=== PATIENT | male | born 1960 | race Caucasian/White ===

== ENCOUNTER → 2023-01-25 07:35 | Outpatient (REF) | payer OTHER, SELFPAY | LOC: EMG 07:35 | PROVIDERS: ATTENDING PHYSICIAN Family Medicine | DX: M50.10 Cervical disc disorder with radiculopathy, unspecified cervical region (principal) | CPT/HCPCS: 95886; 95911 ==

== ENCOUNTER → 2023-10-29 08:27 | Outpatient (REF) | payer OTHER, SELFPAY | LOC: HWRAD 08:27 | PROVIDERS: ATTENDING PHYSICIAN Physician Assistant Medical; REFERRING PHYSICIAN Internal Medicine Gastroenterology | DX: F10.10 Alcohol abuse, uncomplicated (principal) | CPT/HCPCS: 76700 ==

== ENCOUNTER → 2023-11-15 09:09 | Outpatient (REF) | payer OTHER, SELFPAY | LOC: HWRAD 09:09 | PROVIDERS: ATTENDING PHYSICIAN Neurological Surgery; FAMILY PHYSICIAN Family Medicine | DX: M53.2X2 Spinal instabilities, cervical region (principal) | CPT/HCPCS: 72125 ==

== ENCOUNTER → 2023-11-28 18:17 | Outpatient (REF) | payer OTHER, SELFPAY | LOC: MRI 18:17 | PROVIDERS: ATTENDING PHYSICIAN Neurological Surgery; FAMILY PHYSICIAN Family Medicine | DX: G95.9 Disease of spinal cord, unspecified (principal); M53.2X2 Spinal instabilities, cervical region | CPT/HCPCS: 72141 ==

== ENCOUNTER → 2023-12-07 13:53 | Outpatient (REF) | payer OTHER, SELFPAY | LOC: HWRCS 13:53 | PROVIDERS: ATTENDING PHYSICIAN Internal Medicine Cardiovascular Disease; FAMILY PHYSICIAN Family Medicine | DX: I48.0 Paroxysmal atrial fibrillation (principal) | CPT/HCPCS: 93306 ==

== ENCOUNTER 2024-01-07 17:57 | Inpatient (IN) | payer OTHER, SELFPAY ==
[2024-01-07] VITALS (41 sets, daily range): BP systolic 63–163; BP diastolic 47–111
[2024-01-07 16:00] LABS: Glucose - Point of Care 166 mg/dl (70-99)
[2024-01-07] MEDS: NSS 1000 IV ×2 (16:05→22:10)
[2024-01-07] MEDS: LEVOPHED 250 IV (16:08)
[2024-01-07 16:31] LABS: INR 1.33; PT 16.3 Sec (11.4-14.6)
[2024-01-07] MEDS: ASPIRIN 300 MG RECTAL (16:36)
[2024-01-07 16:52] LABS: Hematocrit 37.3 % (39.0-52.0); Hemoglobin 12.4 g/dL (13.0-18.0); Mean Corp Hgb Conc. 33.2 g/dL (33.0-37.0); Mean Corpuscular Volume 96.4 fL (80.0-94.0); Mean Platelet Volume 10.9 fL (7.4-10.4); Platelet Count 161 10^3/uL (130-400); Red Blood Cell Count 3.87 10^6/uL (4.70-6.10); Red Cell Dist. Width 13.2 % (11.5-14.5); White Blood Cell Count 13.2 10^3/uL (4.8-10.8)
--- NOTE | 2024-01-07 16:54 | ED.GENMED ---
History of Present Illness
General
Chief Complaint: CODE
Time Seen by Provider: 01/07/24 15:59
History of Present Illness
History of Present Illness:
63-year-old male with history of atrial fibrillation on Pradaxa, hypertension, history of EtOH and GI bleeding presenting to the emergency department as a code. Patient witnessed arrest from home. Per medics, patient had allegedly been complaining
of chest pain, became unresponsive at home with at home. Expected downtime was 10 minutes. CPR was started by police on arrival and continued when medics arrived. Patient did receive pulses and route to the hospital, after doses of push dose
epi. Prior to arrival to the hospital, again lost pulses.
Per medics, patient had a laminectomy a few days ago, released from the hospital yesterday. No additional history obtained at this time given patient's critical condition.
Past History
Past History
ED Past Medical History: HTN and Hypothyroidism
ED Past Surgical History: None
Social History
Personal:
Living: with family
Phy Exam
Physical Exam
Physical Exam:
General: Unresponsive
HEENT: Pupils fixed and dilated
Neck: appears supple
CV: Pulseless, Pipo device currently on the chest
Resp: Intubated with ET tube, ventilated by respiratory
Abd: Soft and non-distended
Extremities: No deformities, no swelling, no erythema, pulseless
Neuro: Unresponsive
: deferred
Rectal: deferred
Skin: Intact
Course
Orders/Labs/Results
Orders:
Orders
01/07/24 15:50
NORepinephrine 4 MG/250 ML [Levophed] 4 mg in 250 ml .ROUTE .STK-MED
01/07/24 15:52
Electrocardiogram (*1) Urgent
Reason for Study: Chest Pain
Cardiac Monitoring- Treatment ONCE
EKG- Treatment ONCE
IV Insert/Care/Rem.- Treatment PRN
O2 Therapy [RESP] Urgent
Titrate/Wean O2 to maintain O2 sat greater than (%): 90
Special Instructions: Maintain sats >/=90%
Pulse Ox/spot Check [RESP] Urgent
Quantity: 1
Special Instructions: ON ROOM AIR
01/07/24 15:54
Complete Blood Count/With Diff Urgent
Prothrombin Time Urgent
01/07/24 16:05
0.9% Sodium Chloride 1000 ml [Nss] 1,000 ml IV BOLUS
01/07/24 16:06
Portable Chest Xray [CR Chest Portable - 1 View] Urgent
Comment:
Reason For Exam: post intubation
Reason Study Needs to be Portable: Patient Unstable
01/07/24 16:15
NORepinephrine 4 MG/250 ML [Levophed] 4 mg in 250 ml IV PER PROTOCOL
Currently infusing. Continue current dose and titrate:: Yes
Titrate to keep:: MAP > 65 mmHg
Titrate by mcg/min:: 1-2 mcg/min
Frequency of titrations (minutes):: 5
Maximum dose in ICU in mcg/min:: 30
Maximum dose in IMU in mcg/min:: 8
Maximum dose in IVU in mcg/min:: 4
Begin to taper infusion when:: Remained at goal for 4hrs
Taper by mcg/min:: 1-2 mcg/min
Frequency of taper (minutes) if patient maintains goal:: 30
Taper to off?: Yes
If infusion off & no longer maintaining goal:: Contact Provider
01/07/24 16:31
Aspirin 300 mg RECTAL NOW STA
01/07/24 16:32
CT Head W/o Iv Contrast Urgent
Comment:
Reason For Exam: post arrest
Records Request [Obtain Records] As Directed
Dates of Information to be Released: Most recent
Type of Information Requested: Discharge Summary
Last Office Visit H&P
ECG/Cardiology Results
Obtain Records from: [facility] Dr Tamayo
Comment: STAT
01/07/24 16:34
Echo Follow-up Study Stat
Reason for Study: cardiac arrest
01/07/24 16:42
Hall [Hall Placement- Treatment] ONCE
Reason for insertion: I&O's Critical Care
01/07/24 16:56
Comprehensive Metabolic Panel Urgent
Troponin I Urgent
01/07/24 17:02
CT Chest Pe Study Urgent
Comment:
Reason For Exam: post arrest
Abnormal Lab Results
01/07/24 01/07/24
15:54 15:59
WBC 13.2 H 10^3/uL
(4.8-10.8)
RBC 3.87 L 10^6/uL
(4.70-6.10)
Hgb 12.4 L g/dL
(13.0-18.0)
Hct 37.3 L %
(39.0-52.0)
MCV 96.4 H fL
(80.0-94.0)
MCH 32.0 H pg
(27.0-31.0)
MPV 10.9 H fL
(7.4-10.4)
PT 16.3 H Sec
(11.4-14.6)
POC Glucose 166 H mg/dl
(70-99)
01/07/24 15:54
Vital Signs
Initial and Last Documented VS:
Initial Vital Signs
Pulse Resp BP Pulse Ox
166 18 156/95 98
01/07/24 15:53 01/07/24 15:53 01/07/24 15:53 01/07/24 15:53
Last Documented Vital Signs
Temp Pulse Resp BP Pulse Ox
95.7 F L 118 14 125/83 94
01/07/24 17:02 01/07/24 17:00 01/07/24 17:00 01/07/24 17:00 01/07/24 17:00
MDM/Problems Addressed
MDM/Problems Addressed:
63-year-old male with history of atrial fibrillation on Pradaxa and hypertension presenting as a cardiac arrest and code. Patient pulseless on arrival.
Patient immediately brought into resuscitation room upon arrival, with ACLS resumed. 3 rounds of epinephrine administered, no shocks advised. Patient also received 2 A of bicarb and calcium. Patient subsequently with ROSC. EKG obtained post
ROSC, appearance of a flutter. Prehospital EKG concerning with diffuse ST depressions. Will discuss with cardiology. Pencm-qg-mwxa glucose within normal limits. Will update family.
16:40 - Did discuss with family, notes that Pradaxa was discontinued 5 days prior to patient's recent laminectomy. Patient may have had a stroke or embolic event given this information. Anticoagulation has not yet been resumed. In addition,
notes that prior to becoming unresponsive, was complaining of upper back pain. He took an Ativan and a cyclobenzaprine and then became unresponsive. Cardiology at bedside, Dr. Laguerre and Dr. Bartholomew. Plan to give aspirin, obtain CT brain and CT
chest imaging and then make ultimate decision regarding need for cardiac catheterization. Patient's blood pressure did drop, so currently on Levophed. Patient is also a cooling candidate, will initiate
*EKG
Interpreted by ED Provider?: Yes
EKG Intrepretation Date: 01/07/24
EKG Intrepretation Time: 16:57
Interpretation: abnormal
Heart Rate: 163
Rate: tachycardiac
Rhythm: atrial flutter
[place]: normal axis
QRS Pattern: right bundle branch block
Ischemia: non-specific ST changes
*Critical Care Note
Total Time (30-74mins, 75-104mins- exclusive of procedures): 70
comment:
The high probability of a clinically significant, sudden or life threatening deterioration of the cardiovascular system(s) required my full and direct attention, intervention and personal management. The aggregate critical care time was 70 minutes.
This time is in addition to time spent performing reported procedures but includes the following:
[x] Data Review and interpretation
[x] Patient assessment and monitoring of vital signs
[x] Documentation
[x] Medication orders and management
ED Attending Note
-
Portions of this chart may have been created with voice recognition software.� Occasional wrong word or��sound alike� substitutions may have occurred due to the inherent limitations of voice recognition software.
Discharge Plan
Departure
Patient Disposition: Admit
Date of Disposition: 01/07/24
Time of Disposition: 17:06
Presentation/result/management discussed w/ accepting MD/DO: Hospitalist
Patient with high blood pressure during this ER visit?: No
Condition: Critical
Discharge Problem:
Cardiac arrest
Prescriptions:
No Action
levothyroxine 200 MCG tablet
200 mcg PO HS
pantoprazole 40 MG tablet,delayed release (DR/EC)
40 mg PO DAILY
losartan 50 mg Tablet
50 mg PO DAILY
tizanidine 2 mg Tablet
2 mg PO Q6HPRN PRN (Reason: muscle spasms)
metoprolol succinate 50 mg Tablet Extended Release 24 Hr
50 mg PO HS
oxycodone 5 mg Tablet
5 mg PO Q6HPRN PRN (Reason: severe pain)
Patient Comments:
01/07/24: Last filled 08/25/23 for 40 tablets at [facility], per PDMP
Referrals:
Zay Quispe MD [Family Provider] -
Interventions
Interventions:
*Risk Screen - Suicide Last Done: 01/07/24 16:10
*General Assessment Last Done: 01/07/24 15:58
*Neglect/Abuse Screening Last Done: 01/07/24 15:58
*ED COVID-19 Vaccine History Last Done: 01/07/24 15:58
ED- Cardiac Assessment Last Done: 01/07/24 16:12
ED- Pulmonary Assessment Last Done: 01/07/24 16:12
Discharge Date and Time
Print Language: ESTONIAN
--- NOTE | 2024-01-07 17:09 | CON.CAR ---
Addendum entered and electronically signed by Pasquale Bartholomew MD 01/07/24 18:26:
63 yo male with PMH of paroxysmal A fib s/p PVI 2021, HTN, laminectomy on 01/03/24 at [place] admitted following cardiac arrest. He called 911 for chest pain. Police arrived at scene. Patient was awake, then became unresponsive, and CPR was
started. Was also given epi once EMS arrived with ROSC. At time of my exam, patient is intubated, not responding to stimuli, pupils dilated/fixed. EKG shows: A fib with RVR, low voltage, poor R wave progression. STAT echo: EF normal. TnI 0.035.
Cardiac arrest. Patient is not responsive. There are no ST elevations on EKG, and trop is only mildly elevated so far. Discussed with interventional cards: will not plan for emergent cath at this time.
Will check head CT and CT for PE.
If head CT clear, will start heparin drip. He already received rectal ASA.
To assess for cardiac cath during this admission.
If A fib with RVR continues, can use amiodarone drip. He is weaning off of levophed.
Original Note:
Consultation
Consultation Request
Date/Time Consultation Requested: 01/07/2024 16:50
Date/Time Consultation Performed: 01/07/2020 16:55
Requesting Provider: Dr. Macias
Performing Provider: JAVY Aguilar for Dr. Bartholomew
Reason for Consultation: Cardiac arrest
Medical History
-
Chief Complaint: Cardiac arrest
History of Present Illness:
Arnaldo Caicedo is a 63-year-old male (known to Dr. 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 He called EMS for chest pain and upper back pain. He took as needed Ativan and tizanidine. When the police arrived, he became
unresponsive. CPR started, EMS then arrived. ACLS started. ROSC achieved but then pulses were lost en route. ROSC achieved after high-quality CPR and epinephrine x 3 in resuscitation room. The patient had a laminectomy and was released from the
hospital yesterday. Records have been urgently requested. He is intubated and unresponsive. He is requiring Levophed for blood pressure support. A stat echocardiogram has been ordered. A head CT is pending.
Past Medical History
Past Medical History: Arrhythmias (Paroxysmal atrial fibrillation [2021]), Cancer (Tonsillar [resection and XRT], prostate), GERD, HTN, Hypothyroidism and Other (PUD in the setting of NSAID use)
Past Surgical History: Appendectomy, Orthopedic and Urological (Prostatectomy)
Social History
Tobacco: Former Smoker
Alcohol: Other (Unable to obtain)
Drug: Other (Unable to obtain)
Personal:
Living: With Family
Family History
Family History: Unable to Obtain
Allergies / Home Medications
Allergy/AdvReac Type Severity Reaction Status Date / Time
No Known Allergies Allergy Verified 01/07/24 16:30
�Medication �Instructions �Recorded �Confirmed �Type
levothyroxine 200 mcg tablet 200 mcg PO HS Thyroid 10/08/21 01/07/24 History
pantoprazole 40 mg tablet,delayed 40 mg PO DAILY 01/05/22 01/07/24 History
release
losartan 50 mg tablet 50 mg PO DAILY 01/07/24 01/07/24 History
metoprolol succinate 50 mg 50 mg PO HS 01/07/24 01/07/24 History
tablet,extended release 24 hr
oxycodone 5 mg tablet 5 mg PO Q6HPRN PRN severe pain 01/07/24 01/07/24 History
tizanidine 2 mg tablet 2 mg PO Q6HPRN PRN muscle spasms 01/07/24 01/07/24 History
Review of Systems
-
Unable to obtain full review of systems at this time due to: Acuity and Patient Intubation
Physical Exam
Vital Signs
Temp Pulse Resp BP Pulse Ox
95.7 F L 118 14 125/83 94
01/07/24 17:02 01/07/24 17:00 01/07/24 17:00 01/07/24 17:00 01/07/24 17:00
Lab Results
01/07/24 15:54
Troponin I Cancelled 01/07/24 15:54
Physical Exam
General: Well Developed, Well Nourished, No Apparent Distress and Comfortable
HEENT: Normocephalic, Anicteric and Moist Mucous Membranes
Respiratory: Other (Mechanical ventilation)
Cardiac: S1/S2 and Regular Rhythm (Tachycardia); Negative Peripheral Edema
Breast: Deferred by me
GI: Soft, Non Distended and Normal Bowel Sounds
Rectal: Deferred by Provider
Genito-urinary: No Costovertebral Tender
Musculoskeletal: No Clubbing, No Cyanosis and No Edema
Skin: Warm and Dry
Neuro: Other (Unresponsive, dilated fixed bilateral pupils)
Hematologic/Lymphatic: No Lymphadenopathy
Psych: Other (Unresponsive)
Impression / Plan
-
Cardiac arrest
-CPR started by police then ACLS by EMS, ROSC achieved then lost en route, ACLS resumed in resuscitation room, ROSC achieved after 3 rounds of epinephrine and high-quality CPR
-Prior to arrest, he endorsed chest and upper back pain
-Unresponsive and intubated requiring mechanical ventilation and vasopressor support
-Head CT pending
-ASA 300mg CA given in resuscitation room
Abnormal troponin, type unknown
-Expect it to be elevated given CPR
-Trend to peak
-EKG in am
Paroxysmal atrial fibrillation
-Sinus tachycardia on telemetry
-Oral Anticoagulation: Prior to spinal surgery he was on dabigatran 150 mg twice daily
-Per primary elementary school teacher's aide, there was a possibility of stopping dabigatran altogether given his low [id number] score and successful ablation
-[id number]: Score 1 (HTN)
Hypertension, medical therapy on hold as he is requiring vasopressor support
Sinus tachycardia, on metoprolol succinate 50 mg in the outpatient setting, note 100 mg caused fatigue
Hypothyroidism on levothyroxine
Prior tonsillar cancer status post resection and XRT
Prior prostate cancer, status post prostatectomy
Former smoker
Data Reviewed
-
EKG: Report Reviewed by me (SVT, low voltage QRS, IRBBB, anterolateral ST abnormality, rate 163 bpm)
Radiology: Report Reviewed by me (CXR: No active cardiopulmonary disease. The tip of the endotracheal tube is in satisfactory position 3.7 cm above the elliott New postoperative changes in the cervical spine)
Medical Tests (Nuc Med, Echo etc): Report Reviewed by me (Priorechocardiogram report)
Labs: Labs Reviewed by me
Old Records: Reviewed
[2024-01-07 17:20] LABS: AST (SGOT) 66 U/L (17-59); Albumin 3.2 g/dl (3.5-5.0); Alkaline Phosphatase 133 U/L (38-126); Blood Urea Nitrogen 17 mg/dl (9-20); Calcium 9.6 mg/dl (8.4-10.2); Carbon Dioxide 19 mmol/L (22-30); Chloride 97 mmol/L (98-107); Glucose 183 mg/dl (70-99); Potassium 3.7 mmol/L (3.5-5.1); Sodium 134 mmol/L (135-145); Total Bilirubin 1.1 mg/dl (0.2-1.3); Total Protein 5.5 g/dl (6.3-8.2); eGFR 57.18
[2024-01-07 17:25] LABS: Urine Albumin 2+ (Neg - Trace); Urine Bilirubin Negative (Negative); Urine Character Slightly Cloudy (Clear); Urine Color Yellow; Urine Glucose 1+ (Negative); Urine Ketone Negative (Negative); Urine Leukocyte Negative (Negative); Urine Nitrite Negative (Negative); Urine Occult Blood 2+ (Negative); Urine Specific Gravity 1.015 (<1.030); Urine Urobilinogen Negative (Neg - 1+)
[2024-01-07 17:33] LABS: Troponin I 0.035 ng/ml
--- NOTE | 2024-01-07 18:04 | HPS.HSE ---
Addendum entered and electronically signed by Mandi Gomez MD 01/07/24 18:09:
Possibly PEA arrest. Patient on Levophed.
Original Note:
Family Physician
-
Family Physician: Zay Quispe
Chief Complaint
-
cardiac arrest
History of Present Illness
63-year-old male past medical history of tonsillar cancer 20 years ago with involvement of cervical spine status post radiation status post spinal fusion by Dr. Tamayo this past , prostate cancer status post surgery, bleeding gastric
ulcer, paroxysmal atrial fibrillation on Pradaxa, essential hypertension, hypothyroidism, presenting with cardiac arrest.
Patient recently underwent laminectomy for cervical spine involvement of tonsillar cancer this past . Drain was placed and during surgery. He followed up with Dr. Tamayo on Sunday and Sunday who removed the drain with a lot of bloody
serosanguineous discharge.
Patient was in his normal state of health today and was complaining of some productive cough that was felt to originate in the throat. He was also complaining of pain in his back not at the site of the surgical incision. He took his oxycodone and
tizanidine for pain and felt tired afterwards. He laid down in bed and walked away for a few minutes. When she came back he was unresponsive. She called EMS and was instructed to perform CPR.
Expected downtime was 10 minutes. He achieved ROSC en route and then lost pulses. He was given bicarb x 2, calcium, 3 epi and started on Levophed in the emergency room.
Patient drinks 1 glass of vodka every night although he has been drinking less due to recent surgery. He is a former smoker.
Medical History
Past Medical History
Past Medical History: Reports Other (tonsillar cancer 20 years ago with involvement of cervical spine status post radiation status post spinal fusion by Dr. Tamayo this past , prostate cancer status post surgery, bleeding gastric ulcer,
paroxysmal atrial fibrillation on Pradaxa, essential hypertension, hypothyroidism, )
Past Surgical History: Reports Other (Bilateral hip replacements, knee replacement, carpal tunnel surgery, prostate cancer surgery, laminectomy, spinal fusion)
Social History
Tobacco: Former Smoker
Alcohol: Daily
Drug: None
Family History
Family History: Not pertinent
Allergies / Home Medications
Allergies reflects when Allergies were last updated in [facility].
Home Medications with original date entered in [facility]
Allergy/Medication List:
Allergies
Allergy/AdvReac Type Severity Reaction Status Date / Time
No Known Allergies Allergy Verified 01/07/24 16:30
Home Medications
levothyroxine 200 mcg tablet 200 mcg PO HS Thyroid 10/08/21
pantoprazole 40 mg tablet,delayed release 40 mg PO DAILY 01/05/22
dabigatran etexilate 150 mg capsule 150 mg PO BID Blood Clot Prevention/Tx 01/07/24
losartan 50 mg tablet 50 mg PO DAILY 01/07/24
metoprolol succinate 50 mg tablet,extended release 24 hr 50 mg PO HS 01/07/24
oxycodone 5 mg tablet 5 mg PO Q6HPRN PRN severe pain 01/07/24
tizanidine 2 mg tablet 2 mg PO Q6HPRN PRN muscle spasms 01/07/24
Review of Systems
-
History Source: Patient
A 12 point ROS was completed and negative except as noted: Yes
Constitutional: Reports No Symptoms
EENT: Reports No Symptoms
Respiratory: Reports See HPI
Cardiac: Reports See HPI
Abdomen/GI: Reports No Symptoms
: Reports No Symptoms
Musculoskeletal: Reports No Symptoms
Skin: Reports No Symptoms
Neurological: Reports No Symptoms
Endocrine: Reports No Symptoms
Hematologic/Lymphatic: Reports No Symptoms
Psych: Reports No Symptoms
Physical Exam
Vital Signs
Vital Signs
Temp Pulse Resp BP Pulse Ox
95.5 F L 108 16 127/83 98
01/07/24 17:57 01/07/24 17:33 01/07/24 17:33 01/07/24 17:33 01/07/24 17:33
Physical Exam
General: Well Developed, Well Nourished and No Apparent Distress
HEENT: Moist mucous membranes, Atraumatic and Other (dilated pupils )
Respiratory: Clear
Cardiac: S1/S2 and Regular Rhythm; No Murmur or Rub
GI: Soft, Non Tender, Non Distended and Normal Bowel Sounds; No Organomegaly
Rectal: Deferred by Provider
Musculoskeletal: No Clubbing, No Cyanosis and No Edema
Skin: No Rash
Neuro: Nonfocal/grossly intact
Laboratory Results
-
01/07/24 15:54
01/07/24 16:56
Laboratory Results
PT 16.3 Sec (11.4-14.6) H 01/07/24 15:54
INR 1.33 01/07/24 15:54
Total Bilirubin 1.1 mg/dl (0.2-1.3) 01/07/24 16:56
AST 66 U/L (17-59) H 01/07/24 16:56
ALT Cancelled 01/07/24 15:54
Alkaline Phosphatase 133 U/L (38-126) H 01/07/24 16:56
Troponin I 0.035 ng/ml H* 01/07/24 16:56
Data Reviewed
-
Lab Data: Labs Reviewed by me
Old Records: Reviewed
Impression/Plan
-
IMPRESSION:
PLAN:
# Cardiac arrest unclear etiology possibly possibly cardiac arrhythmia versus pulmonary embolism
-EKG shows what looks like atrial flutter, incomplete right bundle branch block, left anterior fascicular block
-Prehospital EKG apparently showed ST depressions
-Echo shows EF of 60 to 65%, no regional wall motion abnormalities, dilated RV, mild trace regurgitation, mild pulmonary hypertension
-Troponin minimally elevated at 0.035, continue to trend
-Continue rectal aspirin daily
-Heparin drip if CT head does not show hemorrhage
-Unfortunately patient with dilated pupils, not waking up despite being off sedation
-Targeted temperature management to be started if CT head does not show evidence of hemorrhage
-IV Protonix
# Atrial flutter with RVR
# History of paroxysmal atrial fibrillation
-If heart rates do not improve with IV fluids can start amiodarone drip
-Continue metoprolol
-Heparin drip
-Hold Pradaxa
# Acute kidney injury secondary to decreased renal perfusion from cardiac arrest
-IV fluids
Daily alcohol use
-Monitor for alcohol withdrawal
Tonsillar cancer with involvement of cervical spine status post laminectomy this past
-Drain since removed
-Patient has been off of Pradaxa since 1 week prior to surgery
-hold oxycodone, tizanidine
Prostate cancer status post surgery
History of bleeding gastric ulcer
Essential hypertension
Hypothyroidism
-Continue levothyroxine
Full code
DVT prophylaxis�heparin drip once CT head available
N.p.o.
[2024-01-07 18:28] LABS: ALT (SGPT) < 10 U/L (0-50)
[2024-01-07 18:32] LABS: Urine Bacteria Few (Negative); Urine White Cell 0-2 /HPF (0-5)
[2024-01-07 19:23] LABS: % Basophils 0.5 % (0-2); % Eosinophils 0.6 % (0-6); % Immature Granulocytes 7.6 % (0-0.5); % Lymphocytes 53.3 % (20.5-51.1); % Monocytes 4.8 % (1.7-9.3); % Neutrophils 33.2 % (42.2-75.2); Absolute Basophils 0.1 10^3/uL (0-0.2); Absolute Eosinophils 0.1 10^3/uL (0-0.7); Absolute Lymphocytes 7.1 10^3/uL (1.2-3.4); Absolute Monocytes 0.6 10^3/uL (0.1-0.6); Absolute Neutrophils 4.4 10^3/uL (1.4-6.5); Nucleated Red Blood Cells % 0.2 % (-)
--- NOTE | 2024-01-07 20:22 | W.PN.UPDATE ---
Update Note
Progress Note Update
Discussion heparin drip with target temperature cooling protocol for afib with Dr Morales and he is ok with holding heparin until rewarm period.� SQ heparin ordered.
[2024-01-07 20:24] LABS: Magnesium 1.9 mg/dl (1.6-2.3)
[2024-01-07] MEDS: SUBLIMAZE 50 MCG IV (20:30)
--- NOTE | 2024-01-07 20:30 | W.PN.UPDATE ---
Update Note
Progress Note Update
Procedure Note: Arterial Line�
� Right Wrist Arrow 20 (07/01)�
Diagnosis:��Cardiac Arrest
IV Line Comments: Uneventful Procedure�
Augusto's test completed pre-procedure: Yes�
A-Line Comments: Sterile technique as per standard protocol, Ultrasound guided insertion�
Functioning A-line in situ: Yes�
A-line Insertion Start Time:��1999
A-line in at:�2004�
[2024-01-07 20:54] LABS: TSH Reflex To Free T4 0.04 uIU/ml (0.47-4.68)
[2024-01-07 21:21] LABS: Glucose - Point of Care 258 mg/dl (70-99)
[2024-01-07 21:25] LABS: Free T4 2.22 ng/dl (0.78-2.19)
[2024-01-07] MEDS: NOVOLIN R 100 UNITS IV (22:00)
[2024-01-07] MEDS: NOVOLIN R INSULIN INFUSION 100 IV (22:00)
[2024-01-07 22:04] LABS: B.E. -4.3 mmol/L; HCO3 21.6 mmol/L (21-28); Ionized Calcium 1.26 mMOL/L (1.15-1.33); O2 Saturation % 96.3 % (94-98); PCO2 42 mmHg (35-48); PO2 119 mmHg (83-108); Potassium 3.1 mMOL/L (3.5-5.1); Sodium 130 mMOL/L (136-145); pH 7.32 (7.35-7.45)
[2024-01-07] MEDS: ZOSYN 50 IV (22:10)
[2024-01-07 22:14] LABS: Hemoglobin 13.1 g/dL (13.0-18.0); Mean Corp Hgb Conc. 35.4 g/dL (33.0-37.0); Mean Corpuscular Hgb 32.8 pg (27.0-31.0); Mean Corpuscular Volume 92.5 fL (80.0-94.0); Mean Platelet Volume 9.1 fL (7.4-10.4); Platelet Count 218 10^3/uL (130-400); White Blood Cell Count 6.2 10^3/uL (4.8-10.8)
[2024-01-07] MEDS: REFRESH CELLUVISC GEL 1 DROPS BOTH EYES (22:15)
[2024-01-07 22:16] LABS: APTT 31.4 Sec (23.4-35.0)
[2024-01-07 22:25] LABS: Triglycerides 114 mg/dl (10-149)
--- NOTE | 2024-01-07 22:33 | VATNOTE ---
left picc redirected @ approx. 2150 per CXR report. 2nd CXR film done. Awaiting official results.
[2024-01-07 22:46] LABS: Troponin I 0.162 ng/ml
[2024-01-07] MEDS: KCL 260 MEQ IV (23:11)
[2024-01-07 23:15] LABS: Prealbumin (Transthyretin) 7.9 mg/dl (17.6-36.0)
[2024-01-07] MEDS: BUSPAR TUBE (23:16)
[2024-01-07] MEDS: TYLENOL ORAL SOLUTION 650 MG TUBE (23:16)
[2024-01-07 23:43] LABS: Glucose - Point of Care 231 mg/dl (70-99)
[2024-01-08] MEDS: SUBLIMAZE 50 MCG IV ×3 (00:20→04:43)
[2024-01-08] MEDS: HEPARIN 5000 UNITS SC ×2 (00:21→08:15)
[2024-01-08 00:48] LABS: Glucose - Point of Care 187 mg/dl (70-99)
--- NOTE | 2024-01-08 01:00 | PTCARENOTE ---
recd pt at 1900 from ED. pt completely unresponsive. pupils equal, 4mm. no corneal reflex. weak gag reflex with ETT suctioning. TTM started. ST to SR on monitor. a line placed by PAPER MACHINE OPERATOR. cooling began at 2116 and pt was at target temp at 2116. pt
intubated w/ 7 05/01 @26. POX 99%. vent settings- 18/500/80%/5 of peep. NGT placed. therm lowry draining parisa urine. rt radial a line, double luman PICC placed. rt AC 18 and rt upper arm 18 flushed and patent. glycemic protocol started. fent gtt
started. family educated at bedside. safe environment maintained.
[2024-01-08] MEDS: SUBLIMAZE 100 IV ×2 (01:16→09:59)
[2024-01-08] MEDS: ZOSYN 50 IV ×4 (01:22→19:45)
--- NOTE | 2024-01-08 01:24 | VATNOTE ---
2345-REDIRECTED 5FR DL L PICC PER PROTOCOL D/T MALPOSITION AND COIL PER RADIOLOGIST AND POST INSERTION CXR.BOTH LUMENS FLUSH WELL AND HAVE A GOOD BR. SITE APPEARS WNL. PCN AWARE OF INTERVENTION AND CXR PENDING.
--- NOTE | 2024-01-08 01:26 | VATNOTE ---
0100-SPOKE WITH HERNÁN PALAFOX AND HE RECOMMENDED THAT PICC BE RETRACTED 3CM FOR SVC/CAJ TIP PLACEMENT AFTER PREVIOUS REDIRECT. NO ADDITIONAL CXR NECESSARY AT THIS TIME. PICC RETRACTED 3CM AND REDRESSED. BOTH LUMENS FLUSH WELL AND HAVE A GOOD
BR. PCN AWARE OF INTERVENTION AND OUTCOME. PERIPHERAL SITE REMOVED DOCUMENTED.
[2024-01-08 01:40] LABS: Glucose - Point of Care 162 mg/dl (70-99)
[2024-01-08 02:52] LABS: Glucose - Point of Care 112 mg/dl (70-99)
--- NOTE | 2024-01-08 02:57 | PTCARENOTE ---
Tamara from [facility] notified about pt status. 'Lisette' will be point of contact.
--- NOTE | 2024-01-08 03:13 | PTCARENOTE ---
spoke to tereza soler [facility].
[2024-01-08] MEDS: CARDENE 200 IV ×2 (03:31→19:00)
[2024-01-08 03:49] LABS: Glucose - Point of Care 97 mg/dl (70-99)
[2024-01-08] MEDS: TYLENOL ORAL SOLUTION 650 MG TUBE ×4 (04:19→21:31)
[2024-01-08] MEDS: BUSPAR 30 MG TUBE ×3 (04:19→21:31)
[2024-01-08 04:24] LABS: B.E. -1.2 mmol/L; HCO3 23.6 mmol/L (21-28); O2 Saturation % 93.6 % (94-98); PCO2 39 mmHg (35-48); PO2 65 mmHg (83-108); pH 7.39 (7.35-7.45)
[2024-01-08 04:37] LABS: APTT 30.8 Sec (23.4-35.0)
[2024-01-08 04:44] LABS: Glucose - Point of Care 82 mg/dl (70-99)
[2024-01-08 04:45] LABS: Hematocrit 36.4 % (39.0-52.0); Hemoglobin 13.1 g/dL (13.0-18.0); Mean Corpuscular Hgb 31.5 pg (27.0-31.0); Mean Corpuscular Volume 87.5 fL (80.0-94.0); Mean Platelet Volume 9.2 fL (7.4-10.4); Platelet Count 175 10^3/uL (130-400); Red Blood Cell Count 4.16 10^6/uL (4.70-6.10); Red Cell Dist. Width 13.1 % (11.5-14.5); White Blood Cell Count 4.8 10^3/uL (4.8-10.8)
[2024-01-08 04:47] LABS: NT-proBNP 1930 pg/ml
[2024-01-08 04:50] LABS: ALT (SGPT) 29 U/L (0-50); AST (SGOT) 70 U/L (17-59); Albumin 3.5 g/dl (3.5-5.0); Alkaline Phosphatase 124 U/L (38-126); Blood Urea Nitrogen 16 mg/dl (9-20); Calcium 9.8 mg/dl (8.4-10.2); Carbon Dioxide 25 mmol/L (22-30); Chloride 100 mmol/L (98-107); Glucose 83 mg/dl (70-99); HDL Cholesterol 43 mg/dl; LDL Cholesterol, Calculated 91 mg/dl; Potassium 3.5 mmol/L (3.5-5.1); Sodium 138 mmol/L (135-145); Total Bilirubin 1.6 mg/dl (0.2-1.3); Total Cholesterol 155 mg/dl (50-199); Total Protein 6.2 g/dl (6.3-8.2); Triglyceride 105 mg/dl (10-149); Very Low Density Lipoprotein 21 mg/dl (0-30); eGFR > 60.00
[2024-01-08 04:51] LABS: Troponin I 0.155 ng/ml
[2024-01-08 04:57] LABS: Prealbumin (Transthyretin) 8.8 mg/dl (17.6-36.0)
[2024-01-08] MEDS: MAGNESIUM SULFATE 100 IV (05:28)
[2024-01-08 05:55] LABS: Glucose - Point of Care 100 mg/dl (70-99)
[2024-01-08] MEDS: KCL 270 MEQ IV (06:47)
[2024-01-08 07:48] LABS: Glucose - Point of Care 101 mg/dl (70-99)
[2024-01-08 07:56] LABS: Absolute Neutrophils -Man Diff 3.7 10^3/uL (1.4-6.5); Band Neutrophils 13 % (0-3); Eosinophils 1 % (0-6); Lymphocytes 7 % (20-51); Monocytes 10 % (2-9); Segmented Neutrophils 66 % (42-75)
[2024-01-08 07:57] LABS: Metamyelocytes 2 % (-); Myelocytes 1 % (-)
[2024-01-08 07:58] LABS: Normal RBC Morphology Yes; Platelets Checked Yes; Total Cells Counted 100
--- NOTE | 2024-01-08 08:00 | PTCARENOTE ---
Addendum entered by Tatiana Parker RN 01/08/24 13:54:
TTM is ongoing.
Original Note:
Received pt unresponsive to verbal/noxious stimuli.Pupils sluggishly reactive 3mm.No corneal reflex boted.+ cough with deep suctioning via ETT noted.Occasional fasciculations noted right orbital and chin.SR noted.IVF,INsulin and Fentanyl gtts
infusing vie left PICC.Right A Line intact and zeroed,maintained at mid axiliary.# 7.5 ETT to vent.Decreased breath sounds throughout.suctioned for moderate amount thick vazquez secretions.POX 98%[place] intact to suction.No BM.Hall draining yellow
urine.
[2024-01-08] MEDS: ASPIRIN 300 MG RECTAL (08:16)
[2024-01-08] MEDS: PROTONIX IV 40 MG IV (08:16)
[2024-01-08] MEDS: REFRESH CELLUVISC GEL 1 DROPS BOTH EYES ×2 (08:16→19:46)
[2024-01-08] MEDS: NSS 1000 IV ×2 (08:18→21:25)
--- NOTE | 2024-01-08 08:35 | CON.NEURO4 ---
Addendum entered and electronically signed by Becca Lainez DO 01/08/24 17:35:
I have personally examined the patient. I agree with the PALLIATIVE CARE SPECIALIST's Note.
My addenda: 63 year-old male with cardiac arrest currently undergoing TTM. [place] was approximately 10 mins. 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 Agree with exam
and plan as documented below. cEEG monitoring in place.
Original Note:
Consultation - Neurology 4
-
CONSULTING PHYSICIAN: Becca Lainez DO
REFERRING PHYSICIAN: Hospitalists/JAVY Godfrey
DICTATED BY: JAVY Jorge
DATE/TIME OF REQUEST: 01/07/24
DATE/TIME OF CONSULTATION: 01/08/24
Reason for Consultation: Cardiac Arrest
History of Present Illness:
This is a 63-year-old right-handed male who has presented to the hospital on 01/07/24 with report of cardiac arrest. This information is obtained from medical records and nursing staff as patient is unable to provide a history. Patient has a history
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 Robles. He was ultimately referred to Neurosurgery underwent a C2-C5 laminectomy by Dr. Tamayo at [facility] in
July 2023. In late September 2023 he sustained a trip and fall while wearing a soft collar. This resulted in his head feeling heavy/inability to hold it up. 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
swan-neck deformity, and on 01/03/24 he underwent revision of this. His Pradaxa has been on hold for the procedure. Yesterday (01/08/24), he was in his usual state when he began to complain to his of cough and unusual back pain, not at his
surgical site. He took his oxycodone and tizanidine for pain and then laid down to rest. His went into another room for a short time, then upon returning found him unresponsive. She called 911 and CPR was initiated. On EMS arrival one round of
epinephrine was administered with achievement of ROSC with an estimated downtime of 10 minutes. En route to the ER, he became pulseless and was given epi x3, bicarb x2, calcium with achievement of ROSC. Patient as intubated en route. CT head was
obtained on arrival in the ER and is negative for any overt acute abnormalities. Patient is currently unresponsive, sedated on IV fentanyl, TTM in place.
Past Medical History: Paroxysmal Afib (Pradaxa), HTN, hypothyroidism, GI bleed, ETOH abuse, prostate cancer, tonsillar cancer, GERD, PUD, FLORES, colon polyps, cervical spine instability/cervical myelopathy
Surgical History: C2-C5 posterior fusion 07/2023, Cervical laminectomy one week ago, prostatectomy, appendectomy, tonsillectomy, b/l THR, knee surgery, cardiac ablation, cardioversion
Family History: Sister- [place] age 49.
Social History: Former smoker. Former heavy alcohol, reportedly had a drink yesterday. No illicit drug use.
Allergies: No known allergies.
Home Medications: See below.
Review of Symptoms:
Per the HPI. I am unable to obtain a complete review of systems�because of patient's inability to provide history.
Physical examination: Abdomen is nondistended, breathing is unlabored on mechanical ventilation, skin is warm and dry, no edema.
Neurologic Examination:
The patient is comatose/sedated on Fentanyl infusion. No eye opening. He does not follow any commands or make any attempts to speak. On cranial nerve assessment, pupils are 3 mm bilateral, round and sluggish to light and accommodation. SILAS visual
oneal. SILAS EOMS, gaze is midline. Negative Dolls eyes. Absent corneals. Absent gag. Diminished cough. There is no apparent facial asymmetry at rest. SILAS hearing. SILAS tongue and uvula. . Motor strengths are 0/5 bilateral upper and lower extremities
to pain on medical research [place] scale. No involuntary movement noted. Deep tendon reflexes are absent bilateral upper and lower extremities and Babinski is absent bilaterally. SILAS sensation and double simultaneous stimulation. SILAS coordination.
Lab Results: See below.
Neuro Imaging:
1. CT Head 01/07/24: No acute intracranial abnormality noted.
Differentials for the patient's presentation include:
1. Cardiac arrest x2, unclear total downtime.
2. Recent C2-C5 hardware repair.
3. CT head with no overt abnormalities. Neurological exam poor, does have a diminished gag reflex, otherwise protective reflexes are absent.
Patient has the following risk factors for their symptoms: HTN, Afib, recent surgery, alcohol
Recommendations:
-Continuous EEG pending.
-Plan to obtain MRI brain noncontrast in the next few days if mental status does not improve for better visualization of injury.
-Rectal aspirin daily for now. Resume heparin drip or OAC when able.
-Neurological checks per unit guidelines.
-Minimize sedation as tolerated for optimal neuro examination.
-DVT prophylaxis.
Discussed patient care with: Dr. Lainez, nursing staff.
Vital Signs and Labs
-
Vital Signs and Labs:
Vital Signs
Temp Pulse Resp BP Pulse Ox
96.1 F L 114 25 132/91 97
01/08/24 11:19 01/08/24 04:30 01/08/24 04:30 01/07/24 20:00 01/08/24 11:26
Lab Results
01/08/24 10:07
PT 16.3 Sec (11.4-14.6) H 01/07/24 15:54
INR 1.33 01/07/24 15:54
APTT 30.8 Sec (23.4-35.0) 01/08/24 04:11
Sodium 134 mmol/L (135-145) L 01/08/24 10:07
Potassium 3.7 mmol/L (3.5-5.1) 01/08/24 10:07
BUN 13 mg/dl (9-20) 01/08/24 10:07
Glucose 129 mg/dl (70-99) H 01/08/24 10:07
Calcium 8.9 mg/dl (8.4-10.2) 01/08/24 10:07
Phosphorus 3.0 mg/dl (2.5-4.5) 01/08/24 10:07
Bce-A-Chyitwsxwtt Pept 1930 pg/ml 01/08/24 04:11
LDL Cholesterol, Calc 91 mg/dl 01/08/24 04:11
Medications
-
Active Medications
Generic Name Dose Route Start Last Admin
Trade Name Freq PRN Reason Stop Dose Admin
Acetaminophen 650 mg 01/07/24 19:41
Acetaminophen 650 Mg Rectal Suppository RECTAL 02/04/24 19:40
Q4HPRN PRN
if unable to give via TUBE
Acetaminophen 650 mg 01/07/24 22:00 01/08/24 09:59
Acetaminophen (Oral Solution) 650 Mg/20.3 Ml Cup TUBE 02/04/24 21:59 650 mg
Q6H MARISOL Administration
Aspirin 300 mg 01/08/24 08:00 01/08/24 08:16
Aspirin 300 Mg Rectal Suppository RECTAL 02/05/24 07:59 300 mg
DAILY MARISOL Administration
Buspirone HCl 30 mg 01/07/24 22:00 01/08/24 04:19
Buspirone 15 Mg Tablet TUBE 02/04/24 21:59 30 mg
Q8H MARISOL Administration
Carboxymethylcellulose Sodium 1 drops 01/07/24 20:00 01/08/24 08:16
Carboxymethylcellulose Ophth Gel (Celluvisc) Droperette BOTH EYES 02/04/24 19:59 1 drops
BID MARISOL Administration
Dextrose 12.5 grams 01/07/24 21:12
Dextrose 50% (0.5 Grams/Ml) 50 Ml Syringe IV 02/04/24 21:11
[id number] PRN
BLOOD GLUCOSE < 70
Fentanyl Citrate 50 mcg 01/07/24 19:41 01/08/24 04:43
Fentanyl (50 Mcg/Ml) 100 Mcg/2 Ml Ampul IV 01/21/24 19:40 50 mcg
[id number] PRN Administration
see protocol
Protocol
Heparin Sodium 5,000 units 01/08/24 00:00 01/08/24 08:15
Heparin 5,000 Units/Ml 1 Ml Vial SC 02/05/24 00:00 5,000 units
Q8 MARISOL Administration
Piperacillin Sod/Tazobactam Sod 3.375 gram in 50 mls @ 100 mls/hr 01/07/24 20:00 01/08/24 08:16
Zosyn IV 50 mls
Q6H MARISOL Administration
Heparin Sodium 25,000 units in 250 mls @ 0 mls/hr 01/07/24 19:15
Heparin 71797 Units/250 Ml IV
PER PROTOCOL MARISOL
Protocol
Per Protocol
Norepinephrine Bitartrate 4 mg in 250 mls @ 0 mls/hr 01/07/24 19:41
Levophed IV
PER PROTOCOL MARISOL
Protocol
Per Protocol
Sodium Chloride 1,000 mls @ 80 mls/hr 01/07/24 19:41 01/08/24 08:18
Nss IV 1,000 mls
.[id number] MARISOL Administration
Vecuronium [place] 60 mg/ 250 mls @ 0 mls/hr 01/07/24 20:00
Sodium Chloride IV
PER PROTOCOL MARISOL
Protocol
Per Protocol
Insulin Human Regular 100 units in 100 mls @ 0 mls/hr 01/07/24 21:15 01/07/24 22:00
Novolin R Insulin Infusion IV 100 mls
PER PROTOCOL MARISOL Administration
Protocol
Per Protocol
Fentanyl Citrate 1,000 mcg in 100 mls @ 0 mls/hr 01/08/24 00:36 01/08/24 09:59
Sublimaze IV 100 mls
PER PROTOCOL MARISOL Administration
Protocol
Per Protocol
Nicardipine/Sodium Chloride 40 mg in 200 mls @ 0 mls/hr 01/08/24 03:00 01/08/24 03:31
Cardene IV 200 mls
PER PROTOCOL MARISOL Administration
Protocol
Per Protocol
Pantoprazole Sodium 40 mg 01/08/24 08:00 01/08/24 08:16
Pantoprazole Sodium 40 Mg/10 Ml Vial IV 02/05/24 07:59 40 mg
DAILY MARISOL Administration
Sodium Chloride 0 flush 01/07/24 20:00
Sodium Chloride 0.9% (Flush) Syringe IV 02/04/24 19:59
PER PROTOCOL MARISOL
Vecuronium [place] 9 mg 01/07/24 19:41
Vecuronium [place] (1 Mg/Ml) 10 Mg/10 Ml 0.1 mg/kg (9 mg) 01/10/24 19:41
IV
Q1HPRN PRN
BSAS >/= 1
Protocol
Home Medications
�Medication �Instructions �Recorded
levothyroxine 200 mcg tablet 200 mcg PO HS Thyroid 10/08/21
pantoprazole 40 mg tablet,delayed 40 mg PO DAILY Gastrointestinal 01/05/22
release Issue
dabigatran etexilate 150 mg capsule 150 mg PO BID Blood Clot 01/07/24
Prevention/Tx
losartan 50 mg tablet 50 mg PO DAILY Blood Pressure 01/07/24
metoprolol succinate 50 mg 50 mg PO HS Blood Pressure 01/07/24
tablet,extended release 24 hr
oxycodone 5 mg tablet 5 mg PO Q6HPRN PRN severe pain 01/07/24
tizanidine 2 mg tablet 2 mg PO Q6HPRN PRN muscle spasms 01/07/24
--- NOTE | 2024-01-08 08:55 | W.PN.HOSP.TC ---
Today's Communication/Plan
-
See A/P
Assessment / Plan
Assessment / Plan
63yo M with PHM s/p revision cervical surgery on 01/03/24 (with Dr. Tamayo at [facility]), tonsillar cancer involving cervical spine s/p radiation and tonsillectomy, afib previously on dabigatron (discontinued ~5 days prior to surgery) s/p PVI
2021, HTN who presented from home to ED [facility] for cardiac arrest 01/06. Per record review, he was recently discharged from [facility] following spinal surgery. Yesterday at home he reported chest/back pain and his found him unresponsive. ACLS by
EMS with ROSC en route to hospital. In ED, found to be in PEA and bicarb x2, calcium, epi x3 administered with continued ACLS, no shocks. ROSC achieved and levophed drip started.
#Cardiac arrest
#PEA
- Unclear etiology, possibly cardiac arrhythmia
- Chest CT w IV contrast negative for PE. Head CT negative for intracranial hemorrhage
- Echo 01/06: EF 60-65%, no regional wall motion abnormalities
- BNP 1930, troponin 0.35 --> 0.162 --> 0.155
- Remains intubated. Continue mechanical ventilation per respiratory. Continue fentanyl sedation
- Not currently requiring pressors. Continue monitoring BP via A line with systolic BP goal 140-160.
- Continue IVF, insulin protocol, electrolyte supplementation, rectal aspirin
- Hall in situ, clear yellow urine. Adequate UOP. Continue to monitor I&Os.
- Cooling protocol initiated at 01/06. Continue cooling for 24 hours, followed by gradual rewarming protocol
- Continue serial troponin, EKG, CMP, CBC
- Cardiology following. Plan for cardiac cath when euthermic. Anticoagulation per cardiology
- Neuro consulted. EEG pending. Continue following neuro exam
- Records requested from [facility]
#paroxysmal afib s/p ablation, PVI 2021
- Dabigatran reportedly held for about 5 days prior to surgery
- Hold dabigatron
- HR 90s this AM, no RVR
- Continue to monitor
#Aspiration pneumonia
- Continue zosyn
#Tonsillar cancer s/p radiation and tonsillectomy 2006
#Cervical myelopathy
#S/p C2-C5 laminectomy 07/2023
#Cervical hardware failure, kyphotic deformity, listhesis
#S/p revision cervical surgery with C2-T2 fusion 01/03/24
- Obtain records from [facility]
#KATTY
- Suspect secondary to poor renal perfusion during cardiac arrest
- Cr 1.4 on admission --> 0.8 today
#Daily alcohol use
- Monitor for signs/symptoms of alcohol withdrawal
- Supplement thiamine
#peptic ulcer disease/GERD
#H/o GI bleed
- IV protonix
#HTN
- Initially required levophed for pressure support, then cardene for hypertension. Both have been discontinued and BPs at goal
- Home metoprolol succinate 50mg qHS on hold
- Continue to monitor BPs via A line
- Reassess antihypertensives when stable
#Hypothyroidism
- Continue home levothyroxine 200mcg
- TSH 0.04 low, T4 2.22 high. Recheck TSH when stable
#H/o prostate cancer s/p prostatectomy
#Sleep apnea
#s/p uvuloplasty
Code status: full
VTE ppx: heparin
Diet: NPO
Dispo planning: TBD
Anticipated Discharge: > 48 hours
Subjective/Interval History
-
Date of Service: January 08, 2024
Admitted to hospital yesterday after cardiac arrest. Overnight, targeted temperature management began @ 2116 (96.8*F). Levophed and cardene drips were discontinued due to hypertension. Patient seen this AM in ICU, remains intubated.
Objective Data
-
Labs:
Laboratory Results
01/07/24 01/08/24 01/08/24
21:54 04:11 10:00
WBC 6.2 4.8
Hgb 13.1 13.1
Hct 37.0 L 36.4 L
Plt Count 218 D 175
APTT 31.4 30.8
HCO3 21.6 23.6
Sodium 138 Pending
Potassium 3.5 Pending
Chloride 100 Pending
Carbon Dioxide 25 Pending
BUN 16 Pending
Creatinine 0.8 Pending
Glucose 83 Pending
Calcium 9.8 Pending
Total Bilirubin 1.6 H Pending
AST 70 H Pending
ALT 29 Pending
Alkaline Phosphatase 124 Pending
01/08/24
16:00
WBC Pending
Hgb Pending
Hct Pending
Plt Count Pending
APTT
HCO3
Sodium
Potassium
Chloride
Carbon Dioxide
BUN
Creatinine
Glucose
Calcium
Total Bilirubin
AST
ALT
Alkaline Phosphatase
Vital Signs:
Vital Signs
Temp Pulse Resp BP Pulse Ox
96.2 F L 114 25 132/91 98
01/08/24 08:08 01/08/24 04:30 01/08/24 04:30 01/07/24 20:00 01/08/24 07:51
I&O
01/07/24 01/08/24 01/09/24
06:59 06:59 06:59
Intake Total 1016.9 / 1016.9
Output Total 1185 / 1185
Balance -168.1 / -168.1
Review of Systems
-
Unable to obtain full review of systems at this time due to: Patient Intubation
Physical Exam
-
General: Intubated
HEENT: Normocephalic, Atraumatic, Anicteric, [place] Conjunctivae and Other (pupils equal 3mm unresponsive to light; fixed upward gaze; absent corneal reflex)
Respiratory: Rhonchi and Other (intubated AC set rate 18, vol 500, 80% +5; +spontaneous breaths, RR 20)
Cardiac: Regular Rhythm and S1/S2
GI: Soft and Nondistended
Genito-urinary: Clear Urine and Hall
Musculoskeletal: No Cyanosis and No Edema
Skin: Dry, IV Access / Catheter Site (L arm PICC, R A line) and Other (cooling apparatus in place; hands and feet covered with socks )
Neuro: Other (weak cough with deep suctioning; absent corneal reflex, unresponsive to painful stimuli; patellar reflexes +1 symmetric bilaterally); Negative Awake
Data Reviewed
-
Diagnostic Radiology: Image personally visualized and interpreted, Report Reviewed by me and Discussed with Physician
CT Scan: Image personally visualized and interpreted, Report Reviewed by me and Discussed with Physician
Medical Tests (Nuc Med, Echo etc): Report Reviewed by me and Discussed with Physician
Labs: Labs Reviewed by me and Discussed with Physician
[2024-01-08 09:14] LABS: Glycohemoglobin (HgbA1c) 5.3 % (4.0-5.6)
--- NOTE | 2024-01-08 09:44 | W.PN.UPDATE ---
Update Note
Progress Note Update
63-year-old male presented with cardiac arrest. History obtained from alternate source other providers/medical records. 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 He is
followed by Dr. Robles. He had C2- C5 Laminectomy Dr. Spears at [facility] in July 2023. September 2023 he had tripped and fell. He was wearing a collar at that time. 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 He underwent a revision of the surgery on 01/03/2024. He was on Pradaxa which was on hold after surgery. Yesterday he had some pain in the back and a cough yesterday he took oxycodone and
Zanaflex and lay down. returned shortly and found him unresponsive she called 911. He received 1 round of epinephrine and CPR. ROSC was obtained. En route he became pulseless and received another 3 A of epinephrine and 2 A of bicarb and
calcium with ROSC again. He was intubated/enroute he was in PEA on arrival to the ER.
Seen in the ICU earlier today. Late documentation.
Intubated and sedated with fentanyl
Pupils sluggishly reactive to light 3 mm size
Has cough reflex with suctioning
Cardiovascular system S1-S2 appreciated
Chest clear to auscultation
Abdomen soft and nontender
Target temperature management protocol on, no facial droop reflexes plantar equivocal others unremarkable
Mild fasciculations noted on the right hemiface
# Cardiac arrest-Un shockable rhythm-PEA Arrest
Prehospital EKG with ST depressions. Echo-normal LV size and function. EF 60 to 65%. No LVH. Dilated RV and normal systolic function. Mild TR. Pulmonary pressure 40 mmHg.
Elevated troponin-trending down-
Continue with temperature management protocol
Continue aspirin
CT chest-negative for PE
EEG evaluate fasciculations and rule out any seizures
Neurology evaluation
May need heart catheterization when stable
Currently on fentanyl for sedation
Wean sedation as possible and reevaluate neurological status tomorrow.
Prognosis will depend on neurological recovery.
# Paroxysmal atrial fibrillation
History of ablation and cardioversion
Start heparin drip if and when okay with neurosurgeon given recent surgery
Hold Pradaxa
# Aspiration pneumonia-continue Zosyn
# Acute kidney injury likely from cardiac arrest- Resolved.
# Revision of cervical spine surgery 01/03/24. Originally had laminectomy C2-C5 July 2023.
# Hypertension-with hypertensive urgency-needed Cardene drip briefly. Hold losartan, metoprolol
# Hypokalemia-replaced
# Hypothyroidism-slightly elevated T4 and suppressed TSH. Watch and repeat
# Daily alcohol use(Former heavy alcohol)-watch for withdrawal. Add thiamine
# History of prostate cancer with history of surgery
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
# Peptic ulcer disease/GERD
# Sleep apnea with history of uvuloplasty
# Ex smoker
# DVT Prophylaxis-Heparin gtt when OK with Neuro surgery
# Full code
Discussed with ICU team
Called and left message
CC time 35 min
[2024-01-08 09:58] LABS: Glucose - Point of Care 120 mg/dl (70-99)
[2024-01-08 10:21] LABS: Hematocrit 33.7 % (39.0-52.0); Mean Corp Hgb Conc. 35.6 g/dL (33.0-37.0); Mean Corpuscular Hgb 31.3 pg (27.0-31.0); Mean Platelet Volume 9.3 fL (7.4-10.4); Platelet Count 160 10^3/uL (130-400); Red Blood Cell Count 3.83 10^6/uL (4.70-6.10); White Blood Cell Count 6.5 10^3/uL (4.8-10.8)
[2024-01-08 10:37] LABS: ALT (SGPT) 26 U/L (0-50); AST (SGOT) 60 U/L (17-59); Albumin 3.1 g/dl (3.5-5.0); Alkaline Phosphatase 107 U/L (38-126); Blood Urea Nitrogen 13 mg/dl (9-20); Calcium 8.9 mg/dl (8.4-10.2); Carbon Dioxide 27 mmol/L (22-30); Chloride 99 mmol/L (98-107); Estimated Creatinine Clearance 118 ml/min; Glucose 129 mg/dl (70-99); Magnesium 1.6 mg/dl (1.6-2.3); Potassium 3.7 mmol/L (3.5-5.1); Sodium 134 mmol/L (135-145); Total Bilirubin 1.3 mg/dl (0.2-1.3); Total CK 122 U/L (55-170); Total Protein 5.7 g/dl (6.3-8.2); eGFR > 60.00
[2024-01-08 11:24] LABS: CKMB 5.4 ng/ml (0.0-2.4)
--- NOTE | 2024-01-08 11:32 | PN.DE.MGMTRT ---
Insulin Management
- -
01/08/2024 Diabetes Management Consult
Patient admitted 01/06 s/p cardiac arrest at home. PMH afib, hypothyroid, HTN, ETOH use, GI bleed, tonsillar CA 20 years ago, prostate CA. Last had laminectomy for c-spine involvement of tonsillar CA. No HX of diabetes. A1C 5.3%, cr .8,
eGFR > 60.
Patient is currently intubated, critically ill. Currently on glycemic protocol requiring .3 to 8 units of insulin per hour. Will continue glycemic protocol. Discussed with patients nurse.
Diabetes History
- -
Pre-Admission Diabetes Regimen
01/07/24 01/07/24 01/08/24
15:54 16:56 04:11
Creatinine Cancelled 1.4 H 0.8
01/08/24
10:07
Creatinine 0.7
Lab Results
Hemoglobin A1c 5.3 % (4.0-5.6) 01/07/24 21:54
Insulin Pump Settings
IP Diabetes Regimen
01/07/24 01/07/24 01/07/24
15:54 15:59 16:56
Glucose Cancelled 183 H
POC Glucose 166 H
01/07/24 01/07/24 01/08/24
21:10 23:30 00:35
Glucose
POC Glucose 258 H 231 H 187 H
01/08/24 01/08/24 01/08/24
01:28 02:40 03:37
Glucose
POC Glucose 162 H 112 H 97
01/08/24 01/08/24 01/08/24
04:11 04:31 05:43
Glucose 83
POC Glucose 82 100 H
01/08/24 01/08/24 01/08/24
07:36 09:46 10:07
Glucose 129 H
POC Glucose 101 H 120 H
Patient Education
--- NOTE | 2024-01-08 12:00 | PTCARENOTE ---
Pt assessed.No change in assessment noted.Magnesium repleted as ordered.Fentanyl weaned. 24 hour EEG initiated as ordered.Pt's at bedside.She asked about the application of the rigid collar.Dr Tamayo texted.
[2024-01-08 12:07] LABS: Glucose - Point of Care 88 mg/dl (70-99)
[2024-01-08] MEDS: MAGONATE 86 MG PO (12:53)
[2024-01-08] MEDS: HEPARIN 25000 UNITS/250 ML IV (13:10)
[2024-01-08 13:38] LABS: Glucose - Point of Care 79 mg/dl (70-99)
--- NOTE | 2024-01-08 13:48 | W.PN.UPDATE ---
Update Note
Progress Note Update
Patient known to me
Presented status postcardiac arrest yesterday
He is postop day #5 from revision cervical surgery with C2-T2 fusion and correction of kyphotic deformity across C4-5.
He is cleared to be on full anticoagulation if so desired given his cardiac issues.
Observe for any possible delayed epidural hematoma however is unlikely at this point
Notify neurosurgery of any changes
--- NOTE | 2024-01-08 14:17 | CON.INTV ---
Consultation
Consultation Request
Date/Time Consultation Requested: 01/07/2024 at 19:37
Date/Time Consultation Performed: 01/07/2024 at 19:37
Reason for Consultation: Cardiac arrest
Medical History
-
Chief Complaint: Cardiac arrest
History of Present Illness:
The patient is a 63-year-old male who presented to the emergency department yesterday at 4 PM as a code. The patient was in his normal state of health but began to complain of a productive cough that was felt to originate in the throat. He also
was complaining of pain in his back not at the site of the surgical incision. He took an oxycodone and tizanidine for pain and felt tired afterwards. He decided to go to the couch and lie down for a few minutes and when the came back he was
unresponsive. She promptly called EMS and was instructed on how to perform CPR over the phone. The estimated downtime between when the patient was last seen conscious and the beginning of CPR was approximately 10 minutes. The did CPR alone
for 5 to 6 minutes prior to the arrival of police. Police arrived and took over CPR and EMS arrived after the police. EMS promptly transported the patient to [facility]'s emergency department. There was a return of spontaneous circulation
en route but then pulses were lost again. He was given bicarb x 2, calcium, 3 epi and was started on Levophed in the emergency room. There were no shocks given in the emergency department. EKG showed an appearance of atrial flutter. In the
emergency department the patient's pulse was 168, respirations were 18, blood pressure was 156/95, and oxygen saturation was 98%. Patient was subsequently admitted to the ICU for cardiac arrest management and monitoring.
Past medical records show suspicion of possible cervical myelopathy likely in the setting of a previous radiation for tonsillar cancer approximately 20 years ago. He had a C2-C5 laminectomy conducted by Dr. Tamayo at [facility] in July
2023. On September 2023 he had had a fall which resulted in one of the screws from his prior procedure becoming loose. He was wearing a collar at the time of this fall. He recently had a laminectomy on 01/03/2024 and stopped his Pradaxa for that
procedure.
Past Medical History
Past Medical History: HTN, Hypothyroidism and Other (Prior alcohol misuse, tonsillar cancer s/p radiation, prostate cancer, NSAID induced gastric ulcer, paroxysmal atrial fibrillation s/p ablation on 04/04/2022, FEDERICO thrombus on ROSA on 11/17/2021)
Social History
Tobacco: Former Smoker
Alcohol: Daily
Drug: None
Personal:
Living: With Family
Family History
Family History: Reviewed & Not Pertinent
Allergies / Home Medications
Allergies
Allergy/AdvReac Type Severity Reaction Status Date / Time
No Known Allergies Allergy Verified 01/07/24 16:30
Home Medications
�Medication �Instructions �Recorded �Confirmed �Last Taken �Type
levothyroxine 200 mcg tablet 200 mcg PO HS Thyroid 10/08/21 01/07/24 01/06/24 History
pantoprazole 40 mg tablet,delayed 40 mg PO DAILY Gastrointestinal 01/05/22 01/07/24 01/07/24 History
release Issue
dabigatran etexilate 150 mg capsule 150 mg PO BID Blood Clot 01/07/24 01/07/24 Unknown History
Prevention/Tx
losartan 50 mg tablet 50 mg PO DAILY Blood Pressure 01/07/24 01/07/24 01/07/24 History
metoprolol succinate 50 mg 50 mg PO HS Blood Pressure 01/07/24 01/07/24 01/06/24 History
tablet,extended release 24 hr
oxycodone 5 mg tablet 5 mg PO Q6HPRN PRN severe pain 01/07/24 01/07/24 01/07/24 History
tizanidine 2 mg tablet 2 mg PO Q6HPRN PRN muscle spasms 01/07/24 01/07/24 01/07/24 History
Review of Systems
-
Unable to Obtain full review of systems at this time due to: Patient Intubation
Vitals / Labs / Diagnostic Testing
Vital Signs
Temp Pulse Resp BP Pulse Ox
96 F L 96 20 132/91 93
01/08/24 14:00 01/08/24 12:30 01/08/24 12:30 01/07/24 20:00 01/08/24 12:30
Lab Data
01/08/24 10:07
Laboratory Results
01/07/24 01/07/24 01/08/24
15:54 21:54 04:11
PT 16.3 H
INR 1.33
APTT 31.4 30.8
pH 7.32 L 7.39
pCO2 42 39
pO2 119 H 65 L
HCO3 21.6 23.6
O2 Delivery Level
Diagnostic Testing:
Physical Exam
-
HEENT: Normocephalic, Anicteric and Moist Mucous Membranes
Cardiovascular: Regular Rhythm
Respiratory: Clear
GI: Soft, Non Distended and Normal Bowel Sounds
General: Other (Intubated status)
Exam:
Cervical incision appears to be healing well and bishnu are intact. There is no apparent infectious process occurring and no drainage from the wound site.
Assessment
-
Impression:
-Cardiac arrest/Un-shockable rhythm/PEA
-Intubated Status
-Paroxysmal atrial fibrillation
-Aspiration pneumonia
-Hypertension with hypertensive urgency
-Hyperthyroidism
-Alcohol dependence
-History of prostate cancer s/p surgery
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
-Peptic ulcer disease/GERD
-Sleep apnea with history of uvuloplasty
-Former smoker
Plan:
-Cardiac arrest/Un-shockable rhythm/PEA: Stable
EKG conducted on 01/07/2024 showed supraventricular tachycardia, low voltage QRS, incomplete right bundle branch block, left anterior fascicular block, inferior infarct (which was cited on or before 04/04/2022), possible anterior lateral infarct.
Echocardiogram conducted on 01/07/2024 showed normal left ventricular size and function. Ejection fraction 60 to 65%. No left ventricular hypertrophy. There is also a dilated right ventricle and normal systolic function. Mild tricuspid
regurgitation.
Troponins peaked at 0.162 on 01/07/2024 and is currently 0.155 on 01/08/2024. Trending downward
Temperature currently at a 96.2F
Continue with temperature management protocol (increase 0.5 - 1 �C/h over the evening)
CT chest was negative for pulmonary embolism
Continuous EEG conducted on 01/08/2024 showed relatively low amplitude, no clear PDR, no clear seizure activity seen
Appreciate neurology input-they recommended minimizing sedation as tolerated for optimal neuro examination. We also plan to obtain an MRI of the brain in the next few days if mental status does not improve for better visualization of injury.
-Intubated Status: Stable
Intubated and sedated with fentanyl
Will attempt to wean sedation as possible and reevaluate neurological status tomorrow
Pupils sluggishly reactive to light
Has cough/gag reflex with suctioning
Vent settings: 18 breaths/min, 500 mL VT, 5 cm H2O PEEP, 40% oxygen
-Paroxysmal atrial fibrillation: Stable
S/p ablation
Heparin gtt started after neurosurgery assessment cleared him
Pradaxa on hold
[id number] score calculated to be 1
-Aspiration pneumonia: Stable
Chest x-ray conducted on 01/07/2024 showed no evidence of pulmonary embolism. Confluent right lower lobe consolidation likely represents combination of atelectasis and pneumonia. Additional scattered bilateral multifocal pneumonia noted.
Patient currently on Zosyn
-Hypertension with hypertensive urgency: Stable
Currently on nicardipine IV
Levophed discontinued
-Hyperthyroidism: Stable
TSH was low at 0.04 and free T4 was elevated at 2.22 in the emergency department
Follow TSH
-Peptic ulcer disease/GERD
IV Protonix given
DVT prophylaxis-heparin gtt
Ulcer prophylaxis�pantoprazole sodium
FULL CODE STATUS
--- NOTE | 2024-01-08 14:30 | CM ---
CM following re: discharge planning.
Reviewed pt's chart, met with pt. pt's spouse, pt's sister and a brother at bedside.
Pt is a 63 year old male, admitted with primary dx of Cardiac arrest. Per Rounds meeting, pt remains intubated, continue supportive care.
Pt lives with spouse in a 2SH, 2 steps to enter, has 2 supportive children. 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
PCP: Zay Quispe
Pharmacy: [facility].
D/C plan: uncertain at this time and will depend on pt's progress.
CM will follow with discharge plan updates as hospitalization progresses
--- NOTE | 2024-01-08 14:32 | W.PN.CD ---
Today's Communication / Plan
-
- Cooling protocol
- reassess in AM once reversed
- OK to use rectal ASA. No need for dabigatran.
Impression / Plan
-
Cardiac arrest
-CPR started by police then ACLS by EMS, ROSC achieved then lost en route, ACLS resumed in resuscitation room, ROSC achieved after 3 rounds of epinephrine and high-quality CPR
-PEA arrest -no shock given.
-Prior to arrest, he endorsed chest and upper back pain
-Unresponsive and intubated requiring mechanical ventilation and vasopressor support
-Head CT- negative. CT chest -ve for PE.
-ASA 300mg MO given in resuscitation room
-Now cooling - had dilated fixed pupil prior to cooling.
-Recent post op for spinal fusion - 01/03/24.
Abnormal troponin, type unknown
-Expect it to be elevated given CPR
-no concern for ACS
- ECHO showed hyperdynamic LV wall without wall motion abnormalities.
Paroxysmal atrial fibrillation
-Sinus tachycardia on telemetry
-Oral Anticoagulation: Prior to spinal surgery he was on dabigatran 150 mg twice daily
-Per primary oxidized finish plater, there was a possibility of stopping dabigatran altogether given his low [id number] score and successful ablation back in 2021.
-[id number]: Score 1 (HTN) - OK to use rectal ASA. No need for dabigatran.
-DVT prophylaxis as per primary team
Hypertension, medical therapy on hold as he is requiring vasopressor support
Sinus tachycardia, on metoprolol succinate 50 mg in the outpatient setting, note 100 mg caused fatigue
Hypothyroidism on levothyroxine
Prior tonsillar cancer status post resection and XRT
Prior prostate cancer, status post prostatectomy
Former smoker
Physical Exam
Vital Signs/Labs
Vital Signs
Temp Pulse Resp BP Pulse Ox
96 F L 96 20 132/91 93
01/08/24 14:00 01/08/24 12:30 01/08/24 12:30 01/07/24 20:00 01/08/24 12:30
01/07/24 01/08/24 01/09/24
06:59 06:59 06:59
Actual Weight 92.2 kg
01/08/24 10:07
PT 16.3 Sec (11.4-14.6) H 01/07/24 15:54
INR 1.33 01/07/24 15:54
APTT 30.8 Sec (23.4-35.0) 01/08/24 04:11
Magnesium 1.6 mg/dl (1.6-2.3) 01/08/24 10:07
Triglycerides 105 mg/dl (10-149) 01/08/24 04:11
LDL Cholesterol, Calc 91 mg/dl 01/08/24 04:11
VLDL Cholesterol, Calc 21 mg/dl (0-30) 01/08/24 04:11
HDL Cholesterol 43 mg/dl 01/08/24 04:11
Free T4 2.22 ng/dl (0.78-2.19) H 01/07/24 16:56
01/08/24
04:11
Omi-E-Jecvkqhefwu Pept 1930
LAB Results
01/07/24 01/07/24 01/07/24
15:54 16:56 21:54
Troponin I Cancelled 0.035 H* 0.162 H* D
01/08/24
04:11
Troponin I 0.155 H*
Physical Exam
Constitutional: No acute distress and Other (intubated.)
EENT: Moist mucous membranes
Cardiovascular: Rhythm & rate is regular, Pedal edema is absent, JVD pressure is normal and Systolic murmur absent
Respiratory: Wheeze Absent, Crackles Absent and Other (mechanical breath sounds )
GI: Soft and Distention absent
Neuro/Psych: Other (unresponsive and intubated. )
Data Reviewed
-
Date of Service: January 08, 2024
Medical Decision Making: Reviewed Test Results, Independent Historian Assessment and Test Interpretation
EKG: Tracing Personally Visualized and interpreted
Echo: Tracing Personally Visualized and interpreted
X-Ray/CT/US/MRI/NUC/PET: Image Personally Visualized and interpreted
Labs: Labs Reviewed by me
Old Records: Reviewed
Critical Care Time (in minutes): 35
[2024-01-08 14:33] LABS: Glucose - Point of Care 97 mg/dl (70-99)
--- NOTE | 2024-01-08 14:53 | W.PN.UPDATE ---
Addendum entered and electronically signed by Becca Lainez, DO 01/09/24 06:52:
Reviewed through 6:52am, unchanged. Will continue to monitor.
Addendum entered and electronically signed by Becca Lainez, DO 01/08/24 20:41:
Reviewed cEEG trough 8:40pm; unchanged; no seizure noted.
Original Note:
Update Note
Progress Note Update
cEEG Update Note
Reviewed cEEG through 2:53PM; relatively low amplitude, no clear PDR, muscle artifact obscuring aspects of the recording. Of what was visible, no clear seizure activity thus far.
--- NOTE | 2024-01-08 15:38 | CHAP ---
Mr. Caicedo received the Sacrament of the Sick from Fr. Segura this afternoon at the family's request.
[2024-01-08] MEDS: THIAMINE INJECTION 200 MG IV (15:58)
[2024-01-08 16:06] LABS: Glucose - Point of Care 85 mg/dl (70-99)
[2024-01-08 16:19] LABS: Hematocrit 34.9 % (39.0-52.0); Hemoglobin 12.7 g/dL (13.0-18.0); Mean Corp Hgb Conc. 36.4 g/dL (33.0-37.0); Mean Corpuscular Hgb 32.8 pg (27.0-31.0); Mean Corpuscular Volume 90.2 fL (80.0-94.0); Mean Platelet Volume 8.8 fL (7.4-10.4); Platelet Count 160 10^3/uL (130-400); Red Blood Cell Count 3.87 10^6/uL (4.70-6.10); Red Cell Dist. Width 12.8 % (11.5-14.5); White Blood Cell Count 9.5 10^3/uL (4.8-10.8)
--- NOTE | 2024-01-08 16:24 | PTCARENOTE ---
Pt assessed.No change in assessment noted.TTM is ongoing.IVF,Insulin ,Fentanyl and Heparin gtts infusing.Pt's family at bedside.Plan of care discussed.
[2024-01-08 16:42] LABS: ALT (SGPT) 26 U/L (0-50); AST (SGOT) 61 U/L (17-59); Albumin 3.2 g/dl (3.5-5.0); Alkaline Phosphatase 108 U/L (38-126); Blood Urea Nitrogen 14 mg/dl (9-20); Calcium 9.1 mg/dl (8.4-10.2); Carbon Dioxide 24 mmol/L (22-30); Chloride 98 mmol/L (98-107); Estimated Creatinine Clearance 118 ml/min; Glucose 103 mg/dl (70-99); Magnesium 1.5 mg/dl (1.6-2.3); Phosphorus 3.1 mg/dl (2.5-4.5); Potassium 3.5 mmol/L (3.5-5.1); Sodium 134 mmol/L (135-145); Total Bilirubin 1.4 mg/dl (0.2-1.3); Total CK 100 U/L (55-170); Total Protein 5.8 g/dl (6.3-8.2); eGFR > 60.00
[2024-01-08 17:02] LABS: Glucose - Point of Care 99 mg/dl (70-99)
[2024-01-08 17:04] LABS: CKMB 4.8 ng/ml (0.0-2.4)
[2024-01-08 17:42] LABS: Glucose - Point of Care 93 mg/dl (70-99)
[2024-01-08 19:52] LABS: Glucose - Point of Care 95 mg/dl (70-99)
[2024-01-08 19:58] LABS: APTT 77.6 Sec (23.4-35.0)
--- NOTE | 2024-01-08 20:00 | PTCARENOTE ---
rec`d pt at 1900. pt unresponsive, pupils equal 3mm.- sluggish. no corneal reflex. weak gag. continuous EEG. upward gaze. q4 neuro checks. TTM continued. ST on monitor. cardene started during shift change per MD parameters of SBP between 140-160.
fent, NS,, Heparin, and insulin. glycemic protocol continued. Left dual luman picc. 18 rt AC and 18 rt FA flushed and patent. rt radial A line zeroed. thick, vazquez screations. intubated. coarse lung sounds. 7.5 @26 vent settings. 18/500/50%/ 5 of
peep/ POX 94%. Rt nare NGT up to LIWS. therm lowry draining parisa urine. pre hospital incision, behind neck. bishnu w/ gauze covering. c/d/i. family at bedside. safe environment maintained.
[2024-01-08 21:46] LABS: Glucose - Point of Care 103 mg/dl (70-99)
[2024-01-08 22:01] LABS: Hemoglobin 12.4 g/dL (13.0-18.0); Mean Corp Hgb Conc. 36.5 g/dL (33.0-37.0); Mean Corpuscular Hgb 31.6 pg (27.0-31.0); Mean Corpuscular Volume 86.5 fL (80.0-94.0); Mean Platelet Volume 9.1 fL (7.4-10.4); Platelet Count 180 10^3/uL (130-400); Red Blood Cell Count 3.93 10^6/uL (4.70-6.10); Red Cell Dist. Width 13.1 % (11.5-14.5); White Blood Cell Count 11.5 10^3/uL (4.8-10.8)
[2024-01-08 22:20] LABS: ALT (SGPT) 25 U/L (0-50); AST (SGOT) 65 U/L (17-59); Albumin 3.4 g/dl (3.5-5.0); Alkaline Phosphatase 109 U/L (38-126); Blood Urea Nitrogen 15 mg/dl (9-20); Calcium 9.2 mg/dl (8.4-10.2); Carbon Dioxide 21 mmol/L (22-30); Chloride 98 mmol/L (98-107); Estimated Creatinine Clearance 118 ml/min; Glucose 102 mg/dl (70-99); Magnesium 1.6 mg/dl (1.6-2.3); Potassium 3.5 mmol/L (3.5-5.1); Sodium 134 mmol/L (135-145); Total Bilirubin 1.4 mg/dl (0.2-1.3); Total CK 82 U/L (55-170); eGFR > 60.00
[2024-01-08 23:17] LABS: CKMB 4.2 ng/ml (0.0-2.4)
[2024-01-08 23:53] LABS: Glucose - Point of Care 99 mg/dl (70-99)
[2024-01-09 00:35] LABS: Glucose - Point of Care 93 mg/dl (70-99)
--- NOTE | 2024-01-09 00:36 | PTCARENOTE ---
hr sustaining high 120s. lopressor ordered. JAVA DEVELOPER and cards aware
[2024-01-09] MEDS: LOPRESSOR 2.5 MG IV ×4 (00:50→12:51)
--- NOTE | 2024-01-09 01:15 | W.PN.UPDATE ---
Update Note
Progress Note Update
01/09/24
0030- Patient heart rate increased sustained 120-130s sinus tachycardia, currently on nicardipine gtt for BP management. Updated kaiako kura kaupapa maori, Dr. Goodwin, recommendations received to initiate 2.5mg IV lopressor q6H scheduled with hold parameters
for heart rate <100. Orders placed, patient responded to lopressor IV HR 100s.
[2024-01-09 01:52] LABS: Glucose - Point of Care 100 mg/dl (70-99)
[2024-01-09] MEDS: ZOSYN 50 IV ×4 (02:07→20:11)
[2024-01-09 02:28] LABS: Hematocrit 33.3 % (39.0-52.0); Hemoglobin 12.4 g/dL (13.0-18.0); Mean Corp Hgb Conc. 37.2 g/dL (33.0-37.0); Mean Corpuscular Hgb 32.2 pg (27.0-31.0); Mean Corpuscular Volume 86.5 fL (80.0-94.0); Mean Platelet Volume 9.4 fL (7.4-10.4); Platelet Count 193 10^3/uL (130-400); Red Blood Cell Count 3.85 10^6/uL (4.70-6.10); Red Cell Dist. Width 13.2 % (11.5-14.5); White Blood Cell Count 12.2 10^3/uL (4.8-10.8)
[2024-01-09 02:40] LABS: Lactic Acid 1.5 mmol/L (0.7-2.0)
[2024-01-09 02:42] LABS: APTT 72.6 Sec (23.4-35.0)
[2024-01-09 02:48] LABS: ALT (SGPT) 25 U/L (0-50); AST (SGOT) 66 U/L (17-59); Albumin 3.3 g/dl (3.5-5.0); Alkaline Phosphatase 111 U/L (38-126); Blood Urea Nitrogen 16 mg/dl (9-20); Calcium 9.3 mg/dl (8.4-10.2); Carbon Dioxide 23 mmol/L (22-30); Chloride 99 mmol/L (98-107); Estimated Creatinine Clearance 118 ml/min; Glucose 99 mg/dl (70-99); Magnesium 1.5 mg/dl (1.6-2.3); Potassium 3.5 mmol/L (3.5-5.1); Sodium 136 mmol/L (135-145); Total Bilirubin 1.2 mg/dl (0.2-1.3); Total Protein 5.9 g/dl (6.3-8.2); eGFR > 60.00
[2024-01-09 02:50] LABS: Glucose - Point of Care 104 mg/dl (70-99)
[2024-01-09] MEDS: SUBLIMAZE 50 MCG IV ×4 (03:31→22:57)
[2024-01-09 03:48] LABS: Glucose - Point of Care 94 mg/dl (70-99)
[2024-01-09] MEDS: TYLENOL ORAL SOLUTION 650 MG TUBE ×3 (04:30→21:46)
[2024-01-09] MEDS: BUSPAR 30 MG TUBE (04:30)
[2024-01-09] MEDS: SUBLIMAZE 100 IV (04:47)
[2024-01-09 05:07] LABS: Glucose - Point of Care 102 mg/dl (70-99)
[2024-01-09 05:24] VITALS: BMI 28.8
[2024-01-09 05:24] LABS: B.E. -1.4 mmol/L; HCO3 22.8 mmol/L (21-28); O2 Saturation % 97.3 % (94-98); PCO2 36 mmHg (35-48); PO2 85 mmHg (83-108); pH 7.41 (7.35-7.45)
[2024-01-09 05:27] LABS: Hematocrit 35.3 % (39.0-52.0); Hemoglobin 12.7 g/dL (13.0-18.0); Mean Corpuscular Hgb 32.4 pg (27.0-31.0); Mean Corpuscular Volume 90.1 fL (80.0-94.0); Mean Platelet Volume 9.5 fL (7.4-10.4); Platelet Count 197 10^3/uL (130-400); Red Blood Cell Count 3.92 10^6/uL (4.70-6.10); White Blood Cell Count 13.6 10^3/uL (4.8-10.8)
[2024-01-09 05:30] LABS: Lactic Acid 1.6 mmol/L (0.7-2.0)
[2024-01-09 05:31] LABS: APTT 70.9 Sec (23.4-35.0)
[2024-01-09 05:38] LABS: Prealbumin (Transthyretin) 7.2 mg/dl (17.6-36.0)
[2024-01-09 05:41] LABS: NT-proBNP 850 pg/ml
[2024-01-09 05:48] LABS: ALT (SGPT) 24 U/L (0-50); AST (SGOT) 66 U/L (17-59); Albumin 3.3 g/dl (3.5-5.0); Alkaline Phosphatase 111 U/L (38-126); Blood Urea Nitrogen 17 mg/dl (9-20); Calcium 9.1 mg/dl (8.4-10.2); Carbon Dioxide 21 mmol/L (22-30); Chloride 100 mmol/L (98-107); Creatine Phosphokinase 60 U/L (55-170); Estimated Creatinine Clearance 118 ml/min; Glucose 106 mg/dl (70-99); Magnesium 1.6 mg/dl (1.6-2.3); Potassium 3.6 mmol/L (3.5-5.1); Sodium 137 mmol/L (135-145); Total Bilirubin 1.2 mg/dl (0.2-1.3); Total Protein 5.9 g/dl (6.3-8.2); eGFR > 60.00
[2024-01-09] MEDS: MAGNESIUM SULFATE 50 IV (05:55)
[2024-01-09] MEDS: KCL 270 MEQ IV (06:00)
[2024-01-09 06:07] LABS: Absolute Neutrophils -Man Diff 11.4 10^3/uL (1.4-6.5); Band Neutrophils 11 % (0-3); Lymphocytes 10 % (20-51); Monocytes 4 % (2-9); Segmented Neutrophils 73 % (42-75)
[2024-01-09 06:08] LABS: Eosinophils 2 % (0-6); Normal RBC Morphology Yes; Platelets Checked Yes; Total Cells Counted 100
[2024-01-09 07:17] LABS: Glucose - Point of Care 121 mg/dl (70-99)
--- NOTE | 2024-01-09 07:29 | W.PN.CD ---
Today's Communication / Plan
-
- BP control with Nicardipine and Metoprolol
- Neuro assessment off the sedation
Impression / Plan
-
Cardiac arrest
-cardiac arrest at home - unclear down tome.
-CPR started by police then ACLS by EMS, ROSC achieved then lost en route, ACLS resumed in resuscitation room, ROSC achieved after 3 rounds of epinephrine and high-quality CPR
-PEA arrest -no shock given. 01/07/24
-Prior to arrest, he endorsed chest and upper back pain
-Unresponsive and intubated requiring mechanical ventilation and vasopressor support
-Head CT- negative. CT chest -ve for PE.
-ASA 300mg NH given in resuscitation room
-s/p cooling - had dilated fixed pupil prior to cooling.
-Recent post op for spinal fusion - 01/03/24.
-now warmed and has been on fentanyl. Off the sedation and narcotics then assess mental functions. Follow neuro assessment.
-Video EEG has no seizure activity.
-Now sinus tachycardia - Heart rate is elevated - Metoprolol 2.5 mg q6 hr - can increase as needed.
-Also hypertensive and started nicardipine drip. labile BP with fluctuations.
Abnormal troponin, type unknown
-Expect it to be elevated given CPR
-no concern for ACS
-ECHO showed hyperdynamic LV wall without wall motion abnormalities.
Paroxysmal atrial fibrillation
-Sinus tachycardia on telemetry
-Oral Anticoagulation: Prior to spinal surgery he was on dabigatran 150 mg twice daily
-Per primary eyelet machine operator, there was a possibility of stopping dabigatran altogether given his low [id number] score and successful ablation back in 2021.
-[id number]: Score 1 (HTN) - OK to use rectal ASA. No need for dabigatran.
-DVT prophylaxis as per primary team - On Heparin drip.
Hypomagnesemia
- With tachycardia noted now, goal is to keep Mg > 2.0 and Kk > 4.0 (Cr is 0.7)
- Replace and recheck.
Hypertension,
-Nicardipine drip - on and off
-Metoprolol 2.5 mg q6h
-Based on brain activity, can consider tube and tube feeds with meds.
Sinus tachycardia, on metoprolol succinate 50 mg in the outpatient setting, note 100 mg caused fatigue
Hypothyroidism on levothyroxine
Prior tonsillar cancer status post resection and XRT
Prior prostate cancer, status post prostatectomy
Former smoker
Physical Exam
Vital Signs/Labs
Vital Signs
Temp Pulse Resp BP Pulse Ox
97.8 F 111 28 132/91 94
01/09/24 06:00 01/09/24 04:30 01/09/24 04:30 01/07/24 20:00 01/09/24 04:30
01/08/24 01/09/24 01/10/24
06:59 06:59 06:59
Actual Weight 92.2 kg 93.5 kg
PT 16.3 Sec (11.4-14.6) H 01/07/24 15:54
INR 1.33 01/07/24 15:54
APTT 70.9 Sec (23.4-35.0) H 01/09/24 05:07
Magnesium 1.6 mg/dl (1.6-2.3) 01/09/24 05:07
Triglycerides 105 mg/dl (10-149) 01/08/24 04:11
LDL Cholesterol, Calc 91 mg/dl 01/08/24 04:11
VLDL Cholesterol, Calc 21 mg/dl (0-30) 01/08/24 04:11
HDL Cholesterol 43 mg/dl 01/08/24 04:11
Free T4 2.22 ng/dl (0.78-2.19) H 01/07/24 16:56
01/08/24 01/09/24
04:11 05:07
Lct-E-Zmpurtsnsnp Pept 1930 850
LAB Results
01/07/24 01/07/24 01/07/24
15:54 16:56 21:54
Troponin I Cancelled 0.035 H* 0.162 H* D
01/08/24
04:11
Troponin I 0.155 H*
Physical Exam
Constitutional: No acute distress and Comfortable
EENT: Anicteric and Moist mucous membranes
Cardiovascular: Rhythm & rate is regular, Pedal edema is absent, JVD pressure is normal and Systolic murmur absent
Respiratory: Respiratory effort normal and Lungs clear to auscul.
GI: Soft, Non tender and Normal bowel sounds
Neuro/Psych: Alert, Oriented and AO x 3
Data Reviewed
-
Date of Service: January 09, 2024
Medical Decision Making: Reviewed Test Results, Independent Historian Assessment, Test Interpretation and Review of Case with other Provider
EKG: Tracing Personally Visualized and interpreted
Echo: Report Reviewed by me
Labs: Labs Reviewed by me
Old Records: Reviewed
Critical Care Time (in minutes): 32
--- NOTE | 2024-01-09 08:00 | PTCARENOTE ---
Received pt unresponsive to verbal or noxious stimuli.Pupils sluggishly reactive 3mm.No corneal,gag or cough reflex noted.Neurology BREAKER ENGINEER at bedside.24 hour EEG ongoing.ST noted.Normothermia TTM ongoing.IVF,Insulin,Fentanyl and Heparin gtts
infusing.Left PICC intact.Right radial A Line intact,zeroed and at mid axillary.+ sclera edema noted.# 7.5 ETT intact to vent.Scattered rhonchi auscultated throughout.suctioned for scant vazquez thick secretions.POX 97%[place] intact to suction.No
BM.Hall draining parisa urine.Pts and extended family at bedside.Plan of care discussed.
[2024-01-09] MEDS: THIAMINE INJECTION 200 MG IV (08:15)
[2024-01-09] MEDS: ASPIRIN 300 MG RECTAL (08:15)
[2024-01-09] MEDS: REFRESH CELLUVISC GEL 1 DROPS BOTH EYES ×2 (08:16→20:11)
[2024-01-09] MEDS: PROTONIX IV 40 MG IV (08:16)
--- NOTE | 2024-01-09 08:23 | EEGC.RPT ---
Continuous EEG Report
Recording
Start Date of Data Reviewed: 01/08/24
Start Time of Data Reviewed: 13:43
End Date of Data Reviewed: 01/09/24
End Time of Data Reviewed: 07:00
Type of EEG: Continuous
Done with Video Recording: Yes
Study Sequence: Initiation of Study
Report
METHODS
A 21 channel digitized electroencephalogram was performed at [facility]. The 10/20 international system of electrode placement was used. In addition to EEG, the patient was monitored for EKG. The duration of the recording was 17 hours and
17 mins
BACKGROUND
The background consisted of relatively low amplitude activity, no clear posterior dominant rhythm, little variability and muscle artifact obscuring aspects of the recording. Of what was visible, no clear seizure activity was seen.
PHOTIC STIMULATION
Photic stimulation was not performed.
CLINICAL EVENTS
None
INTERPRETATION AND CLINICAL CORRELATION
This EEG is abnormal due to the presence of relatively low amplitude activity, no clear posterior dominant rhythm, little variability and muscle artifact obscuring aspects of the recording. Of what was visible, no clear seizure activity was seen.
The study is consistent with severe diffuse cerebral dysfunction, nonspecific in etiology.
--- NOTE | 2024-01-09 08:24 | W.PN.NEURO.1 ---
Addendum entered and electronically signed by Becca Lainez DO 01/09/24 15:38:
I have personally examined the patient. I agree with the NEUROLOGY MANAGER's Note.
My addenda:
63 year-old male with anoxic brain injury s/p cardiac arrest.
Agree with exam as documented.
Repeat HCT showed:
Findings consistent with diffuse cytotoxic edema reflecting hypoxic-ischemic encephalopathy, with supratentorial and infratentorial brain swelling. Mass effect results in cerebral sulcal effacement, as well as effacement of posterior fossa cisterns.
There is also mass effect compressing the aqueduct of Sylvius and fourth ventricle, with secondary mild hydrocephalus having developed. No katt herniation identified. No midline shift.
Accentuated hyper density of the falx and tentorium, as described, likely the result of diffuse brain hypodensity. This also likely contributes to appearance suggesting slight uniform thickening in the appearance of the tentorium. The possibility of
diffuse uniform subdural hematoma along the tentorium is felt to be less likely; this may be assessed on follow-up imaging.
Hypertonic saline started.
Continuous EEG has shown no clear epileptiform abnormalities, low amplitude findings without a clear posterior dominant rhythm. No seizures noted.
Family considering comfort care/organ donation.
Prognosis for good functional neurological recovery is poor based on HCT, exam findings.
Repeat HCT later tonight given ?subdural (although felt to be less likely) depending upon goals of care plan
Minimize sedation as able.
Will c/t follow.
Original Note:
Today's Communication / Plan
-
.
Neuro Assessment/Plan
Assessment
63 year-old male with cardiac, completed TTM. [place] was approximately 10 mins. 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
-CT Head 01/09/24: pending
-Continuous EEG 01/09/24: This EEG is abnormal due to the presence of relatively low amplitude activity, no clear posterior dominant rhythm, little variability and muscle artifact obscuring aspects of the recording. Of what was visible, no clear
seizure activity was seen. The study is consistent with severe diffuse cerebral dysfunction, nonspecific in etiology.
I. Cardiac arrest x2, unclear total downtime.
II. Recent C2-C5 hardware repair/laminectomy..
Plan
-Current neurological exam is very poor.
-Plan to obtain MRI brain noncontrast in the next few days for better visualization of injury if patient does not progress to brain before then.
-Heparin drip, resume OAC when able.
-Neurological checks per unit guidelines.
-Minimize sedation as tolerated for optimal neuro examination.
-DVT prophylaxis.
Subjective/Objective
Subjective Data
Date of Service: January 09, 2024
No acute events overnight. Patient remains intubated requiring low dose fentanyl sedation.
Objective Data
Vital Signs
Temp Pulse Resp BP Pulse Ox
96.3 F L 111 28 132/91 95
01/09/24 07:30 01/09/24 04:30 01/09/24 04:30 01/07/24 20:00 01/09/24 07:49
PT 16.3 Sec (11.4-14.6) H 01/07/24 15:54
INR 1.33 01/07/24 15:54
APTT 70.9 Sec (23.4-35.0) H 01/09/24 05:07
Sodium 137 mmol/L (135-145) 01/09/24 05:07
Potassium 3.6 mmol/L (3.5-5.1) 01/09/24 05:07
BUN 17 mg/dl (9-20) 01/09/24 05:07
Glucose 106 mg/dl (70-99) H 01/09/24 05:07
Calcium 9.1 mg/dl (8.4-10.2) 01/09/24 05:07
Phosphorus 3.0 mg/dl (2.5-4.5) 01/09/24 02:03
Sri-H-Qbklsfoxcnf Pept 850 pg/ml 01/09/24 05:07
LDL Cholesterol, Calc 91 mg/dl 01/08/24 04:11
Patient Allergies
No Known Allergies Allergy (Verified 01/07/24 16:30)
Physical Exam
-
General: Intubated
Eyes: PERRLA (sluggish)
HEENT: Normocephalic and Atraumatic
Respiratory: Other (intubated)
GI: Non-distended
Extremities: No Clubbing, No Cyanosis and No Edema
Psych: Unable to Assess
Extended Neurological Exam
Mood & Affect: Unable to Assess
Attention Span & Concentration: Unresponsive to Verbal Stimuli and Unresponsive to Physical Stimuli
Memory: Unable to Assess
Tremor: Head Tremor Absent; Negative Hand Tremor Absent (intermittent right thumb movement, none rhythmic)
Speech: Unable to Assess
Cranial Nerve II: Left Eye: Pupillary Size Unremarkable and Unable to Assess Visual Gonzalez; Negative Pupillary Reactivity Unremarkable (sluggish)
Cranial Nerve II: Right Eye: Pupillary Size Unremarkable and Unable to Assess Visual Gonzalez; Negative Pupillary Reactivity Unremarkable (sluggish)
Cranial Nerves III, IV, : Extraocular Movement: Unable to Assess (gaze midline, negative dolls eyes)
Cranial Nerve V: Facial Sensation: Unable to Assess
Cranial Nerve VII: Facial Symmetry: Unable to Assess
Cranial Nerve VIII: Hearing: Unable to Assess
Cranial Nerves IX, X: Palate Movement: Unable to Assess
Cranial Nerve XI: Shoulder Shrug: Unable to Assess
Cranial Nerve XII: Tongue Protusion: Unable to Assess
Muscle Strength, Overall: Absent (0/5 all extremities to pain); Negative Spontaneously Moves
Muscle Bulk & Tone: Reduced Tone
Pronator Drift: Unable to Assess
Deep Tendon Reflexes: Absent Throughout
Cold Sensation: Unable to Assess
Vibration Sensation: Unable to Assess
Touch Sensation: Unable to Assess
Coordination: Unable to Assess
Babinski Sign: Present on Right
Gait & Station: Unable to Assess
Data Reviewed
-
CT Head: Pending
EEG: Report Reviewed
Labs: Report Reviewed
Reviewed with: Physician and Nurse
Medications
-
Active Medications
Generic Name Dose Route Start Last Admin
Trade Name Freq PRN Reason Stop Dose Admin
Acetaminophen 650 mg 01/07/24 19:41
Acetaminophen 650 Mg Rectal Suppository RECTAL 02/04/24 19:40
Q4HPRN PRN
if unable to give via TUBE
Acetaminophen 650 mg 01/07/24 22:00 01/09/24 04:30
Acetaminophen (Oral Solution) 650 Mg/20.3 Ml Cup TUBE 02/04/24 21:59 650 mg
Q6H MARISOL Administration
Aspirin 300 mg 01/08/24 08:00 01/09/24 08:15
Aspirin 300 Mg Rectal Suppository RECTAL 02/05/24 07:59 300 mg
DAILY MARISOL Administration
Carboxymethylcellulose Sodium 1 drops 01/07/24 20:00 01/09/24 08:16
Carboxymethylcellulose Ophth Gel (Celluvisc) Droperette BOTH EYES 02/04/24 19:59 1 drops
BID MARISOL Administration
Fentanyl Citrate 50 mcg 01/07/24 19:41 01/09/24 04:45
Fentanyl (50 Mcg/Ml) 100 Mcg/2 Ml Ampul IV 01/21/24 19:40 50 mcg
[id number] PRN Administration
see protocol
Protocol
Fentanyl Citrate 100 mcg 01/09/24 12:27
Fentanyl (50 Mcg/Ml) 100 Mcg/2 Ml Ampul IV 01/09/24 12:28
NOW STA
Piperacillin Sod/Tazobactam Sod 3.375 gram in 50 mls @ 100 mls/hr 01/07/24 20:00 01/09/24 08:15
Zosyn IV 50 mls
Q6H MARISOL Administration
Heparin Sodium 25,000 units in 250 mls @ 0 mls/hr 01/07/24 19:15 01/08/24 13:10
Heparin 65071 Units/250 Ml IV 250 mls
PER PROTOCOL MARISOL Administration
Protocol
Per Protocol
Sodium Chloride 1,000 mls @ 80 mls/hr 01/07/24 19:41 01/09/24 09:47
Nss IV 1,000 mls
[id number] MARISOL Administration
Nicardipine/Sodium Chloride 40 mg in 200 mls @ 0 mls/hr 01/08/24 03:00 01/08/24 19:00
Cardene IV 200 mls
PER PROTOCOL MARISOL Administration
Protocol
Per Protocol
Propofol 1,000,000 mcg in 100 mls @ 0 mls/hr 01/09/24 12:30
Diprivan IV
PER PROTOCOL MARISOL
Protocol
Per Protocol
Insulin Aspart 0 units 01/09/24 12:00
Insulin Aspart Moderate Resistance 300 Units/3 Ml Pen.Injctr SC 02/06/24 11:59
Q6 MARISOL
Protocol
Metoprolol Tartrate 2.5 mg 01/09/24 00:34 01/09/24 04:27
Metoprolol 5 Mg/5 Ml Vial IV 02/06/24 00:33 2.5 mg
Q6 MARISOL Administration
Pantoprazole Sodium 40 mg 01/08/24 08:00 01/09/24 08:16
Pantoprazole Sodium 40 Mg/10 Ml Vial IV 02/05/24 07:59 40 mg
DAILY MARISOL Administration
Sodium Chloride 0 flush 01/07/24 20:00
Sodium Chloride 0.9% (Flush) Syringe IV 02/04/24 19:59
PER PROTOCOL MARISOL
Thiamine HCl 200 mg 01/08/24 14:00 01/09/24 08:15
Thiamine (100 Mg/Ml) 2 Ml Vial IV 02/05/24 13:59 200 mg
DAILY MARISOL Administration
Home Medications
�Medication �Instructions �Recorded
levothyroxine 200 mcg tablet 200 mcg PO HS Thyroid 10/08/21
pantoprazole 40 mg tablet,delayed 40 mg PO DAILY Gastrointestinal 01/05/22
release Issue
dabigatran etexilate 150 mg capsule 150 mg PO BID Blood Clot 01/07/24
Prevention/Tx
losartan 50 mg tablet 50 mg PO DAILY Blood Pressure 01/07/24
metoprolol succinate 50 mg 50 mg PO HS Blood Pressure 01/07/24
tablet,extended release 24 hr
oxycodone 5 mg tablet 5 mg PO Q6HPRN PRN severe pain 01/07/24
tizanidine 2 mg tablet 2 mg PO Q6HPRN PRN muscle spasms 01/07/24
--- NOTE | 2024-01-09 08:51 | PN.DE.MGMTRT ---
Insulin Management
- -
01/08/2024 Diabetes Management Consult
Patient admitted 01/06 s/p cardiac arrest at home. PMH afib, hypothyroid, HTN, ETOH use, GI bleed, tonsillar CA 20 years ago, prostate CA. Last had laminectomy for c-spine involvement of tonsillar CA. No HX of diabetes. A1C 5.3%, cr .8,
eGFR > 60.
Glycemic protocol continued overnight, required .4 to 1.2 units of insulin per hour. Insulin infusion stopped this AM.
Diabetes History
- -
Pre-Admission Diabetes Regimen
01/08/24 01/08/24 01/08/24
10:07 16:11 21:53
Creatinine 0.7 0.7 0.7
01/09/24 01/09/24
02:03 05:07
Creatinine 0.7 0.7
Lab Results
Hemoglobin A1c 5.3 % (4.0-5.6) 01/07/24 21:54
Insulin Pump Settings
IP Diabetes Regimen
01/08/24 01/08/24 01/08/24
09:46 10:07 11:56
Glucose 129 H
POC Glucose 120 H 88
01/08/24 01/08/24 01/08/24
13:26 14:22 15:55
Glucose
POC Glucose 79 97 85
01/08/24 01/08/24 01/08/24
16:11 16:51 17:30
Glucose 103 H
POC Glucose 99 93
01/08/24 01/08/24 01/08/24
19:38 21:34 21:53
Glucose 102 H
POC Glucose 95 103 H
01/08/24 01/09/24 01/09/24
23:41 00:23 01:41
Glucose
POC Glucose 99 93 100 H
01/09/24 01/09/2424
02:03 02:37 03:36
Glucose 99
POC Glucose 104 H 94
01/09/24 01/09/24 01/09/24
04:55 05:07 07:05
Glucose 106 H
POC Glucose 102 H 121 H
Patient Education
--- NOTE | 2024-01-09 09:00 | PTCARENOTE ---
Fentanyl weaned off to limit sedation for neuro exam.
[2024-01-09 09:30] LABS: Glucose - Point of Care 90 mg/dl (70-99)
[2024-01-09 09:32] LABS: Hematocrit 33.9 % (39.0-52.0); Hemoglobin 12.1 g/dL (13.0-18.0); Mean Corp Hgb Conc. 35.7 g/dL (33.0-37.0); Mean Corpuscular Hgb 32.3 pg (27.0-31.0); Mean Corpuscular Volume 90.4 fL (80.0-94.0); Mean Platelet Volume 9.3 fL (7.4-10.4); Platelet Count 182 10^3/uL (130-400); Red Blood Cell Count 3.75 10^6/uL (4.70-6.10); White Blood Cell Count 12.7 10^3/uL (4.8-10.8)
[2024-01-09 09:34] LABS: APTT 88.5 Sec (23.4-35.0)
--- NOTE | 2024-01-09 09:35 | W.PN.HOSP.TC ---
Today's Communication/Plan
-
head CT, serial labs, repeat neuro exam
Assessment / Plan
Assessment / Plan
63yo M with PHM s/p revision cervical surgery on 01/03/[address] ([address] 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
2021, HTN who presented from home to ED [facility] for cardiac arrest 01/06. Per record review, he was recently discharged from [facility] following spinal surgery. Yesterday at home he reported chest/back pain and his found him unresponsive. ACLS by
EMS with ROSC en route to hospital. In ED, found to be in PEA and bicarb x2, calcium, epi x3 administered with continued ACLS, no shocks. ROSC achieved and levophed drip started (now off).
#Cardiac arrest
#PEA
#hypertension
- Unclear etiology, possibly cardiac arrhythmia. Unclear downtime, per previous documentation about 10 minutes.
- On admission, Chest CT w IV contrast negative for PE. Head CT negative for intracranial hemorrhage
- Echo 01/06: EF 60-65%, no regional wall motion abnormalities
- BNP 1930, troponin 0.35 --> 0.162 --> 0.155
- Remains intubated. Continue mechanical ventilation per respiratory
- Not on pressors. Cardene intermittently on overnight due to elevated BPs. Continue monitoring BP via A line with systolic BP goal 140-160.
- Hall in situ, clear yellow urine. Adequate UOP, 71mL/kg/hr over past few hours. Continue to monitor I&Os.
- Previously on cooling protocol (initiated at 01/06). Gradual rewarming began at 01/07
- Continue serial CMP, CBC
- Continue IVF, insulin protocol, electrolyte supplementation, rectal aspirin, heparin
- Fentanyl sedation recently discontinued this AM, will need to repeat neuro exam.
- Cardiology following. Continue BP control with cardene and metoprolol.
- Neuro following. EEG consistent with severe diffuse cerebral dysfunction
- Given EEG findings and decreased reflexes on physical exam (weak cough yesterday, no cough today with deep suctioning) despite rewarming, no clinical improvement. Will get repeat head CT. Need to repeat neurologic exam when effects of fentanyl
sedation are off.
#paroxysmal afib s/p ablation, PVI 2021
#sinus tachycardia
- Dabigatran reportedly held for about 5 days prior to surgery
- Hold dabigatron
- HR 115 this AM
- Continue to monitor
#Aspiration pneumonia
- Continue zosyn
#Tonsillar cancer s/p radiation and tonsillectomy 2006
#Cervical myelopathy
#S/p C2-C5 laminectomy 07/2023
#Cervical hardware failure, kyphotic deformity, listhesis
#S/p revision cervical surgery with C2-T2 fusion 01/03/24
#KATTY
- Suspect secondary to poor renal perfusion during cardiac arrest
- Cr 1.4 on admission --> 0.7 today
#Daily alcohol use
- Monitor for signs/symptoms of alcohol withdrawal
- Supplement thiamine
#peptic ulcer disease/GERD
#H/o GI bleed
- IV protonix
#Hypothyroidism
- Continue home levothyroxine 200mcg
- TSH 0.04 low, T4 2.22 high. Recheck TSH when stable
#H/o prostate cancer s/p prostatectomy
#Sleep apnea
#s/p uvuloplasty
Code status: full
VTE ppx: heparin
Diet: NPO
Dispo planning: TBD
Anticipated Discharge: > 48 hours
Subjective/Interval History
-
Date of Service: January 09, 2024
Overnight, rewarming protocol was started at 2218 01/08/24. ETT was repositioned secondary to suspected leak. Cardene drip was intermittently on due to elevated BPs. Fentanyl sedation discontinued this AM.
His oldest brother is at bedside. He came from out of town to be at .
Objective Data
-
Labs:
Laboratory Results
01/08/24 01/09/24 01/09/24
21:53 02:03 05:07
WBC 11.5 H 12.2 H 13.6 H
Hgb 12.4 L 12.4 L 12.7 L
Hct 34.0 L 33.3 L 35.3 L
Plt Count 180 193 197
APTT 72.6 H 70.9 H
HCO3 22.8
Sodium 134 L 136 137
Potassium 3.5 3.5 3.6
Chloride 98 99 100
Carbon Dioxide 21 L 23 21 L
BUN 15 16 17
Creatinine 0.7 0.7 0.7
Glucose 102 H 99 106 H
Calcium 9.2 9.3 9.1
Total Bilirubin 1.4 H 1.2 1.2
AST 65 H 66 H 66 H
ALT 25 25 24
Alkaline Phosphatase 109 111 111
01/09/24 01/09/24 01/09/24
09:12 09:12 09:12
WBC Pending 12.7 H
Hgb Pending 12.1 L
Hct Pending
Plt Count
APTT
HCO3
Sodium
Potassium
Chloride
Carbon Dioxide
BUN
Creatinine
Glucose
Calcium
Total Bilirubin
AST
ALT
Alkaline Phosphatase
01/09/24 01/09/24 01/09/24
09:12 09:12 09:12
WBC
Hgb
Hct 33.9 L
Plt Count Pending 182
APTT Pending
HCO3
Sodium Pending Pending
Potassium Pending
Chloride
Carbon Dioxide
BUN
Creatinine
Glucose
Calcium
Total Bilirubin
AST
ALT
Alkaline Phosphatase
01/09/24 01/09/24 01/09/24
09:12 09:12 09:12
WBC
Hgb
Hct
Plt Count
APTT
HCO3
Sodium
Potassium Pending
Chloride Pending Pending
Carbon Dioxide Pending Pending
BUN Pending
Creatinine
Glucose
Calcium
Total Bilirubin
AST
ALT
Alkaline Phosphatase
01/09/24 01/09/24 01/09/24
:12 09:12 09:12
WBC
Hgb
Hct
Plt Count
APTT
HCO3
Sodium
Potassium
Chloride
Carbon Dioxide
BUN Pending
Creatinine Pending Pending
Glucose Pending Pending
Calcium Pending
Total Bilirubin
AST
ALT
Alkaline Phosphatase
01/09/24 01/09/24 01/09/24
:12 09:12 09:12
WBC
Hgb
Hct
Plt Count
APTT
HCO3
Sodium
Potassium
Chloride
Carbon Dioxide
BUN
Creatinine
Glucose
Calcium Pending
Total Bilirubin Pending Pending
AST Pending Pending
ALT Pending
Alkaline Phosphatase
01/09/24 01/09/24 01/09/24
09:12 09:12 18:00
WBC Pending
Hgb Pending
Hct Pending
Plt Count Pending
APTT
HCO3
Sodium Pending
Potassium Pending
Chloride Pending
Carbon Dioxide Pending
BUN Pending
Creatinine Pending
Glucose Pending
Calcium Pending
Total Bilirubin Pending
AST Pending
ALT Pending Pending
Alkaline Phosphatase Pending Pending Pending
01/09/24
22:00
WBC Pending
Hgb Pending
Hct Pending
Plt Count Pending
APTT
HCO3
Sodium Pending
Potassium Pending
Chloride Pending
Carbon Dioxide Pending
BUN Pending
Creatinine Pending
Glucose Pending
Calcium Pending
Total Bilirubin Pending
AST Pending
ALT Pending
Alkaline Phosphatase Pending
Vital Signs:
Vital Signs
Temp Pulse Resp BP Pulse Ox
96.3 F L 111 28 132/91 95
01/09/24 07:30 01/09/24 04:30 01/09/24 04:30 01/07/24 20:00 01/09/24 07:49
I&O
01/08/24 01/09/24 01/10/24
06:59 06:59 06:59
Intake Total 1016.9 / 1108.7 2203.9 / 2203.9
Output Total 1485 / 1515 1800 / 1800
Balance -468.1 / -406.3 403.9 / 403.9
Review of Systems
-
Unable to obtain full review of systems at this time due to: Patient Intubation
Physical Exam
-
General: Intubated
HEENT: Normocephalic, Atraumatic, Anicteric, Dennard Conjunctivae and Other (pupils equal 3mm unresponsive to light; absent corneal reflex)
Respiratory: Rhonchi and Other (intubated AC set rate 18, vol 500, 50% +5; +spontaneous breaths, RR 27)
Cardiac: Regular Rhythm, S1/S2 and Tachycardic
GI: Soft and Nondistended
Genito-urinary: Clear Urine and Hall
Musculoskeletal: No Cyanosis and Other (+1 pitting edema bilateral lower extremities symmetric)
Skin: Dry and IV Access / Catheter Site (L arm PICC, R A line)
Neuro: Other (no cough or gag reflex with deep suctioning; absent corneal reflex, unresponsive to painful stimuli); Negative Awake
Data Reviewed
-
Medical Tests (Nuc Med, Echo etc): Report Reviewed by me and Discussed with Physician
Labs: Labs Reviewed by me and Discussed with Physician
[2024-01-09] MEDS: NSS 1000 IV ×2 (09:47→21:36)
[2024-01-09 10:24] LABS: Lactic Acid 1.5 mmol/L (0.7-2.0)
[2024-01-09 11:05] VITALS: BMI 28.8
[2024-01-09 11:13] LABS: Phosphorus 2.6 mg/dl (2.5-4.5)
--- NOTE | 2024-01-09 11:30 | PTCARENOTE ---
EEG leads removed as per MD order.Pt transported to CT via bed.
--- NOTE | 2024-01-09 12:30 | PTCARENOTE ---
Returned from CT scan.ST and elevated BP noted.Tachypnea and increased PIPs noted.Dr Neal at bedside.Fentanyl bolus and Labetalol given as ordered.Propofol initiated as ordered.Pt assessed.No change in neuro assessment noted.
[2024-01-09] MEDS: TRANDATE 10 MG IV (12:37)
[2024-01-09] MEDS: SUBLIMAZE 100 MCG IV (12:38)
[2024-01-09] MEDS: HEPARIN 25000 UNITS/250 ML IV (12:40)
[2024-01-09] MEDS: DIPRIVAN 100 IV (12:46)
--- NOTE | 2024-01-09 12:46 | W.PN.UPDATE ---
Addendum entered and electronically signed by Preston Jackson MD 01/09/24 16:26:
Head CT reviewed by me- Edema noted- Pt received Mannitol.
Poor prognosis
D/W Sanding Supervisor, He reviewed with family.
Original Note:
Update Note
Progress Note Update
63-year-old male presented with cardiac arrest. History obtained from alternate source other providers/medical records. 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 He is
followed by Dr. Robles. He had C2- C5 Laminectomy Dr. Spears at [facility] [place] in July 2023. September 2023 he had tripped and fell. He was wearing a collar at that time. 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 He underwent a revision of the surgery on 01/03/2024. He was on Pradaxa which was on hold after surgery. Yesterday he had some pain in the back and a cough yesterday he took oxycodone and
Zanaflex and lay down. returned shortly and found him unresponsive she called 911. He received 1 round of epinephrine and CPR. ROSC was obtained. En route he became pulseless and received another 3 A of epinephrine and 2 A of bicarb and
calcium with ROSC again. He was intubated/enroute he was in PEA on arrival to the ER.
Seen in the ICU earlier today. Late documentation.
Intubated
Off sedation
Pupils not reactive
No corneal reflex
No cough prophylax with suctioning
Cardiovascular system S1-S2 appreciated
Chest clear to auscultation
Abdomen soft and nontender
# Cardiac arrest-Un shockable rhythm-PEA Arrest
Prehospital EKG with ST depressions. Echo-normal LV size and function. EF 60 to 65%. No LVH. Dilated RV and normal systolic function. Mild TR. Pulmonary pressure 40 mmHg.
Elevated troponin-trending down-
Status post temperature management protocol-now rewarmed
Continue aspirin
CT chest-negative for PE
EEG with low amplitude and likely variability indicating severe diffuse cerebral dysfunction no seizures
Neurology following
#VDRF- ETT re adjusted.
CXR reviewed by me
# Paroxysmal atrial fibrillation
History of ablation and cardioversion
Continue heparin drip if and when okay with neurosurgeon given recent surgery
Hold Pradaxa
# Aspiration pneumonia-continue Zosyn
# Acute kidney injury likely from cardiac arrest- Resolved.
# Revision of cervical spine surgery 01/03/24. Originally had laminectomy C2-C5 July 2023.
# Hypertension-with hypertensive urgency- Hold losartan, continue Cardene and metoprolol
# Hypokalemia-replaced
# Hypothyroidism-slightly elevated T4 and suppressed TSH. Watch and repeat later
# Daily alcohol use(Former heavy alcohol)-watch for withdrawal. Continue thiamine
# History of prostate cancer with history of surgery
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
# Peptic ulcer disease/GERD
# Sleep apnea with history of uvuloplasty
# Ex smoker
# DVT Prophylaxis-Heparin gtt
# Full code
Discussed with ICU team at bedside
Discussed with and son at bedside and other family members.
CC time 35 min
I had a detailed discussion with patient's family about today's exam findings. They are aware that we are also waiting for a CAT scan to see if there are any changes. ( My read looks like there is edema) If there is cerebral edema his prognosis is
poor. As it is with the neuroexam today patient's prognosis looks poor.
[2024-01-09] MEDS: NOVOLOG FLEXPEN-MODERATE RESISTANCE SC ×2 (12:47→19:57)
[2024-01-09 12:51] LABS: Glucose - Point of Care 108 mg/dl (70-99)
--- NOTE | 2024-01-09 13:46 | W.PN.UPDATE ---
Update Note
Progress Note Update
Patient returned from CT head which shows progressive generalized sulcal effacement with diffuse cerebral edema, with mass effect and extrinsic compression. No katt herniation identified or midline shift. This was explained in layman's terms to
the family. They were very upset and emotional support was provided. They brought up to me that he is an organ donor. We will keep full code for now and gift of life will speak to the patient's family at some point today. I also discussed the
patient's CT head findings with neurology and we are starting hypertonic saline to help reduce cerebral swelling. All of the family's questions were answered. Commercial Account Executive was also offered. Bedside nurse present during conversation.
[2024-01-09] MEDS: SODIUM CHLORIDE 3% 250 IV ×2 (14:10→21:04)
[2024-01-09 14:54] LABS: B.E. -2.5 mmol/L; HCO3 21.6 mmol/L (21-28); O2 Saturation % 98.3 % (94-98); PCO2 34 mmHg (35-48); PO2 100 mmHg (83-108); pH 7.41 (7.35-7.45)
[2024-01-09 14:56] LABS: Hematocrit 29.3 % (39.0-52.0); Hemoglobin 10.6 g/dL (13.0-18.0); Mean Corp Hgb Conc. 36.2 g/dL (33.0-37.0); Mean Corpuscular Hgb 31.9 pg (27.0-31.0); Mean Corpuscular Volume 88.3 fL (80.0-94.0); Mean Platelet Volume 9.5 fL (7.4-10.4); Platelet Count 175 10^3/uL (130-400); Red Blood Cell Count 3.32 10^6/uL (4.70-6.10); Red Cell Dist. Width 13.3 % (11.5-14.5)
--- NOTE | 2024-01-09 15:00 | PTCARENOTE ---
3% NSS administered as ordered.Dr Pizarro at bedside discussing CT scan results with pt's and family.Pt's stated that pt is a registered organ donor.GOL coordinator made aware.
[2024-01-09 15:10] LABS: APTT 58.3 Sec (23.4-35.0)
[2024-01-09 15:17] LABS: ALT (SGPT) 19 U/L (0-50); AST (SGOT) 55 U/L (17-59); Albumin 2.7 g/dl (3.5-5.0); Alkaline Phosphatase 89 U/L (38-126); Blood Urea Nitrogen 17 mg/dl (9-20); Calcium 8.7 mg/dl (8.4-10.2); Carbon Dioxide 23 mmol/L (22-30); Chloride 106 mmol/L (98-107); Direct Bilirubin 0.8 mg/dl (0.0-0.4); Estimated Creatinine Clearance 118 ml/min; Glucose 101 mg/dl (70-99); Phosphorus 2.9 mg/dl (2.5-4.5); Potassium 3.5 mmol/L (3.5-5.1); Sodium 140 mmol/L (135-145); Total Bilirubin 1.1 mg/dl (0.2-1.3); Total Protein 5.1 g/dl (6.3-8.2); Triglycerides 126 mg/dl (10-149); eGFR > 60.00
--- NOTE | 2024-01-09 15:19 | PN.CDI ---
CDI
- -
CDI:
Physician Documentation Request
Admit Date: 01/07/24 17:57
Dear Doctor Manuel,
Please review the following and provide your response in the progress notes.
Current documentation includes a diagnosis of hypotension.
Clinical Indicators:
Pt admitted with out of hospital cardiac arrest suspected to be 2/2 cardiac arrhythmia/Pt is intubated
Documented per ED, ' Patient's blood pressure did drop, so currently on Levophed....'
Progress note 01/07, ' Initially required levophed for pressure support, then cardene for hypertension. Both have been discontinued..'
Selected Entries
01/07/24
16:05 01/07/24
16:10 01/07/24
16:15
Blood pressure 63/47 68/47 78/51
MAP (cuff-Rhina Monitor) 54 54 59
01/07/24
16:20 01/07/24
16:25
Blood pressure 79/50 86/51
MAP (cuff-Rhina Monitor) 59 64
Please clarify which of the following is the most likely etiology of the above symptoms and treatment rendered/Use Levophed:
Cardiogenic shock
Other shock ( please specify)
Hypotension only
Use of terms such as suspected, likely, concern for, or probable (associated with a specific diagnosis that is being evaluated, monitored, or treated as if it exists) are acceptable and can be coded in the inpatient setting, when documented at the
time of discharge.
Thank you,
Anabel Garcia RN
CDI Specialist
[place] [facility]
Please use your independent medical judgment in providing your response.
--- NOTE | 2024-01-09 15:26 | PN.CDI ---
CDI
- -
CDI:
Physician Documentation Request
Admit Date: 01/07/24 17:57
Dear Doctor Manuel,
Please review the following and provide your response in the progress notes.
Clinical Indicators:
Pt admitted with out of hospital cardiac arrest suspected to be 2/2 cardiac arrhythmia/Pt is intubated
CXR 01/06 @ 1025 pm,' Worsening bibasilar airspace disease/pneumonia....'
Progress note 01/07, ' #Aspiration pneumonia Continue zosyn...'
On admit Temp 95.7, HR 166, Respirations 30, WBC 13.2 ,Bands (01/07) 13
Please clarify which of the following most accurately describes the status of the patient's infection:
Sepsis- POA
- Systemic manifestations of infection, with 2 or more SIRS criteria which include:
- Fever >100.4 degrees F or hypothermia < 96.8 degrees F
- Leukocytosis - WBC > 12,000 or leukopenia - WBC < 4,000 or > 10% bands
- Tachycardia > 90 beats per minute
- Tachypnea - RR > 20 breaths per minute or PaCO2 , 32mmHg
Source: Merck Manual 2012
Sepsis - Not POA
Aspiration Pneumonia only , Without Systemic Illness
Other
Use of terms such as suspected, likely, concern for, or probable (associated with a specific diagnosis that is being evaluated, monitored, or treated as if it exists) are acceptable and can be coded in the inpatient setting, when documented at the
time of discharge.
Thank you,
Anabel Garcia RN
CDI Specialist
[place] [facility]
Please use your independent medical judgment in providing your response.
--- NOTE | 2024-01-09 15:42 | W.PN.INTV ---
Today's Communication / Plan
Recommendations
Patient remains intubated off sedation. Pupils are not reactive, no corneal reflex, no cough or gag reflex. CT head shows progressive generalized sulcal effacement with diffuse cerebral edema, with mass effect and extrinsic compression. No katt
herniation identified or midline shift. Discussed the patient CT head findings with the patient's family and they understand that the prognosis is poor based on imaging and neurological exam. Patient's family made it known that the patient is a
organ donor. Patient will remain full code for the time being and [facility] is meeting with the patient's family. Vehicle Mechanic services were also offered.
Assessment
-
Impression:
-Cardiac arrest/Un-shockable rhythm/PEA
-Intubated Status
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
-Paroxysmal atrial fibrillation
-Aspiration pneumonia
-Hypertension with hypertensive urgency
-Hypothyroidism
-Alcohol dependence
-History of prostate cancer s/p surgery
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
-Peptic ulcer disease/GERD
-Sleep apnea with history of uvuloplasty
-Former smoker
Plan:
-Cardiac arrest/Un-shockable rhythm/PEA: Stable
EKG conducted on 01/07/2024 showed supraventricular tachycardia, low voltage QRS, incomplete right bundle branch block, left anterior fascicular block, inferior infarct (which was cited on or before 04/04/2022), possible anterior lateral infarct.
Echocardiogram conducted on 01/07/2024 showed normal left ventricular size and function. Ejection fraction 60 to 65%. No left ventricular hypertrophy. There is also a dilated right ventricle and normal systolic function. Mild tricuspid
regurgitation.
Troponins peaked at 0.162 on 01/07/2024 and is currently 0.155 on 01/08/2024. Trending downward
Temperature currently at a 97.9F
CT chest was negative for pulmonary embolism
Continuous EEG conducted on 01/08/2024 showed relatively low amplitude, no clear PDR, no clear seizure activity seen
Appreciate neurology input-they recommended minimizing sedation as tolerated for optimal neuro examination. We also plan to obtain an MRI of the brain in the next few days if mental status does not improve for better visualization of injury.
-Intubated Status: Stable
Intubated and sedated with fentanyl
Pupils sluggishly reactive to light
Vent settings: 500/18/50%/5 with Sp02 at 95%, HR at 111, 28 Breaths per minute
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
Head CT conducted on 01/09/2024 shows findings consistent with diffuse cytotoxic edema reflecting hypoxic ischemic encephalopathy with supratentorial and infratentorial brain swelling. Mass effect results in cerebral sulcal effacement as well as
effacement of the posterior fossa cisterns. There is also a mass effect compressing the aqueduct of Sylvius and fourth ventricle with secondary mild hydrocephalus having developed. No katt herniation identified. No midline shift.
No corneal reflex
No cough/gag reflex
Signs of the start of decerebrate posturing
Neurological checks as per unit guideline
Hypertonic saline started to reduce cerebral swelling
-Paroxysmal atrial fibrillation: Stable
S/p ablation
Heparin gtt started after neurosurgery assessment cleared him
Pradaxa on hold
[id number] score calculated to be 1
-Aspiration pneumonia: Stable
Chest x-ray conducted on 01/07/2024 showed no evidence of pulmonary embolism. Confluent right lower lobe consolidation likely represents combination of atelectasis and pneumonia. Additional scattered bilateral multifocal pneumonia noted.
Patient currently on Zosyn
-Hypertension with hypertensive urgency: Stable
Currently on nicardipine IV
Levophed discontinued
-Hypothyroidism: Stable
TSH was low at 0.04 and free T4 was elevated at 2.22 in the emergency department
Follow TSH
-Peptic ulcer disease/GERD
IV Protonix given
DVT prophylaxis-heparin gtt
Stress Ulcer prophylaxis�pantoprazole sodium
FULL CODE STATUS
Subjective Dataa
Subjective Data
Date of Service:
Date of Service: January 09, 2024
Subjective:
Patiently currently intubated and unable to communicate.
Review of Systems
General: Unobtainable - Sedation
Objective Data
Data Reviewed
Vital Signs / I&O / Oxygen:
Vital Signs
Temp Pulse Resp BP Pulse Ox
97.9 F 97 22 132/91 96
01/09/24 12:00 01/09/24 14:30 01/09/24 14:30 01/07/24 20:00 01/09/24 14:30
Intake and Output
01/08/24 01/09/24 01/10/24
06:59 06:59 06:59
Intake Total 1016.9 / 1108.7 2203.9 / 2203.9
Output Total 1485 / 1515 1800 / 1800
Balance -468.1 / -406.3 403.9 / 403.9
SaO2 [A/C] 96
SaO2 96
Labs
01/09/24 22:00
01/09/24 22:00
Labs/Micro/Reports
Lab Data
01/09/24 22:00
01/09/24 22:00
Laboratory Results
01/08/24 01/09/24 01/09/24
19:39 02:03 05:07
APTT 77.6 H 72.6 H 70.9 H
pH 7.41
pCO2 36
pO2 85
HCO3 22.8
O2 Delivery Level
01/09/24 01/09/24
09:12 14:41
APTT 88.5 H 58.3 H
pH 7.41
pCO2 34 L
pO2 100
HCO3 21.6
O2 Delivery Level Not Reportable
--- NOTE | 2024-01-09 16:00 | PTCARENOTE ---
Pt assessed.No change in assessment noted.Pt's extended family at bedside.Plan of care discussed.Emotional support given.
[2024-01-09 17:25] LABS: Glucose - Point of Care 102 mg/dl (70-99)
--- NOTE | 2024-01-09 17:49 | EEGC.RPT ---
Continuous EEG Report
Recording
Start Date of Data Reviewed: 01/09/24
Start Time of Data Reviewed: 07:00
End Date of Data Reviewed: 01/09/24
End Time of Data Reviewed: 10:50
Done with Video Recording: Yes
Study Sequence: Continuation of ongoing Study
Report
METHODS
A 21 channel digitized electroencephalogram was performed at [facility]. The 10/20 international system of electrode placement was used. In addition to EEG, the patient was monitored for EKG. The duration of the recording was 3 hours and 50
mins
BACKGROUND
The background consisted of relatively low amplitude activity, no clear posterior dominant rhythm, little variability and muscle artifact obscuring aspects of the recording. Of what was visible, no clear seizure activity was seen.
PHOTIC STIMULATION
Photic stimulation was not performed.
CLINICAL EVENTS
None
INTERPRETATION AND CLINICAL CORRELATION
This EEG is abnormal due to the presence of relatively low amplitude activity, no clear posterior dominant rhythm, little to no variability and muscle artifact obscuring aspects of the recording. Of what was visible, no clear seizure activity was
seen. The study is consistent with severe diffuse cerebral dysfunction, nonspecific in etiology.
[2024-01-09] MEDS: TYLENOL ORAL SOLUTION TUBE (19:55)
[2024-01-09] MEDS: LOPRESSOR IV (19:55)
--- NOTE | 2024-01-09 20:00 | PTCARENOTE ---
rec`d pt at 1900 unresponsive, intubated. pt has no gag, no corneals, pt has began posturing on day shift. pupils equal, 2 to 3mm. sluggish. SR on monitor. HR 80s to 90s. heparin, prop, and NS. thick vazquez secretions. coarse breath sounds. POX 94-97%.
vent settings 18/ 500/ 40%/ 5 of peep. #7.5 ETT. RT NGT on LIWS. lowry draining parisa urine. bishnu on upper posterior neck from pre hospital sx. c/d/i gauze. left PICC, 18 rt AC, 18 rt upper arm. rt radial a line zeroed and transduced. family at
bedside. support given. safe environment maintained.
[2024-01-09] MEDS: KCL ELIXIR 40 MEQ TUBE (20:05)
[2024-01-09 21:39] LABS: APTT 92.7 Sec (23.4-35.0)
[2024-01-10] MEDS: SUBLIMAZE 50 MCG IV ×7 (00:11→22:43)
[2024-01-10] MEDS: LOPRESSOR IV ×4 (00:13→23:13)
[2024-01-10] MEDS: NOVOLOG FLEXPEN-MODERATE RESISTANCE SC ×5 (01:00→23:13)
[2024-01-10 01:08] LABS: Glucose - Point of Care 116 mg/dl (70-99)
[2024-01-10 01:41] LABS: Blood Urea Nitrogen 16 mg/dl (9-20); Calcium 8.8 mg/dl (8.4-10.2); Carbon Dioxide 23 mmol/L (22-30); Chloride 112 mmol/L (98-107); Estimated Creatinine Clearance 118 ml/min; Glucose 120 mg/dl (70-99); Potassium 3.9 mmol/L (3.5-5.1); Sodium 143 mmol/L (135-145); eGFR > 60.00
[2024-01-10] MEDS: ZOSYN 50 IV ×4 (01:42→21:01)
[2024-01-10] MEDS: SODIUM CHLORIDE 3% 250 IV ×2 (02:24→08:27)
[2024-01-10] MEDS: TYLENOL ORAL SOLUTION 650 MG TUBE ×4 (03:07→21:02)
[2024-01-10 04:45] LABS: B.E. -0.4 mmol/L; HCO3 24.1 mmol/L (21-28); O2 Saturation % 98.7 % (94-98); PCO2 38 mmHg (35-48); PO2 100 mmHg (83-108); pH 7.41 (7.35-7.45)
[2024-01-10 05:09] LABS: Hematocrit 30.7 % (39.0-52.0); Hemoglobin 10.9 g/dL (13.0-18.0); Mean Corp Hgb Conc. 35.5 g/dL (33.0-37.0); Mean Corpuscular Hgb 31.7 pg (27.0-31.0); Mean Corpuscular Volume 89.2 fL (80.0-94.0); Mean Platelet Volume 9.6 fL (7.4-10.4); Platelet Count 165 10^3/uL (130-400); Red Blood Cell Count 3.44 10^6/uL (4.70-6.10); Red Cell Dist. Width 13.7 % (11.5-14.5); White Blood Cell Count 9.1 10^3/uL (4.8-10.8)
[2024-01-10 05:23] LABS: APTT 81.9 Sec (23.4-35.0)
--- NOTE | 2024-01-10 05:28 | PTCARENOTE ---
pupils no longer reactive. pupils equal 2mm. [employer] aware.
[2024-01-10 05:33] LABS: ALT (SGPT) 16 U/L (0-50); AST (SGOT) 50 U/L (17-59); Albumin 2.5 g/dl (3.5-5.0); Alkaline Phosphatase 101 U/L (38-126); Blood Urea Nitrogen 16 mg/dl (9-20); Calcium 8.7 mg/dl (8.4-10.2); Carbon Dioxide 22 mmol/L (22-30); Chloride 113 mmol/L (98-107); Estimated Creatinine Clearance 103 ml/min; Glucose 126 mg/dl (70-99); Magnesium 2.1 mg/dl (1.6-2.3); Phosphorus 2.2 mg/dl (2.5-4.5); Potassium 3.7 mmol/L (3.5-5.1); Sodium 144 mmol/L (135-145); Total Bilirubin 1.1 mg/dl (0.2-1.3); Total Protein 4.8 g/dl (6.3-8.2); Triglycerides 131 mg/dl (10-149); eGFR > 60.00
[2024-01-10 05:40] LABS: NT-proBNP 368 pg/ml
[2024-01-10 05:41] LABS: Prealbumin (Transthyretin) 5.4 mg/dl (17.6-36.0)
[2024-01-10 06:00] VITALS: BMI 28.9
[2024-01-10] MEDS: THIAMINE INJECTION 200 MG IV (07:09)
[2024-01-10] MEDS: POTASSIUM PHOSPHATE 259.0909 MEQ IV (07:09)
[2024-01-10] MEDS: PROTONIX IV 40 MG IV (07:09)
[2024-01-10] MEDS: ASPIRIN 300 MG RECTAL (07:10)
[2024-01-10] MEDS: REFRESH CELLUVISC GEL 1 DROPS BOTH EYES ×2 (07:10→21:01)
[2024-01-10 07:18] LABS: % Basophils 0.6 % (0-2); % Immature Granulocytes 1.7 % (0-0.5); % Lymphocytes 7.7 % (20.5-51.1); % Monocytes 5.7 % (1.7-9.3); % Neutrophils 83.3 % (42.2-75.2); Absolute Basophils 0.1 10^3/uL (0-0.2); Absolute Eosinophils 0.1 10^3/uL (0-0.7); Absolute Immature Granulocytes 0.2 10^3/uL (0-0.05); Absolute Lymphocytes 0.7 10^3/uL (1.2-3.4); Absolute Monocytes 0.5 10^3/uL (0.1-0.6); Absolute Neutrophils 7.6 10^3/uL (1.4-6.5); Nucleated Red Blood Cells % 0 % (-)
--- NOTE | 2024-01-10 07:52 | W.PN.INTV ---
Today's Communication / Plan
Recommendations
Patient continues to receive Zosyn for ongoing pneumonia. Patient received potassium phosphate overnight due to low phosphate levels. Will continue to provide hemodynamic and respiratory support for the patient until final decisions regarding
end-of-life care/services are decided with the patient's family.
Assessment
-
Impression:
-Cardiac arrest/Un-shockable rhythm/PEA
-Intubated Status
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
-Paroxysmal atrial fibrillation
-Aspiration pneumonia
-Hypertension with hypertensive urgency
-Hypothyroidism
-Alcohol dependence
-History of prostate cancer s/p surgery
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
-Peptic ulcer disease/GERD
-Sleep apnea with history of uvuloplasty
-Former smoker
Plan:
-Cardiac arrest/Un-shockable rhythm/PEA: Stable
EKG conducted on 01/07/2024 showed supraventricular tachycardia, low voltage QRS, incomplete right bundle branch block, left anterior fascicular block, inferior infarct (which was cited on or before 04/04/2022), possible anterior lateral infarct.
Echocardiogram conducted on 01/07/2024 showed normal left ventricular size and function. Ejection fraction 60 to 65%. No left ventricular hypertrophy. There is also a dilated right ventricle and normal systolic function. Mild tricuspid
regurgitation.
Troponins peaked at 0.162 on 01/07/2024 and is currently 0.155 on 01/08/2024. Trending downward
Temperature currently at a 97.9F
CT chest was negative for pulmonary embolism
Continuous EEG conducted on 01/08/2024 showed relatively low amplitude, no clear PDR, no clear seizure activity seen
Appreciate neurology input-they recommended minimizing sedation as tolerated for optimal neuro examination. We also plan to obtain an MRI of the brain in the next few days if mental status does not improve for better visualization of injury.
-Intubated Status: Stable
Intubated and sedated with fentanyl
Vent settings: 500/18/40%/5 with Sp02 at 95%, HR at 111, 34 Breaths per minute
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
Head CT conducted on 01/09/2024 shows findings consistent with diffuse cytotoxic edema reflecting hypoxic ischemic encephalopathy with supratentorial and infratentorial brain swelling. Mass effect results in cerebral sulcal effacement as well as
effacement of the posterior fossa cisterns. There is also a mass effect compressing the aqueduct of Sylvius and fourth ventricle with secondary mild hydrocephalus having developed. No katt herniation identified. No midline shift.
Pupils no longer reactive
No corneal reflex
No cough/gag reflex
Signs of the start of decerebrate posturing
Neurological checks as per unit guideline
Hypertonic saline started to reduce cerebral swelling
Pain management using fentanyl and acetaminophen
-Paroxysmal atrial fibrillation: Stable
S/p ablation
Heparin gtt started after neurosurgery assessment cleared him
Pradaxa on hold
[id number] score calculated to be 1
-Aspiration pneumonia: Stable
Chest x-ray conducted on 01/07/2024 showed no evidence of pulmonary embolism. Confluent right lower lobe consolidation likely represents combination of atelectasis and pneumonia. Additional scattered bilateral multifocal pneumonia noted.
X-ray conducted on 01/10/2024 shows No pneumothorax.
Patient currently on Zosyn
-Hypertension with hypertensive urgency: Stable
Currently on nicardipine IV
Levophed discontinued
-Hypothyroidism: Stable
TSH was low at 0.04 and free T4 was elevated at 2.22 in the emergency department
Follow TSH
-Peptic ulcer disease/GERD
IV Protonix given
DVT prophylaxis-heparin gtt
Stress Ulcer prophylaxis�pantoprazole sodium
FULL CODE STATUS
Subjective Dataa
Subjective Data
Date of Service:
Date of Service: January 10, 2024..
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
Subjective:
Patient currently intubated and not responding to verbal stimuli. His corneal, gag and cough reflexes are all absent.
Review of Systems
General: Unobtainable - Pat Unresp
Genitourinary: Hall
Objective Data
Data Reviewed
Vital Signs / I&O / Oxygen:
Vital Signs
Temp Pulse Resp BP Pulse Ox
97.5 F 80 14 132/91 95
01/10/24 07:28 01/10/24 05:30 01/10/24 05:30 01/07/24 20:00 01/10/24 07:20
Intake and Output
01/09/24 01/10/24 01/11/24
06:59 06:59 06:59
Intake Total 2203.9 / 2305.6 2697.6 / 2697.6
Output Total 1800 / 1830 1400 / 1400
Balance 403.9 / 475.6 1297.6 / 1297.6
SaO2 [A/C] 97
SaO2 95
Physical Exam
General: Other (Patient intubated)
HEENT: Normocephalic and Moist Mucous Membranes
Cardiovascular: Regular Rhythm
Respiratory: Other (Mechanical ventilator sounds heard bilaterally)
GI: Soft, Non Distended and Normal Bowel Sounds
Neurology: Unresponsive
Skin: Other (Trace lower extremity edema bilaterally)
Labs/Micro/Reports
Lab Data
01/10/24 04:31
Laboratory Results
01/09/24 01/09/24 01/09/24
09:12 14:41 21:20
APTT 88.5 H 58.3 H 92.7 H
pH 7.41
pCO2 34 L
pO2 100
HCO3 21.6
O2 Delivery Level Not Reportable
01/10/24
04:31
APTT 81.9 H
pH 7.41
pCO2 38
pO2 100
HCO3 24.1
O2 Delivery Level
Labs
01/10/24 04:31
01/10/24 07:30
[2024-01-10 07:53] LABS: Sodium 146 mmol/L (135-145)
[2024-01-10] MEDS: HEPARIN 25000 UNITS/250 ML IV (08:08)
--- NOTE | 2024-01-10 09:17 | PTCARENOTE ---
Rec'd care of patient at 0700. Patient unresponsive to all stimuli. Decerebrate. Absent corneal, cough, gag reflexes. Pupils +3mm, nonreactive. NSR on tele monitor. Rate in the 90's. Trace anasarca. +2 sclera edema. Pulses weak, palpable. #7.5 ett,
24cm @ the lip. A/C 500/18/40%/5. Patient overbreathing ventilator. RR high 20's, low 30's. Peak airway pressures 40. Oral and endotracheal suctioning provided as needed. Large amount of thick, vazquez secretions suctioned from ett. Lung sounds coarse
throughout. +BS. NGT to low intermittent suction. No BM. Hall in place for critical I/O's. Output 30-60 cc's/hr; parisa. Vitals stable. Right radial ramila zeroed and flushed. Heparin/Propofol/IVFs infusing through left dual lumen PICC. TTM set for
normothermia until 2217. GOL coordinator in house.
[2024-01-10] MEDS: DIPRIVAN 100 IV ×3 (09:42→19:18)
[2024-01-10] MEDS: NSS 1000 IV ×2 (09:42→21:03)
--- NOTE | 2024-01-10 10:02 | W.PN.CD ---
Today's Communication / Plan
-
- Withdrawal of care as per family
- We are available for support.
Impression / Plan
-
Cardiac arrest
-cardiac arrest at home - unclear down tome.
-CPR started by police then ACLS by EMS, ROSC achieved then lost en route, ACLS resumed in resuscitation room, ROSC achieved after 3 rounds of epinephrine and high-quality CPR
-PEA arrest -no shock given. 01/07/24
-Unresponsive and intubated requiring mechanical ventilation
-Head CT- negative. CT chest -ve for PE.
-ASA 300mg IN given in resuscitation room
-s/p cooling and rewarmed - had dilated fixed pupil
-Poor prognosis. Withdrawal as per family.
Sinus tach
-sinus tachycardia resolved - on Metoprolol 2.5 mg q6 hr - can increase as needed.
-Also hypertensive and started nicardipine drip. labile BP with fluctuations.
Abnormal troponin, type unknown
-Expect it to be elevated given CPR
-no concern for ACS
-ECHO showed hyperdynamic LV wall without wall motion abnormalities.
Paroxysmal atrial fibrillation
-Sinus tachycardia on telemetry
-Oral Anticoagulation: Prior to spinal surgery he was on dabigatran 150 mg twice daily
-Per primary chargemaster analyst, there was a possibility of stopping dabigatran altogether given his low [id number] score and successful ablation back in 2021.
-[id number]: Score 1 (HTN) - OK to use rectal ASA. No need for dabigatran.
-DVT prophylaxis as per primary team - On Heparin drip.
Hypertension,
-Nicardipine drip - on and off
-Metoprolol 2.5 mg q6h
-Based on brain activity, can consider tube and tube feeds with meds.
Sinus tachycardia, on metoprolol succinate 50 mg in the outpatient setting, note 100 mg caused fatigue
Hypothyroidism on levothyroxine
Prior tonsillar cancer status post resection and XRT
Prior prostate cancer, status post prostatectomy
Former smoker
Physical Exam
Vital Signs/Labs
Vital Signs
Temp Pulse Resp BP Pulse Ox
98.4 F 91 24 132/91 95
01/10/24 10:00 01/10/24 09:00 01/10/24 09:00 01/07/24 20:00 01/10/24 09:00
01/09/24 01/10/24 01/11/24
06:59 06:59 06:59
Actual Weight 93.5 kg 94 kg
01/10/24 04:31
01/10/24 07:30
PT 16.3 Sec (11.4-14.6) H 01/07/24 15:54
INR 1.33 01/07/24 15:54
APTT 81.9 Sec (23.4-35.0) H 01/10/24 04:31
Magnesium 2.1 mg/dl (1.6-2.3) 01/10/24 04:31
Triglycerides 131 mg/dl (10-149) 01/10/24 04:31
LDL Cholesterol, Calc 91 mg/dl 01/08/24 04:11
VLDL Cholesterol, Calc 21 mg/dl (0-30) 01/08/24 04:11
HDL Cholesterol 43 mg/dl 01/08/24 04:11
Free T4 2.22 ng/dl (0.78-2.19) H 01/07/24 16:56
01/08/24 01/09/24 01/10/24
04:11 05:07 04:31
Utr-P-Hoycmqnqhzo Pept 1930 850 368
LAB Results
01/07/24 01/07/24 01/07/24
15:54 16:56 21:54
Troponin I Cancelled 0.035 H* 0.162 H* D
01/08/24
04:11
Troponin I 0.155 H*
Physical Exam
Constitutional: No acute distress and Other (unresponsive )
Cardiovascular: Rhythm & rate is regular, Pedal edema is absent and JVD pressure is normal
Respiratory: Other (mechanical ventilation. )
GI: Soft and Normal bowel sounds
Neuro/Psych: Other (unresponsive. fixed pupils. )
Data Reviewed
-
Date of Service: January 10, 2024
Medical Decision Making: Reviewed Test Results, Independent Historian Assessment, Test Interpretation and Review of Case with other Provider
EKG: Tracing Personally Visualized and interpreted
Echo: Report Reviewed by me
Labs: Labs Reviewed by me
Old Records: Reviewed
--- NOTE | 2024-01-10 10:11 | W.PN.HOSP.TC ---
Addendum entered and electronically signed by Preston Jackson MD 01/10/24 14:59:
Correction- Patient on Propofol and Fentanyl. Therefore neuro exam on my note not accurate for a person on sedation as he was overbreathing and asynchronous with the vent. Cerebral edema still not a good prognostic sign. He was evaluated off
sedation yesterday. with out any response.
Addendum entered and electronically signed by Preston Jackson MD 01/10/24 14:06:
63-year-old male presented with cardiac arrest. History obtained from alternate source other providers/medical records. 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 He is
followed by Dr. Robles. He had C2- C5 Laminectomy Dr. Spears at [facility] in July 2023. September 2023 he had tripped and fell. He was wearing a collar at that time. 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 He underwent a revision of the surgery on 01/03/2024. He was on Pradaxa which was on hold after surgery. Yesterday he had some pain in the back and a cough yesterday he took oxycodone and
Zanaflex and lay down. returned shortly and found him unresponsive she called 911. He received 1 round of epinephrine and CPR. ROSC was obtained. En route he became pulseless and received another 3 A of epinephrine and 2 A of bicarb and
calcium with ROSC again. He was intubated/enroute he was in PEA on arrival to the ER.
Seen in the ICU earlier today. Late documentation.
Intubated
Off sedation
Pupils not reactive
No corneal reflex
No cough prophylax with suctioning
Cardiovascular system S1-S2 appreciated
Chest clear to auscultation
Abdomen soft and nontender
Clonus noted.
# Cardiac arrest-Un shockable rhythm-PEA Arrest
Prehospital EKG with ST depressions. Echo-normal LV size and function. EF 60 to 65%. No LVH. Dilated RV and normal systolic function. Mild TR. Pulmonary pressure 40 mmHg.
Elevated troponin-trending down-
Status post Active temperature control Protocol (ATC)
Continue aspirin
CT chest-negative for PE
EEG with low amplitude and likely variability indicating severe diffuse cerebral dysfunction no seizures
Has been off of sedation - Not waking up.
Neurology following
#VDRF- no plan for wean
# Hypotension and Hypertension due to Cerebral edema?
# Paroxysmal atrial fibrillation
History of ablation and cardioversion
Continue heparin drip
Hold Pradaxa
# Aspiration pneumonia-continue Zosyn
# Acute kidney injury likely from cardiac arrest- Resolved.
# Revision of cervical spine surgery 01/03/24. Originally had laminectomy C2-C5 July 2023.
# Hypertension-with hypertensive urgency- Hold losartan, Continue metoprolol
# Hypokalemia-replaced
# Hypothyroidism-slightly elevated T4 and suppressed TSH.
# Daily alcohol use(Former heavy alcohol)-Continue thiamine
# History of prostate cancer with history of surgery
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
# Peptic ulcer disease/GERD
# Sleep apnea with history of uvuloplasty
# Ex smoker
# DVT Prophylaxis-Heparin gtt
# Full code
Discussed with ICU team at bedside, discussed with neurology
Discussed with and other family members at bedside . They have not made a decision. Prognosis is poor.
CC time 32 min
Original Note:
Today's Communication/Plan
-
see plan
Assessment / Plan
Assessment / Plan
63yo M with [facility] s/p revision cervical surgery on 01/03/24 (with Dr. 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
2021, HTN who presented from home to ED [facility] for cardiac arrest 01/06. Per record review, he was recently discharged from [facility] following spinal surgery. Yesterday at home he reported chest/back pain and his found him unresponsive. ACLS by
EMS with ROSC en route to hospital. In ED, found to be in PEA and bicarb x2, calcium, epi x3 administered with continued ACLS, no shocks. ROSC achieved and levophed drip started (now off).
#Cardiac arrest
#PEA
#hypertension
- Unclear etiology, possibly cardiac arrhythmia. Unclear downtime, per previous documentation about 10 minutes.
- On admission, Chest CT w IV contrast negative for PE. Head CT negative for intracranial hemorrhage
- Echo 01/06: EF 60-65%, no regional wall motion abnormalities
- BNP 1930, troponin 0.35 --> 0.162 --> 0.155
- Remains intubated. Continue mechanical ventilation per respiratory
- Hall in situ, clear yellow urine. Adequate UOP, 49mL/kg/hr over past few hours. Continue to monitor I&Os.
- Now euthermic. Previously on cooling protocol (initiated at 01/06). Gradual rewarming began at 01/07
- Continue serial CMP, CBC
- Continue IVF, insulin protocol, electrolyte supplementation, rectal aspirin, heparin
- Off sedation, continue fentanyl prn for pain management
- Cardiology following. Continue BP control with cardene and metoprolol.
- Neuro following. EEG consistent with severe diffuse cerebral dysfunction
- Given EEG findings and decreased reflexes on physical exam (weak cough 01/07, now no cough or gag with deep suctioning) despite rewarming, no clinical improvement. Repeat head CT 01/08 consistent with diffuse cytotoxic edema, hypoxic-ischemic
encephalopathy, brain swelling with mass effect, hydrocephalous. Neurologic exam worsening, now with bilateral clonus at ankles. However he is still breathing over the ventilator. Overall poor prognosis.
- [facility] has met with family. Family has not made decision yet. Will defer discussions regarding organ donation to gift of life.
#paroxysmal afib s/p ablation, PVI 2021
#sinus tachycardia
- Dabigatran reportedly held for about 5 days prior to surgery
- Hold dabigatron
- HR 90s this AM
- Continue to monitor
#Aspiration pneumonia
- Continue zosyn
#Tonsillar cancer s/p radiation and tonsillectomy 2006
#Cervical myelopathy
#S/p C2-C5 laminectomy 07/2023
#Cervical hardware failure, kyphotic deformity, listhesis
#S/p revision cervical surgery with C2-T2 fusion 01/03/24
#KATTY
- Suspect secondary to poor renal perfusion during cardiac arrest
- Cr 1.4 on admission --> 0.8 today
#Daily alcohol use
- Monitor for signs/symptoms of alcohol withdrawal
- Supplement thiamine
#peptic ulcer disease/GERD
#H/o GI bleed
- IV protonix
#Hypothyroidism
- Continue home levothyroxine 200mcg
- TSH 0.04 low, T4 2.22 high. Recheck TSH when stable
#H/o prostate cancer s/p prostatectomy
#Sleep apnea
#s/p uvuloplasty
Code status: full
VTE ppx: heparin
Diet: NPO
Dispo planning: TBD
Anticipated Discharge: > 48 hours
Subjective/Interval History
-
Date of Service: January 10, 2024
Per nursing, gift of life has been meeting with family and discussing organ donations. They have not come to a decision.
Objective Data
-
Labs:
Laboratory Results
01/10/24 01/10/24 01/10/24
00:56 04:31 07:30
WBC 9.1
Hgb 10.9 L
Hct 30.7 L
Plt Count 165
APTT 81.9 H
HCO3 24.1
Sodium 143 144 146 H
Potassium 3.9 3.7
Chloride 112 H 113 H
Carbon Dioxide 23 22
BUN 16 16
Creatinine 0.7 0.8
Glucose 120 H 126 H
Calcium 8.8 8.7
Total Bilirubin 1.1
AST 50
ALT 16
Alkaline Phosphatase 101
Vital Signs:
Vital Signs
Temp Pulse Resp BP Pulse Ox
98.4 F 95 40 132/91 96
01/10/24 10:00 01/10/24 10:00 01/10/24 10:00 01/07/24 20:00 01/10/24 10:00
I&O
01/09/24 01/10/24 01/11/24
06:59 06:59 06:59
Intake Total 2203.9 / 2305.6 2697.6 / 2851.9 827.2 / 827.2
Output Total 1800 / 1830 1400 / 1460 170 / 170
Balance 403.9 / 475.6 1297.6 / 1391.9 657.2 / 657.2
Review of Systems
-
Unable to obtain full review of systems at this time due to: Patient Intubation
Physical Exam
-
General: Intubated
HEENT: Normocephalic, Atraumatic, Anicteric, [place] Conjunctivae and Other (pupils equal 3mm unresponsive to light; absent corneal reflex)
Respiratory: Rhonchi and Other (intubated and breathing over ventilator)
Cardiac: Regular Rhythm and S1/S2
GI: Soft and Nondistended
Genito-urinary: Clear Urine and Hall
Musculoskeletal: No Cyanosis and Other (+1 pitting edema bilateral lower extremities symmetric)
Skin: Warm, Dry and IV Access / Catheter Site (L arm PICC, R A line)
Neuro: Other (no cough or gag reflex with deep suctioning; absent corneal reflex; decerebrate posturing; +clonus bilaterally); Negative Awake
--- NOTE | 2024-01-10 10:26 | PTCARENOTE ---
GOL coordinator at bedside to discuss options with family.
[2024-01-10] MEDS: SUBLIMAZE 100 IV (10:44)
--- NOTE | 2024-01-10 11:03 | W.PN.NEURO.1 ---
Addendum entered and electronically signed by Michael Robles MD 01/11/24 07:26:
Anoxic Brain injury only
Original Note:
Today's Communication / Plan
-
-Heparin drip, resume OAC when able, unless withdrawal from care is sought
Neuro Assessment/Plan
Assessment
63 year-old male with cardiac, completed TTM. Down time was approximately 10 mins. 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
-CT Head 01/09/24: Consistent with diffuse cerebral edema
-Continuous EEG 01/09/24: This EEG is abnormal due to the presence of relatively low amplitude activity, no clear posterior dominant rhythm, little variability and muscle artifact obscuring aspects of the recording. Of what was visible, no clear
seizure activity was seen. The study is consistent with severe diffuse cerebral dysfunction, nonspecific in etiology.
I. Cardiac arrest x2, unclear total downtime.
II. Recent C2-C5 hardware repair/laminectomy..
Prognosis for patient is extremely poor based on unreactive EEG and CT of head demonstrating diffuse changes suggestive of edema. Patient unchanged after receiving hypertonic saline
Plan
-Heparin drip, resume OAC when able, unless withdrawal from care is sought
-DVT prophylaxis.
We will follow as needed
Subjective/Objective
Subjective Data
Date of Service: January 10, 2024
Patient unable provide his own medical history.
Objective Data
Vital Signs
Temp Pulse Resp BP Pulse Ox
36.9 C 94 33 132/91 96
01/10/24 10:00 01/10/24 10:45 01/10/24 10:45 01/07/24 20:00 01/10/24 10:45
Lab Results
01/10/24 04:31
01/10/24 07:30
PT 16.3 Sec (11.4-14.6) H 01/07/24 15:54
INR 1.33 01/07/24 15:54
APTT 81.9 Sec (23.4-35.0) H 01/10/24 04:31
Sodium 146 mmol/L (135-145) H 01/10/24 07:30
Potassium 3.7 mmol/L (3.5-5.1) 01/10/24 04:31
BUN 16 mg/dl (9-20) 01/10/24 04:31
Glucose 126 mg/dl (70-99) H 01/10/24 04:31
Calcium 8.7 mg/dl (8.4-10.2) 01/10/24 04:31
Phosphorus 2.2 mg/dl (2.5-4.5) L 01/10/24 04:31
Cax-G-Zsbsobiapth Pept 368 pg/ml 01/10/24 04:31
LDL Cholesterol, Calc 91 mg/dl 01/08/24 04:11
Patient Allergies
No Known Allergies Allergy (Verified 01/07/24 16:30)
Review of Systems
-
Unable to obtain full review of systems at this time due to: Patient Intubation and Other (Unresponsive)
History Source: Patient
All other systems: Reviewed and negative
Physical Exam
-
General: No Apparent Distress and Intubated
Eyes: PERRLA (sluggish)
HEENT: Normocephalic and Atraumatic
Neck: Limited Range of Motion
Respiratory: Other (intubated)
Cardiac: No JVD
GI: Non-distended
Extremities: No Clubbing, No Cyanosis and No Edema
Psych: Unable to Assess
Extended Neurological Exam
Mood & Affect: Unable to Assess
Attention Span & Concentration: Unresponsive to Verbal Stimuli and Unresponsive to Physical Stimuli
Memory: Unable to Assess
Tremor: Hand Tremor Absent and Head Tremor Absent
Involuntary Movement: None
Speech: Unable to Assess
Cranial Nerve II: Left Eye: Pupillary Size Unremarkable, Unreactive and Unable to Assess Visual Gonzalez
Cranial Nerve II: Right Eye: Pupillary Size Unremarkable, Unreactive and Unable to Assess Visual Gonzalez
Cranial Nerves III, IV, : Extraocular Movement: Absent Doll's Eyes
Cranial Nerve V: Facial Sensation: Unable to Assess
Cranial Nerve VII: Facial Symmetry: Unable to Assess
Cranial Nerve VIII: Hearing: Unable to Assess
Cranial Nerves IX, X: Palate Movement: Unable to Assess
Cranial Nerve XI: Shoulder Shrug: Unable to Assess
Cranial Nerve XII: Tongue Protusion: Unable to Assess
Muscle Strength, Overall: Negative Spontaneously Moves
Pronator Drift: Unable to Assess
Cold Sensation: Unable to Assess
Vibration Sensation: Unable to Assess
Coordination: Unable to Assess
Gait & Station: Unable to Assess
Data Reviewed
-
CT Head: Report Reviewed and Image Reviewed
Labs: Report Reviewed
Reviewed with: Physician, Nurse and Family
Old Records: Summarized
[2024-01-10] MEDS: SYNTHROID 175 MCG TUBE (12:01)
[2024-01-10 12:08] LABS: Glucose - Point of Care 97 mg/dl (70-99)
--- NOTE | 2024-01-10 12:12 | PTCARENOTE ---
RR in the 30-40's. Peak airway pressures 45-50. Face Hardener at bedside. Sedation increased for vent dyssynchrony. No other changes in assessment. Family at bedside. Emotional support provided.
--- NOTE | 2024-01-10 14:17 | CM ---
CM following re: discharge planning.
Reviewed pt's chart.
Per Rounds meeting, pt remains intubated and not responding to verbal stimuli, continue hemodynamic and respiratory support.
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
D/C plan: uncertain at this time and will depend on pt's progress.
CM will follow with discharge plan updates as hospitalization progresses
[2024-01-10] MEDS: ROBINUL 0.2 MG IV (15:21)
--- NOTE | 2024-01-10 15:21 | PTCARENOTE ---
Patient having a copious amount of oral secretions. Requiring frequent suctioning. Order for Juan Manuel obtained.
--- NOTE | 2024-01-10 16:33 | PTCARENOTE ---
Patient remains unresponsive. Posturing. Minor changes in assessment. Secretions decreased s/p Robinul. HR up to 100-110's; ST. SBP up to 140-160's with care. CHG bath provided.
--- NOTE | 2024-01-10 17:03 | PN.CDI ---
CDI
- -
CDI:
Physician Documentation Request
Admit Date: 01/07/24 17:57
Dear Doctor,
Please review the following and provide your response in the progress notes.
Clinical Indicators:
Pt admitted with out of hospital cardiac arrest suspected to be 2/2 cardiac arrhythmia/Pt is intubated
Neurology note 01/08, ' anoxic brain injury s/p cardiac arrest.....Repeat HCT showed:Findings consistent with diffuse cytotoxic edema reflecting hypoxic-ischemic encephalopathy, with supratentorial and infratentorial brain swelling...'
Neurology note 01/09, ' (Unresponsive)...Attention Span & Concentration: Unresponsive to Verbal Stimuli and Unresponsive to Physical Stimuli..Left Eye: Pupillary Size Unremarkable, Unreactive and Unable to Assess Visual [place] Cranial Nerve II:
Right Eye: Pupillary Size Unremarkable, Unreactive and Unable to Assess Visual Gonzalez..'
EEG 01/08 ,' Of what was visible, no clear seizure activity was seen. The study is consistent with severe diffuse cerebral dysfunction..'
Progress note 01/09, ' intubated Off sedation Pupils not reactive No corneal reflex No cough prophylax with suctioning...Clonus noted....(pupils equal 3mm unresponsive to light; absent corneal reflex)...Neuro: Other (no cough or gag reflex with deep
suctioning; absent corneal reflex; decerebrate posturing; +clonus bilaterally); ...'
Patient care note 01/08 @ 1999,' 1900 unresponsive, intubated. pt has no gag, no corneals, pt has began posturing on day shift....'
Patient care note 01/09 @ 1633, ' Patient remains unresponsive. Posturing.'
Please provide a diagnosis for the above findings :
Coma
Unconscious
Anoxic Brain injury only
Other ( please specify)
Use of terms such as suspected, likely, concern for, or probable (associated with a specific diagnosis that is being evaluated, monitored, or treated as if it exists) are acceptable and can be coded in the inpatient setting, when documented at the
time of discharge.
Thank you,
Anabel Garcia RN
CDI Specialist
[facility]
Please use your independent medical judgment in providing your response.
[2024-01-10 17:14] LABS: Blood Urea Nitrogen 17 mg/dl (9-20); Calcium 8.6 mg/dl (8.4-10.2); Carbon Dioxide 21 mmol/L (22-30); Chloride 114 mmol/L (98-107); Estimated Creatinine Clearance 118 ml/min; Glucose 88 mg/dl (70-99); Magnesium 2.1 mg/dl (1.6-2.3); Phosphorus 3.7 mg/dl (2.5-4.5); Potassium 4.3 mmol/L (3.5-5.1); Sodium 146 mmol/L (135-145); eGFR > 60.00
[2024-01-10] MEDS: LOPRESSOR 2.5 MG IV (17:22)
[2024-01-10 17:34] LABS: Glucose - Point of Care 82 mg/dl (70-99)
--- NOTE | 2024-01-10 20:00 | PTCARENOTE ---
rec'd patient at 1900. see assessment as documented. Patient unresponsive to all stimuli. Decerebrate. Absent corneal, cough, gag reflexes. Pupils +3mm, nonreactive. NSR on tele monitor. Trace anasarca. +2 sclera edema. Pulses weak, palpable. #7.5
ett, 24cm @ the lip. A/C 500/18/40%/5. Patient overbreathing ventilator. Lung sounds coarse throughout. +BS. NGT to low intermittent suction. No BM. Hall in place for critical I/O's. family updated at bedside. care ongoing.
[2024-01-10 23:23] LABS: Glucose - Point of Care 71 mg/dl (70-99)
--- NOTE | 2024-01-11 | PTCARENOTE ---
pt reassessed. TTM pads removed at 2230. core temp monitored with thermistor essence. pt overbreathing vent, stacking breaths, PRN fent given, gtt increased, see flowsheet. neuro status unchanged. oral care and sxn provided. CHG bath completed. essence
care done. supportive care given to family. GOL updated. care ongoing.
[2024-01-11] MEDS: DIPRIVAN 100 IV ×3 (00:24→09:34)
[2024-01-11] MEDS: HEPARIN 25000 UNITS/250 ML IV ×2 (01:26→17:36)
[2024-01-11] MEDS: SUBLIMAZE 100 IV (01:27)
[2024-01-11] MEDS: CARDENE 200 IV (01:28)
[2024-01-11] MEDS: ZOSYN 50 IV ×4 (01:44→19:28)
--- NOTE | 2024-01-11 01:48 | PTCARENOTE ---
around 0030, noticed SBP increasing to 170s along with tachycardia in 100s. upon neuro exam, noticed R pupil to be dilated to 9mm, remains nonreactive. L pupil remains 3mm, nonreactive. BP increasing. 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 cardene
gtt ordered and initiated upon return from CT to maintain SBP between 140-160, see flowsheet. family updated at bedside. care ongoing.
[2024-01-11] MEDS: TYLENOL ORAL SOLUTION 650 MG TUBE ×3 (04:08→21:47)
[2024-01-11] MEDS: SYNTHROID 175 MCG TUBE (04:30)
[2024-01-11 04:36] LABS: B.E. -4.3 mmol/L; PCO2 33 mmHg (35-48); PO2 162 mmHg (83-108); pH 7.39 (7.35-7.45)
[2024-01-11 04:39] VITALS: BMI 28.7
[2024-01-11] MEDS: LOPRESSOR IV ×4 (04:45→23:59)
[2024-01-11 04:47] LABS: % Basophils 0.5 % (0-2); % Eosinophils 1.3 % (0-6); % Immature Granulocytes 1.2 % (0-0.5); % Lymphocytes 8.5 % (20.5-51.1); % Monocytes 6.6 % (1.7-9.3); % Neutrophils 81.9 % (42.2-75.2); Absolute Basophils 0.1 10^3/uL (0-0.2); Absolute Eosinophils 0.2 10^3/uL (0-0.7); Absolute Immature Granulocytes 0.2 10^3/uL (0-0.05); Absolute Lymphocytes 1.2 10^3/uL (1.2-3.4); Absolute Monocytes 0.9 10^3/uL (0.1-0.6); Absolute Neutrophils 11.1 10^3/uL (1.4-6.5); Hemoglobin 10.1 g/dL (13.0-18.0); Mean Corp Hgb Conc. 34.8 g/dL (33.0-37.0); Mean Corpuscular Hgb 31.8 pg (27.0-31.0); Mean Corpuscular Volume 91.2 fL (80.0-94.0); Mean Platelet Volume 9.2 fL (7.4-10.4); Nucleated Red Blood Cells % 0 % (-); Platelet Count 173 10^3/uL (130-400); Red Blood Cell Count 3.18 10^6/uL (4.70-6.10); White Blood Cell Count 13.5 10^3/uL (4.8-10.8)
[2024-01-11] MEDS: LEVOPHED 250 IV ×2 (04:51→17:37)
[2024-01-11 04:54] LABS: APTT 70.3 Sec (23.4-35.0)
--- NOTE | 2024-01-11 05:19 | PTCARENOTE ---
AM labs sent. cardene gtt titrated off overnight, BP 80s/40s this morning, levo gtt initiated, see flowsheet. R pupil 9mm, L pupil 3mm and nonreactive on 0400 neuro check. otherwise neuro status unchanged. care ongoing.
[2024-01-11 05:54] LABS: ALT (SGPT) 17 U/L (0-50); AST (SGOT) 71 U/L (17-59); Albumin 2.7 g/dl (3.5-5.0); Alkaline Phosphatase 131 U/L (38-126); Blood Urea Nitrogen 14 mg/dl (9-20); Calcium 8.7 mg/dl (8.4-10.2); Carbon Dioxide 20 mmol/L (22-30); Chloride 113 mmol/L (98-107); Estimated Creatinine Clearance 118 ml/min; Glucose 84 mg/dl (70-99); Phosphorus 3.4 mg/dl (2.5-4.5); Potassium 3.6 mmol/L (3.5-5.1); Sodium 147 mmol/L (135-145); Total Bilirubin 1.3 mg/dl (0.2-1.3); eGFR > 60.00
[2024-01-11] MEDS: NOVOLOG FLEXPEN-MODERATE RESISTANCE SC ×3 (05:55→18:00)
[2024-01-11] MEDS: ASPIRIN 300 MG RECTAL (07:13)
[2024-01-11] MEDS: THIAMINE INJECTION 200 MG IV (07:19)
[2024-01-11] MEDS: REFRESH CELLUVISC GEL 1 DROPS BOTH EYES ×2 (07:19→19:28)
[2024-01-11] MEDS: PROTONIX IV 40 MG IV (07:19)
--- NOTE | 2024-01-11 08:00 | PTCARENOTE ---
pt received from previous rn ett to vent- see settings as charted. pt on prop and fent gtts, breathing with the vent, no corneal or gag reflexes noted. right pupil 9 and left 3 both non reactive. right radial ramila zeroed and functioning. levophed
continues to maintain map >65. heparin gtt and ivf continue as per order. left double lumen picc flushes with good blood return. right arm ints intact. lowry draining yellow to parisa urine. turned and repositioned. oral and am care provided. family
at bedside and updated with mds and rn.
--- NOTE | 2024-01-11 08:00 | PTCARENOTE ---
pt received from previous rn ett to vent- see settings as charted. pt on prop and fent gtts, breathing synchronous with the vent, no corneal or gag reflexes noted. right pupil 9 and left 3 both non reactive. right radial ramila zeroed and
functioning. levophed continues to maintain map >65. heparin gtt and ivf continue as per order. left double lumen picc flushes with good blood return. right arm ints intact. lowry draining yellow to parisa urine. turned and repositioned. oral and am
care provided. family at bedside and updated with mds and rn. plan of care discussed with MDs. all safety precautions in place.
--- NOTE | 2024-01-11 08:47 | W.PN.INTV ---
Today's Communication / Plan
Recommendations
We will continue to provide supportive care though the prognosis is poor. Cerebral perfusion study (SPECT) ordered to assess extent of perfusion and discern possible brain . Patient is currently intubated with no sedation and is not responding
to verbal or physical stimuli. Family in contact with [employer] organ donor organization.
Assessment
-
Impression:
-Cardiac arrest/Un-shockable rhythm/PEA
-Intubated Status
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
-Paroxysmal atrial fibrillation
-Aspiration pneumonia
-Hypertension with hypertensive urgency
-Hypothyroidism
-Alcohol dependence
-History of prostate cancer s/p surgery
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
-Peptic ulcer disease/GERD
-Sleep apnea with history of uvuloplasty
-Former smoker
Plan:
-Cardiac arrest/Un-shockable rhythm/PEA: Stable
EKG conducted on 01/07/2024 showed supraventricular tachycardia, low voltage QRS, incomplete right bundle branch block, left anterior fascicular block, inferior infarct (which was cited on or before 04/04/2022), possible anterior lateral infarct.
Echocardiogram conducted on 01/07/2024 showed normal left ventricular size and function. Ejection fraction 60 to 65%. No left ventricular hypertrophy. There is also a dilated right ventricle and normal systolic function. Mild tricuspid
regurgitation.
Troponins peaked at 0.162 on 01/07/2024 and is currently 0.155 on 01/08/2024. Trending downward
Temperature currently at a 97.9F
CT chest was negative for pulmonary embolism
Continuous EEG conducted on 01/08/2024 showed relatively low amplitude, no clear PDR, no clear seizure activity seen
Appreciate neurology input-they recommended minimizing sedation as tolerated for optimal neuro examination. We also plan to obtain an MRI of the brain in the next few days if mental status does not improve for better visualization of injury.
-Intubated Status: Stable
Intubated - not sedated
Vent settings: (S)CMV 500/18/40%/5 with Sp02 at 95%, HR at 91, 18 Breaths per minute
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
Head CT conducted on 01/09/2024 shows findings consistent with diffuse cytotoxic edema reflecting hypoxic ischemic encephalopathy with supratentorial and infratentorial brain swelling. Mass effect results in cerebral sulcal effacement as well as
effacement of the posterior fossa cisterns. There is also a mass effect compressing the aqueduct of Sylvius and fourth ventricle with secondary mild hydrocephalus having developed. No katt herniation identified. No midline shift.
Head CT conducted on 01/11/2024: Stable exam suggesting global hypoxic ischemic injury and possible obstructive hydrocephalus. Prominent appearance of the lateral and third ventricles, similar to prior. Stable appearance of diffuse effacement of the
sulci and gyri compatible with global anoxic injury. Downward herniation of the cerebellar tonsils redemonstrated. There is no intra- or extra-axial mass, hemorrhage, or fluid collection. Visualized paranasal sinuses are free of mucosal disease. No
depressed calvarial fracture.
Pupils no longer reactive - Right Pupil dilated and fixed
No corneal reflex
No cough/gag reflex
Signs of the start of decerebrate posturing
Neurological checks as per unit guideline
Hypertonic saline started to reduce cerebral swelling
Pain management using fentanyl and acetaminophen
Cerebral perfusion study (SPECT)
-Paroxysmal atrial fibrillation: Stable
S/p ablation
Heparin gtt started after neurosurgery assessment cleared him
Pradaxa on hold
[id number] score calculated to be 1
-Aspiration pneumonia: Stable
Chest x-ray conducted on 01/07/2024 showed no evidence of pulmonary embolism. Confluent right lower lobe consolidation likely represents combination of atelectasis and pneumonia. Additional scattered bilateral multifocal pneumonia noted.
X-ray conducted on 01/10/2024 shows No pneumothorax.
Patient currently on Zosyn
-Hypertension with hypertensive urgency: Stable
Nicardipine IV discontinued
Levophed started
-Hypothyroidism: Stable
TSH was low at 0.04 and free T4 was elevated at 2.22 in the emergency department
Follow TSH
-Peptic ulcer disease/GERD
IV Protonix given
DVT prophylaxis-heparin gtt
Stress Ulcer prophylaxis�pantoprazole sodium
FULL CODE STATUS
Subjective Dataa
Subjective Data
Date of Service:
Date of Service: January 11, 2024
Chief Complaint: Topstitcher Zigzag Follow Up
Subjective:
Patient remains intubated. Physical exam is unchanged since yesterday except that right pupil is dilated and fixed.
Review of Systems
General: Unobtainable - Pat Unresp
Objective Data
Data Reviewed
Vital Signs / I&O / Oxygen:
Vital Signs
Temp Pulse Resp BP Pulse Ox
97.9 F 91 18 84/46 95
01/11/24 08:27 01/11/24 08:00 01/11/24 08:00 01/11/24 04:45 01/11/24 08:00
Intake and Output
01/10/24 01/11/24 01/12/24
06:59 06:59 06:59
Intake Total 2697.6 / 2851.9 3326.0 / 3505.7 309.4 / 309.4
Output Total 1400 / 1460 1640 / 1890 350 / 350
Balance 1297.6 / 1391.9 1686.0 / 1615.7 -40.6 / -40.6
SaO2 [A/C] 40
SaO2 95
Physical Exam
General: Other (Patient intubated)
HEENT: Normocephalic and Moist Mucous Membranes
Cardiovascular: Regular Rhythm
Respiratory: Other (Mechanical ventilator sounds heard bilaterally)
GI: Soft, Non Distended and Normal Bowel Sounds
Neurology: Unresponsive
Skin: Other (Trace lower extremity edema bilaterally)
Labs/Micro/Reports
Lab Data
01/11/24 04:25
09/13/24 04:25
Laboratory Results
01/11/24
04:25
APTT 70.3 H
pH 7.39
pCO2 33 L
pO2 162 H
HCO3 20.0 L
O2 Delivery Level
Microbiology
01/08/24 23:50 Endotracheal Gram Stain - Preliminary
--- NOTE | 2024-01-11 08:53 | W.PN.CD ---
Today's Communication / Plan
-
Continue supportive care
Poor overall prognosis
Impression / Plan
-
Cardiac arrest
-cardiac arrest at home - unclear down tome.
-CPR started by police then ACLS by EMS, ROSC achieved then lost en route, ACLS resumed in resuscitation room, ROSC achieved after 3 rounds of epinephrine and high-quality CPR
-PEA arrest -no shock given. 01/07/24
-Unresponsive and intubated requiring mechanical ventilation
-Head CT- negative. CT chest -ve for PE.
-ASA 300mg WA given in resuscitation room
-s/p cooling and rewarmed - had dilated fixed pupil
-Poor prognosis. Withdrawal as per family.
Sinus tach
-sinus tachycardia resolved - on Metoprolol 2.5 mg q6 hr - can increase as needed.
-BP has been labile now requiring pressor support
Abnormal troponin, type unknown
-Expect it to be elevated given CPR
-no concern for ACS
-ECHO showed hyperdynamic LV wall without wall motion abnormalities.
Paroxysmal atrial fibrillation
-Sinus tachycardia on telemetry
-Oral Anticoagulation: Prior to spinal surgery he was on dabigatran 150 mg twice daily
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
-[id number]: Score 1 (HTN) - OK to use rectal ASA. No need for dabigatran.
-DVT prophylaxis as per primary team - On Heparin drip.
Hypertension
-Nicardipine drip - on and off
-Metoprolol 2.5 mg q6h
-Based on brain activity, can consider tube feeds with meds.
Sinus tachycardia, on metoprolol succinate 50 mg in the outpatient setting, note 100 mg caused fatigue
Hypothyroidism on levothyroxine
Prior tonsillar cancer status post resection and XRT
Prior prostate cancer, status post prostatectomy
Former smoker
Physical Exam
Vital Signs/Labs
Vital Signs
Temp Pulse Resp BP Pulse Ox
97.9 F 91 18 84/46 95
01/11/24 08:27 01/11/24 08:00 01/11/24 08:00 01/11/24 04:45 01/11/24 08:00
01/10/24 01/11/24 01/12/24
06:59 06:59 06:59
Actual Weight 207 lb 3.752 oz 205 lb 7.533 oz
01/11/24 04:25
01/11/24 04:25
PT 16.3 Sec (11.4-14.6) H 01/07/24 15:54
INR 1.33 01/07/24 15:54
APTT 70.3 Sec (23.4-35.0) H 01/11/24 04:25
Magnesium 2.0 mg/dl (1.6-2.3) 01/11/24 04:25
Triglycerides 131 mg/dl (10-149) 01/10/24 04:31
LDL Cholesterol, Calc 91 mg/dl 01/08/24 04:11
VLDL Cholesterol, Calc 21 mg/dl (0-30) 01/08/24 04:11
HDL Cholesterol 43 mg/dl 01/08/24 04:11
Free T4 2.22 ng/dl (0.78-2.19) H 01/07/24 16:56
01/08/24 01/09/24 01/10/24
04:11 05:07 04:31
Wgf-H-Rkmerehtdnw Pept 1930 850 368
Physical Exam
Constitutional: No acute distress
Cardiovascular: Rhythm & rate is regular
Respiratory: Other (intubated on ventilator )
GI: Soft
Neuro/Psych: Other (intubated )
Data Reviewed
-
Date of Service: January 11, 2024
EKG: Tracing Personally Visualized and interpreted (sr)
Echo: Tracing Personally Visualized and interpreted
Labs: Labs Reviewed by me
--- NOTE | 2024-01-11 09:16 | W.PN.HOSP.TC ---
Today's Communication/Plan
-
see plan
Assessment / Plan
Assessment / Plan
63yo M with PHM s/p revision cervical surgery on 01/03/[address] ([address] 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
2021, HTN who presented from home to ED [facility] for cardiac arrest 01/06. Per record review, he was recently discharged from [facility] following spinal surgery. Yesterday at home he reported chest/back pain and his found him unresponsive. ACLS by
EMS with ROSC en route to hospital. In ED, found to be in PEA and bicarb x2, calcium, epi x3 administered with continued ACLS, no shocks. ROSC achieved and levophed drip started. Throughout his admission, he has required intermittent cardene drip to
control blood pressures.
#Cardiac arrest
#PEA
#hypertension and hypotension
- Unclear etiology of cardiac arrest, possibly cardiac arrhythmia. Unclear downtime, per previous documentation about 10 minutes.
- On admission, Chest CT w IV contrast negative for PE. Head CT negative for intracranial hemorrhage
- Echo 01/06: EF 60-65%, no regional wall motion abnormalities
- BNP 1930, troponin 0.35 --> 0.162 --> 0.155
- Remains intubated. Continue mechanical ventilation per respiratory
- Hall in situ, clear yellow urine. Adequate UOP. Continue to monitor I&Os.
- Now euthermic. Previously on cooling protocol (initiated at 01/06). S/p rewarming protocol 01/07
- Cardiology following. Has required cardene gtt intermittently to manage hypertension, this is off now. Currently requiring levophed for pressure support.
- Neuro following. EEG consistent with severe diffuse cerebral dysfunction.
- Head CT 01/08 consistent with diffuse cytotoxic edema, hypoxic-ischemic encephalopathy, hydrocephalus.
- Head CT 01/10 overall no significant changes to account for new anisocoria that developed overnight; CT report also notes 'downward herniation of the cerebellar tonsils redemonstrated' when compared to prior head CT.
- Continue serial CMP, CBC
- Continue IVF, electrolyte supplementation prn, rectal aspirin, heparin
- Currently on fentanyl and propofol sedation. Repeat neurological exam without sedation.
-Overall poor prognosis. Progression of physical exam findings (new anisocoria, absent cough/gag with deep suctioning) in combination with EEG and CT findings are not reassuring. Today he is not overbreathing the ventilator which is also new (set
rate 18 breaths/min), however this is in the context of sedation. Can consider repeating physical exam without sedation if family desires to evaluate for brainstem .
- I spoke to patient's and 2 sons at bedside this morning. We discussed new physical exam findings and imaging results, and what these mean in terms of his prognosis. We also discussed sedation and blood pressure management. They are aware that
this his condition is terminal and Ponce's preference would be to donate organs if possible. They are overwhelmed by feeling responsible for deciding the day or time of withdrawing care, and would prefer a clear sign such as being declared brain .
They are also frustrated with certain interactions regarding organ donation. Assured family that our priority is caring for Ponce the way he would want and supporting them.
#paroxysmal afib s/p ablation, PVI 2021
#sinus tachycardia
- Dabigatran reportedly held for about 5 days prior to surgery
- Hold dabigatron
- HR 90s this AM
- Continue to monitor
#Aspiration pneumonia
- Continue zosyn
#Tonsillar cancer s/p radiation and tonsillectomy 2006
#Cervical myelopathy
#S/p C2-C5 laminectomy 07/2023
#Cervical hardware failure, kyphotic deformity, listhesis
#S/p revision cervical surgery with C2-T2 fusion 01/03/24
#KATTY
- Suspect secondary to poor renal perfusion during cardiac arrest
- Cr 1.4 on admission --> 0.7 today
#Daily alcohol use
- Monitor for signs/symptoms of alcohol withdrawal
- Supplement thiamine
#peptic ulcer disease/GERD
#H/o GI bleed
- IV protonix
#Hypothyroidism
- Continue home levothyroxine 200mcg
- TSH 0.04 low, T4 2.22 high. Recheck TSH when stable
#H/o prostate cancer s/p prostatectomy
#Sleep apnea
#s/p uvuloplasty
Code status: full
VTE ppx: heparin
Diet: NPO
Dispo planning: TBD
Anticipated Discharge: > 48 hours
Subjective/Interval History
-
Date of Service: January 11, 2024
Overnight, his pupils were unequal on neuro exam, and stat head CT was obtained which was similar to prior imaging. He remains intubated. Currently on fentanyl 75 mcg/h, propofol 30 mcg/kg/h, norepinephrine 5 mcg/min.
Objective Data
-
Labs:
Laboratory Results
01/11/24 01/11/24
04:25 11:00
WBC 13.5 H
Hgb 10.1 L
Hct 29.0 L
Plt Count 173
APTT 70.3 H Pending
HCO3 20.0 L
Sodium 147 H
Potassium 3.6
Chloride 113 H
Carbon Dioxide 20 L
BUN 14
Creatinine 0.7
Glucose 84
Calcium 8.7
Total Bilirubin 1.3
AST 71 H
ALT 17
Alkaline Phosphatase 131 H
Vital Signs:
Vital Signs
Temp Pulse Resp BP Pulse Ox
97.9 F 91 18 84/46 95
01/11/24 08:27 01/11/24 08:00 01/11/24 08:00 01/11/24 04:45 01/11/24 08:00
I&O
09/04/2201/11/24 01/12/24
06:59 06:59 06:59
Intake Total 2697.6 / 2851.9 3326.0 / 3505.7 439.1 / 439.1
Output Total 1400 / 1460 1640 / 1890 1350 / 1350
Balance 1297.6 / 1391.9 1686.0 / 1615.7 -910.9 / -910.9
Review of Systems
-
Unable to obtain full review of systems at this time due to: Patient Intubation
Physical Exam
-
General: Intubated and Other (+SEDATION)
HEENT: Normocephalic, Atraumatic, Anicteric, Hooks Conjunctivae and Other (pupils UNequal, R 8mm, L 3mm; absent corneal reflex)
Respiratory: Rhonchi and Other (intubated and not initiating spontaneous breaths (ventilator set resp rate 18))
Cardiac: Regular Rhythm and S1/S2
GI: Soft and Nondistended
Genito-urinary: Clear Urine and Hall
Musculoskeletal: No Cyanosis and Other (pitting edema bilateral extremities symmetric)
Skin: Warm, Dry and IV Access / Catheter Site (L arm PICC, R A line)
Neuro: Other (no cough or gag reflex with deep suctioning; absent corneal reflex; unresponsive to painful stimuli); Negative Awake
Data Reviewed
-
Diagnostic Radiology: Image personally visualized and interpreted and Report Reviewed by me
CT Scan: Image personally visualized and interpreted, Report Reviewed by me, Discussed with Physician, Discussed with Nurse and Discussed with Family
Labs: Labs Reviewed by me and Discussed with Physician
--- NOTE | 2024-01-11 10:24 | W.PN.NEURO.1 ---
Today's Communication / Plan
-
-Heparin drip, resume OAC when able, unless withdrawal from care is sought
Neuro Assessment/Plan
Assessment
63 year-old male with cardiac, completed TTM. Down time was approximately 10 mins. 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
-CT Head 01/09/24: Consistent with diffuse cerebral edema
-Continuous EEG 01/09/24: This EEG is abnormal due to the presence of relatively low amplitude activity, no clear posterior dominant rhythm, little variability and muscle artifact obscuring aspects of the recording. Of what was visible, no clear
seizure activity was seen. The study is consistent with severe diffuse cerebral dysfunction, nonspecific in etiology.
I. Cardiac arrest x2, unclear total downtime, presumed to be 10 minutes initially and additional this after arrival to emergency department.
II. Recent C2-C5 hardware repair/laminectomy..
Prognosis for patient is extremely poor based on unreactive EEG and CT of head demonstrating diffuse changes suggestive of edema. Additionally, patient demonstrating pupillary asymmetry suggestive of tonsillar herniation. Patient unchanged after
receiving hypertonic saline
Plan
-Heparin drip, resume OAC when able, unless withdrawal from care is sought
-DVT prophylaxis.
We will follow as needed
Subjective/Objective
Subjective Data
Date of Service: January 11, 2024
Patient unable provide his own medical history.
Objective Data
Vital Signs
Temp Pulse Resp BP Pulse Ox
36.6 C 90 16 84/46 95
01/11/24 08:27 01/11/24 10:00 01/11/24 10:00 01/11/24 04:45 01/11/24 10:00
Lab Results
01/11/24 04:25
01/11/24 04:25
PT 16.3 Sec (11.4-14.6) H 01/07/24 15:54
INR 1.33 01/07/24 15:54
APTT 70.3 Sec (23.4-35.0) H 01/11/24 04:25
Sodium 147 mmol/L (135-145) H 01/11/24 04:25
Potassium 3.6 mmol/L (3.5-5.1) 01/11/24 04:25
BUN 14 mg/dl (9-20) 01/11/24 04:25
Glucose 84 mg/dl (70-99) 01/11/24 04:25
Calcium 8.7 mg/dl (8.4-10.2) 01/11/24 04:25
Phosphorus 3.4 mg/dl (2.5-4.5) 01/11/24 04:25
Pvy-W-Vdwtonskfxn Pept 368 pg/ml 01/10/24 04:31
LDL Cholesterol, Calc 91 mg/dl 01/08/24 04:11
Patient Allergies
No Known Allergies Allergy (Verified 01/07/24 16:30)
Review of Systems
-
Unable to obtain full review of systems at this time due to: Patient Intubation and Other (Unresponsive)
History Source: Patient
All other systems: Reviewed and negative
Physical Exam
-
General: No Apparent Distress and Intubated
Eyes: PERRLA (sluggish)
HEENT: Normocephalic and Atraumatic
Neck: Limited Range of Motion
Respiratory: Other (intubated)
Cardiac: No JVD
GI: Non-distended
Extremities: No Clubbing, No Cyanosis and No Edema
Psych: Unable to Assess
Extended Neurological Exam
Mood & Affect: Unable to Assess
Attention Span & Concentration: Unresponsive to Verbal Stimuli and Unresponsive to Physical Stimuli
Memory: Unable to Assess
Tremor: Hand Tremor Absent and Head Tremor Absent
Involuntary Movement: None
Speech: Unable to Assess
Cranial Nerve II: Left Eye: Pupillary Size Unremarkable, Unreactive, Unable to Assess Visual Gonzalez and Smaller than Contralateral
Cranial Nerve II: Right Eye: Unreactive and Unable to Assess Visual Gonzalez; Negative Pupillary Reactivity Unremarkable (5 mm)
Cranial Nerves III, IV, : Extraocular Movement: Absent Doll's Eyes
Cranial Nerve V: Facial Sensation: Unable to Assess
Cranial Nerve VII: Facial Symmetry: Unable to Assess
Cranial Nerve VIII: Hearing: Unable to Assess
Cranial Nerves IX, X: Palate Movement: Unable to Assess
Cranial Nerve XI: Shoulder Shrug: Unable to Assess
Cranial Nerve XII: Tongue Protusion: Unable to Assess
Muscle Strength, Overall: Negative Spontaneously Moves
Pronator Drift: Unable to Assess
Cold Sensation: Unable to Assess
Vibration Sensation: Unable to Assess
Coordination: Unable to Assess
Gait & Station: Unable to Assess
Data Reviewed
-
Labs: Report Reviewed
Reviewed with: Physician, Nurse and Family (At bedside)
Old Records: Summarized
Past History
Past History
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
ED Past Surgical History: None
Social History
Personal:
Living: with family
Family History
Family History: Other (Reviewed and noncontributory)
Medications
-
Medications:
Generic Name Dose Route Start Last Admin
Trade Name Freq PRN Reason Stop Dose Admin
Acetaminophen 650 mg 01/07/24 19:41
Acetaminophen 650 Mg Rectal Suppository RECTAL 02/04/24 19:40
Q4HPRN PRN
if unable to give via TUBE
Acetaminophen 650 mg 01/07/24 22:00 01/11/24 04:08
Acetaminophen (Oral Solution) 650 Mg/20.3 Ml Cup TUBE 02/04/24 21:59 650 mg
Q6H MARISOL Administration
Aspirin 300 mg 01/08/24 08:00 01/11/24 07:13
Aspirin 300 Mg Rectal Suppository RECTAL 02/05/24 07:59 300 mg
DAILY MARISOL Administration
Carboxymethylcellulose Sodium 1 drops 01/07/24 20:00 01/11/24 07:19
Carboxymethylcellulose Ophth Gel (Celluvisc) Droperette BOTH EYES 02/04/24 19:59 1 drops
BID MARISOL Administration
Fentanyl Citrate 50 mcg 01/10/24 16:00 01/10/24 22:43
Fentanyl (50 Mcg/Ml) 100 Mcg/2 Ml Ampul IV 01/24/24 15:59 50 mcg
[id number] PRN Administration
see protocol
Protocol
Piperacillin Sod/Tazobactam Sod 3.375 gram in 50 mls @ 100 mls/hr 01/07/24 20:00 01/11/24 07:19
Zosyn IV 50 mls
Q6H MARISOL Administration
Heparin Sodium 25,000 units in 250 mls @ 0 mls/hr 01/07/24 19:15 01/11/24 01:26
Heparin 46867 Units/250 Ml IV 250 mls
PER PROTOCOL MARISOL Administration
Protocol
Per Protocol
Sodium Chloride 1,000 mls @ 80 mls/hr 01/07/24 19:41 01/10/24 21:03
Nss IV 1,000 mls
.[id number] MARISOL Administration
Fentanyl Citrate 1,000 mcg in 100 mls @ 0 mls/hr 01/10/24 16:00 01/11/24 01:27
Sublimaze IV 100 mls
PER PROTOCOL MARISOL Administration
Protocol
Per Protocol
Propofol 1,000,000 mcg in 100 mls @ 0 mls/hr 01/10/24 16:00 01/11/24 09:34
Diprivan IV 100 mls
PER PROTOCOL MARISOL Administration
Protocol
Per Protocol
Norepinephrine Bitartrate 4 mg in 250 mls @ 0 mls/hr 01/11/24 04:45 01/11/24 04:51
Levophed IV 250 mls
PER PROTOCOL MARISOL Administration
Protocol
Per Protocol
Insulin Aspart 0 units 01/09/24 12:00 01/11/24 05:55
Insulin Aspart Moderate Resistance 300 Units/3 Ml Pen.Injctr SC 02/06/24 11:59 Not Given
Q6 MARISOL
Protocol
Levothyroxine Sodium 175 mcg 01/10/24 11:00 01/11/24 04:30
Levothyroxine 175 Mcg Tablet TUBE 02/07/24 10:59 175 mcg
DAILY @ 0600 MARISOL Administration
Metoprolol Tartrate 2.5 mg 01/09/24 00:34 01/11/24 04:45
Metoprolol 5 Mg/5 Ml Vial IV 02/06/24 00:33 Not Given
Q6 MARISOL
Pantoprazole Sodium 40 mg 01/08/24 08:00 01/11/24 07:19
Pantoprazole Sodium 40 Mg/10 Ml Vial IV 02/05/24 07:59 40 mg
DAILY MARISOL Administration
Sodium Chloride 0 flush 01/07/24 20:00
Sodium Chloride 0.9% (Flush) Syringe IV 02/04/24 19:59
PER PROTOCOL MARISOL
Thiamine HCl 200 mg 01/08/24 14:00 01/11/24 07:19
Thiamine (100 Mg/Ml) 2 Ml Vial IV 02/05/24 13:59 200 mg
DAILY MARISOL Administration
--- NOTE | 2024-01-11 10:27 | PTCARENOTE ---
fentanyl and propofol gtts on hold per Dr. Preston Haynes
[2024-01-11 10:38] LABS: APTT 69.8 Sec (23.4-35.0)
[2024-01-11] MEDS: TYLENOL ORAL SOLUTION TUBE ×2 (11:13→17:17)
[2024-01-11 11:26] LABS: Glucose - Point of Care 92 mg/dl (70-99)
--- NOTE | 2024-01-11 12:00 | PTCARENOTE ---
assessment unchanged. turned and repositioned.
[2024-01-11] MEDS: NSS 1000 IV ×2 (12:23→19:28)
--- NOTE | 2024-01-11 12:29 | CM ---
CM following re: discharge planning.
Reviewed pt's chart.
Per Rounds meeting, pt remains intubated and not responding to verbal stimuli, continue hemodynamic and respiratory support. Per neurology, prognosis for patient is extremely poor.
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
D/C plan: uncertain at this time and will depend on pt's progress.
CM will follow with discharge plan updates as hospitalization progresses
--- NOTE | 2024-01-11 13:26 | W.PN.UPDATE ---
Update Note
Progress Note Update
63-year-old male presented with cardiac arrest. History obtained from alternate source other providers/medical records. 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 He is
followed by Dr. Robles. He had C2- C5 Laminectomy Dr. Spears at [facility] in July 2023. September 2023 he had tripped and fell. He was wearing a collar at that time. 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 He underwent a revision of the surgery on 01/03/2024. He was on Pradaxa which was on hold after surgery. Yesterday he had some pain in the back and a cough yesterday he took oxycodone and
Zanaflex and lay down. returned shortly and found him unresponsive she called 911. He received 1 round of epinephrine and CPR. ROSC was obtained. En route he became pulseless and received another 3 A of epinephrine and 2 A of bicarb and
calcium with ROSC again. He was intubated/enroute he was in PEA on arrival to the ER.
Seen in the ICU earlier today. Late documentation.
I personally performed a history and physical exam of the patient and discussed management with the resident. I reviewed the resident's note and agree with the documented findings and plan of care HPI/CC.
Intubated
Was on sedation earlier
Pupils right dilated left constricted.Not reactive
# Cardiac arrest-Un shockable rhythm-PEA Arrest
Prehospital EKG with ST depressions. Echo-normal LV size and function. EF 60 to 65%. No LVH. Dilated RV and normal systolic function. Mild TR. Pulmonary pressure 40 mmHg.
Elevated troponin-trended down-
Status post Active temperature control Protocol (ATC)
Continue aspirin
CT chest-negative for PE
EEG with low amplitude and likely variability indicating severe diffuse cerebral dysfunction no seizures
When of sedation - Was Not waking up. He was overbreathing the vent therefore sedation was restarted. Today he is not overbreathing the vent therefore sedation will be stopped and patient will be reevaluated.
Neurology following
#VDRF- no plan for wean
# Hypotension and Hypertension due to Cerebral edema?
# Paroxysmal atrial fibrillation
History of ablation and cardioversion
Continue heparin drip
Hold Pradaxa
# Aspiration pneumonia-continue Zosyn
# Acute kidney injury likely from cardiac arrest- Resolved.
# Revision of cervical spine surgery 01/03/24. Originally had laminectomy C2-C5 July 2023.
# Hypertension-with hypertensive urgency- Hold losartan, Continue metoprolol
# Hypokalemia-replaced
# Hypothyroidism-slightly elevated T4 and suppressed TSH.
# Daily alcohol use(Former heavy alcohol)-Continue thiamine
# History of prostate cancer with history of surgery
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
# Peptic ulcer disease/GERD
# Sleep apnea with history of uvuloplasty
# Ex smoker
# DVT Prophylaxis-Heparin gtt
# Full code
Discussed with ICU team at bedside, discussed with neurology at bedside
Discussed with and other family members at bedside . They have not made a decision. Prognosis is poor.
Dr. Ruiz, our resident had a very detailed conversation with the patient earlier today regarding prognosis. I briefly discussed about neurological recovery with family as well today.
Await Family decision.
CC time 32 min
--- NOTE | 2024-01-11 16:17 | PTCARENOTE ---
Addendum entered by Juliette Pantoja RN 01/11/24 16:20:
sedation remains off.
Original Note:
pt taken for nuc med test at 1430- left pupil now blown size 8 and non reactive, right pupil 8 and non reactive- Dr. Morales notified, pt back up on floor at 1530. neuro assessment unchanged, remains with no gag or corneal reflex.
[2024-01-11 17:54] LABS: Glucose - Point of Care 107 mg/dl (70-99)
[2024-01-11 18:08] LABS: APTT 70.2 Sec (23.4-35.0)
--- NOTE | 2024-01-11 20:00 | PTCARENOTE ---
pt received. assessment as documented. family updated at bedside. neuro status remains unchanged, L pupil 4mm, R pupil 8mm, both nonreactive. levo and heparin gtts infusing through LUE PICC. SR on monitor. #7.5 ETT @ 24, adjusted to [facility].
AC 18/500/5/40%. oral care provided, minimal secretions suctioned. hypoactive BS, NGT to LIS. lowry with increased UOP, IVF restarted. core temp monitoring in place. R radial arterial line leveled and zeroed. care ongoing.
--- NOTE | 2024-01-12 | PTCARENOTE ---
neuro status remains unchanged, pupils nonreactive, L 4mm, R 8mm. oral care provided. pt repositioned q2h. levo gtt continues. care ongoing.
[2024-01-12 00:12] LABS: Glucose - Point of Care 93 mg/dl (70-99)
[2024-01-12] MEDS: NOVOLOG FLEXPEN-MODERATE RESISTANCE SC ×5 (00:41→23:51)
[2024-01-12 00:42] LABS: APTT 86.6 Sec (23.4-35.0)
[2024-01-12] MEDS: ZOSYN 50 IV ×4 (02:12→19:22)
[2024-01-12] MEDS: SYNTHROID 175 MCG TUBE (04:11)
[2024-01-12] MEDS: TYLENOL ORAL SOLUTION 650 MG TUBE ×4 (04:11→21:50)
[2024-01-12] MEDS: LOPRESSOR IV ×4 (04:12→23:09)
[2024-01-12] MEDS: NSS 1000 IV (04:13)
[2024-01-12 04:35] LABS: % Basophils 0.3 % (0-2); % Eosinophils 1.4 % (0-6); % Immature Granulocytes 3.7 % (0-0.5); % Lymphocytes 13.9 % (20.5-51.1); % Monocytes 9.7 % (1.7-9.3); Absolute Eosinophils 0.2 10^3/uL (0-0.7); Absolute Immature Granulocytes 0.5 10^3/uL (0-0.05); Absolute Lymphocytes 1.8 10^3/uL (1.2-3.4); Absolute Monocytes 1.3 10^3/uL (0.1-0.6); Absolute Neutrophils 9.2 10^3/uL (1.4-6.5); Hematocrit 30.5 % (39.0-52.0); Hemoglobin 10.3 g/dL (13.0-18.0); Mean Corp Hgb Conc. 33.8 g/dL (33.0-37.0); Mean Corpuscular Hgb 32.5 pg (27.0-31.0); Mean Corpuscular Volume 96.2 fL (80.0-94.0); Nucleated Red Blood Cells % 0.2 % (-); Platelet Count 195 10^3/uL (130-400); Red Blood Cell Count 3.17 10^6/uL (4.70-6.10); White Blood Cell Count 12.9 10^3/uL (4.8-10.8)
[2024-01-12 04:48] LABS: APTT 80.7 Sec (23.4-35.0)
[2024-01-12] MEDS: LEVOPHED 250 IV ×2 (05:00→16:19)
[2024-01-12] MEDS: HEPARIN 25000 UNITS/250 ML IV ×2 (05:00→19:22)
[2024-01-12 05:14] LABS: ALT (SGPT) 17 U/L (0-50); AST (SGOT) 54 U/L (17-59); Albumin 2.6 g/dl (3.5-5.0); Alkaline Phosphatase 207 U/L (38-126); Blood Urea Nitrogen 7 mg/dl (9-20); Calcium 9.3 mg/dl (8.4-10.2); Carbon Dioxide 23 mmol/L (22-30); Chloride 123 mmol/L (98-107); Estimated Creatinine Clearance 103 ml/min; Glucose 108 mg/dl (70-99); Potassium 3.1 mmol/L (3.5-5.1); Sodium 158 mmol/L (135-145); Total Bilirubin 1.2 mg/dl (0.2-1.3); Total Protein 5.1 g/dl (6.3-8.2); Triglycerides 161 mg/dl (10-149); eGFR > 60.00
[2024-01-12 05:44] VITALS: BMI 27.9
[2024-01-12] MEDS: KCL 100 IV (05:49)
--- NOTE | 2024-01-12 06:12 | PTCARENOTE ---
AM labs sent, Na 158. K repleted this morning. neuro status unchanged. CHG wipes, oral care, lowry care provided. family updated at bedside throughout night. care ongoing.
[2024-01-12] MEDS: REFRESH CELLUVISC GEL 1 DROPS BOTH EYES ×2 (07:34→19:22)
[2024-01-12] MEDS: PROTONIX IV 40 MG IV (07:36)
[2024-01-12] MEDS: THIAMINE INJECTION 200 MG IV (07:38)
--- NOTE | 2024-01-12 07:45 | PTCARENOTE ---
Assumed plan of care. Pt rec'd unresponsive on ventilator. No gag or corneal reflexes noted. (R) pupil 6/nonreactive...(L) pupil 3/nonreactive. Pt does not make any purposeful movements...occasional non purposeful toe movements. S1 S2 reg w/
NSR on monitor. Weak PP. Trace generalized edema....bilateral foot drop. #7.5 ETT 24cm right lip...current vent settings: 18/500/+5/40%...sats 92-96%. Lungs diminished w/ coarse crackles posteriorly....right lung w/ insp wheezing throughout. No
secretions noted. Abdomen round...hypo BS. Right nare [place] -> LIWS. Brownish clear drainage noted. Temperature sensing lowry draining parisa urine. Lowry care done. Skin intact except back of neck w/ well approximated bishnu and dressing from
previous laminectomy. Right radial ramila...flushed and zeroed. (L) DL PICC and multiple INT's w/ NSS, heparin, and levophed gtts infusing...see interventions. VS documented. Emotional support provided to family. Will continue to monitor
closely.
[2024-01-12] MEDS: ASPIRIN 300 MG RECTAL (07:48)
--- NOTE | 2024-01-12 08:13 | W.PN.INTV ---
Today's Communication / Plan
Recommendations
Continue with mechanical ventilation titrating FiO2 + PEEP to keep SpO2 >94%
Start D5W to help bring down serum sodium to goal 145�150
Antibiotics
Aspiration precautions keeping HOB >30-45�
Repeat nuclear brain perfusion scan this Sunday to re-assess for brain
Ultimate goal is organ donation; [facility] following along
Assessment
-
Assessment: 63-year-old male former tobacco smoker (quit 12 years ago) with a PMHx of A-fib on Pradaxa, hypertension, hypothyroidism, history of PUD, sleep apnea, GERD, history of prostate cancer, history of tonsillar cancer and colonic polyps who
presented with [id number]-svylahck cardiac arrest. Patient was at home with , Heather, and he was sitting on the sofa and appeared to be sleeping. She tried seeing if he was awake which he was not, and she called 911 and she performed CPR until
police arrived which was about 6 minutes later and then they took over. He was given epi by EMS with ROSC obtained then brought here to the ER. He recently had a laminectomy a few days [employer] and Pradaxa was held for 5 days prior and had yet to be
resumed. Patient presented to the ER pulseless with CPR started immediately. ROSC obtained after 3 rounds of CPR with epinephrine given, 2 A of bicarb and calcium. Flutter. On EKG s/p ROSC. Prehospital EKG was concerning for diffuse ST
depressions. Therapeutic hypothermia protocol was started and he was transferred to the ICU for further care with intensive services consulted for additional management/recommendations.
Impression:
#Wqg-ip-wuqisdvg cardiac arrest x2 (arrested at home and then while arriving to ER)
#Ventilator dependent respiratory failure
#Hypoxic�ischemic encephalopathy with diffuse cytotoxic edema seen on CT head from 01/09/2024
#Multifocal pneumonia (mainly right-sided) likely due to aspiration
#Dilated right ventricle with normal RV systolic function
#Anemia
#Hypernatremia (mild) s/p hypertonic saline (free water deficit 4.9L with target Na 145)
#Hypomagnesemia - resolved
#Elevated LFTs
#Elevated troponin likely due to demand ischemia with type II [place]
#Pulmonary hypertension (mild with PASP: 40 mmHg assuming an RAP of 3 mmHg via TTE from 01/07/2024)
#History of paroxysmal A-fib on Pradaxa
#Hypothyroidism
#Former tobacco smoker (quit approximately 12 years ago)
Plan:
-Patient reached goal temperature at 2218 on 01/08/2024 --> no longer need to keep core temperature sensing probe in place given it has been >48 hours since reaching normothermia
-Limit sedation if possible to help prognosticate
-EEG shows no seizures with severe diffuse cerebral dysfunction; neurology consulted with recs appreciated
-Hypertonic saline started on 01/08 given diffuse cerebral edema seen on CT head; this portends a very poor prognosis and these results were discussed with the family
- now that serum Na is 158, start D5W to help bring back down to 145-150 range
-[facility] aware of case and once patient declared brain vs withdrawn then they will begin organ donation process
-Neurochecks
- Nuclear brain perfusion scan on 01/11/2024 shows preserved brain flow --> unable to declare brain at this time, in addition he was on fentanyl gtt and given its effects which can be prolonged with drips, we are unable to do apnea breath test
at this time either. Repeat nuclear brain perfusion scan this upcoming Sunday to re-assess for brain
-Continue mechanical ventilation with no plans for SBT unless he awakens
-Titrate FiO2 + PEEP to maintain SpO2 >94%
-Keep peak pressures <30
-Frequent suctioning as needed
- Continue with broad-spectrum antibiotics - currently on Zosyn since evening of 01/07/2024
- Would give 7-10 days of ABx total
- Check sputum Cx - growing GNR with moderate budding yeast
- Trend WBC
- Avoid fever at all costs given his cardiac arrest with poor neurological recovery
- Continue with tylenol q6hr for now given low-grade fevers overnight into this AM
-Transfuse blood products as needed to keep Hb >8, plt>20k
-Replete K>4, Mg>2
-MAP>65
- Start D5W to lower serum Na to goal 145; DC NS 0.9%
-Trend LFTs
-No longer need to trend troponin given it peaked at 0.162 on 01/07/2024
-Continue with heparin drip given elevated troponin with possible cardiac etiology of cardiac arrest
-Stress ulcer prophylaxis: PPI
-DVT ppx: heparin gtt
-Guarded prognosis; emotional support provided to the family
-Patient is an organ donor and once patient is declared brain then we can start organ donation process. Otherwise if family decides to withdraw care, he will be an organ donor after circulatory arrest
Continue ICU level care for this critically ill patient.
Critical care statement: A total of 38 minutes of critical care time was provided for this patient today. This includes management of unstable vital signs, evaluation of the patient at bedside, reviewing the patient's pertinent medical records
including radiographs, microbiology, laboratory evaluations, and discussion with primary team, consultants, pharmacy, nutrition, physical therapy, case management, charge nurse, critical care nursing, and respiratory therapy.
Subjective Dataa
Subjective Data
Date of Service:
Date of Service: January 12, 2024
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
Subjective:
Patient seen and evaluated today at bedside. Family was at bedside including son's x 2 + . Patient remains unresponsive. Currently on Levophed at 5mcg/min. Pupils remain unreactive. Still with no gag, cough, or corneal reflexes. Not
withdrawing to pain. Currently intubated on AC/VC at 18/500/55%/5, with PIP: 27 cmH2O, VTe 476mL and breathing at 18 breaths/min. Serum sodium today 158. Currently saturating 93%, heart rate 95 and BP 102/55. Spiked fever overnight to 100.7 �F
Review of Systems
General: Unobtainable - Pat Unresp
Objective Data
Data Reviewed
Vital Signs / I&O / Oxygen:
Vital Signs
Temp Pulse Resp BP Pulse Ox
100.7 F H 93 13 104/54 94
01/12/24 03:10 01/12/24 06:00 01/12/24 06:00 01/11/24 23:59 01/12/24 07:23
Intake and Output
01/11/24 01/12/24 01/13/24
06:59 06:59 06:59
Intake Total 3326.0 / 3505.7 3288.9 / 3288.9
Output Total 1640 / 1890 6506 / 6506
Balance 1686.0 / 1615.7 -3217.1 / -3217.1
SaO2 [A/C] 94
SaO2 94
Physical Exam
General: Respiratory Distress (negative), Chills (negative) and Sweats (negative)
HEENT: Normocephalic, Anicteric, Moist Mucous Membranes and Other (ETT in place)
Cardiovascular: S1-S2 and Peripheral Edema (trace LE edema b/l)
Respiratory: Wheeze (negative), Rhonchi (negative), ET Tube and Other (Mechanical/coarse ventilator sounds heard bilaterally)
GI: Soft, Non Distended, Normal Bowel Sounds and NG Tube (DHT)
Neurology: Tremors (negative), Unresponsive and Other (Absent gag, absent cough and absent corneal reflexes; absent pupillary reflexes b/l with right eye +5, left eye +3; absent withdrawal to pain stimuli in all extremities; not breathing above
ventilator)
Skin: Warm, Dry, Jaundice (negative) and Other (Trace lower extremity edema bilaterally)
Labs/Micro/Reports
Lab Data
01/12/24 04:19
01/12/24 04:19
Laboratory Results
01/11/24 01/11/24 01/12/24
10:18 17:44 00:20
APTT 69.8 H 70.2 H 86.6 H
01/12/24
04:19
APTT 80.7 H
Microbiology
01/08/24 23:50 Endotracheal Respiratory Culture - Preliminary
Gram negative bacilli
01/08/24 23:50 Endotracheal Gram Stain - Preliminary
--- NOTE | 2024-01-12 08:49 | W.PN.HOSP.TC ---
Addendum entered and electronically signed by Iraj Islas MD 01/12/24 16:25:
I saw and evaluated the patient. I reviewed the resident�s note and agree with findings and plan as documented in the resident�s note.
Patient remains on ventilator and unresponsive off sedation.
No clinically meaningful neurological recovery on exam today.
Spiking fever overnight. T max 100.7 F
1. S/p cardiac arrest -PEA
Ventilator dependent respiratory failure
Elevated troponin
-Reason for PEA arrest remains unclear, patient was found unresponsive by spouse.
-CT chest PE ruled out any PE
-Patient underwent TTM protocol
-Admission EKG showing incomplete right bundle branch/left anterior fascicular block, supraventricular tachycardia. Question of possible ACS, maintain on empiric heparin drip
-Echocardiogram showing ejection fraction 60 to 65%. Dilated RV with normal systolic function. Mild TR. Pulmonary artery pressure of 40 mmHg
2. Anoxic brain injury
Transtentorial herniation/cerebellar tonsil herniation
Obstructive hydrocephalus
-Initial CT head showing diffuse cytotoxic edema and hydrocephalus
-Repeat CT scan showing similar findings with transtentorial herniation and cerebellar tonsillar herniation
-Patient have unequal pupil with right dilated mydriatic pupil
-Brain perfusion scan showing blood flow to brain ruling out brain
-EEG showing diffuse cerebral dysfunction
-Plan for repeat brain perfusion scan on Sunday.
3. Paroxysmal atrial fibrillation status post ablation/PVI
-Patient underwent lumbar laminectomy and defecated and was reportedly held
-Currently on heparin drip postcardiac arrest
-Some sinus tachycardia, continue monitoring
4. Acute hypernatremia
-Patient was getting 3% NS as part of treatment for cerebral edema
-Patient sodium 158 today
-Patient been started on slow D5 water to correct hypernatremia, discussed with liquor merchant
5. Aspiration pneumonia
- maintain on empiric zosyn at this point
-Patient continues to have high-grade fever. Possible central thermal dysregulation also contributing to fever.
C2-C5 laminectomy in August 21
Revision cervical spinal surgery on 01/03/24
Hypothyroidism
Alcohol use disorder
Gastroesophageal reflux disease
History of peptic ulcer disease
History of GI bleed
History of prostate cancer status post prostatectomy
Obstructive sleep apnea
Full code
Critical care time : 45 mins
Patient prognosis remains grim at this point. Despite maximal medical therapy patient have signs of advanced anoxic brain injury and imaging showing brain herniation. Had a lengthy discussion with family at bedside and patient family hesitant of
withdrawing care. I felt that patient family would have agreed for withdrawal care if we could have proved that patient is brain-, unfortunately that is not the case. Spouse is concerned about patient having possible discomfort/tachypnea and
withdrawal of care as well. Discussed possible attempt at apnea testing although patient was given fentanyl with a long half-life and cannot be done at this point per liquor merchant. Plan remains of possible repeat perfusion scan on Sunday to help
further guide family regarding withdrawal of care decision.
Original Note:
Today's Communication/Plan
-
see plan
Assessment / Plan
Assessment / Plan
63yo M with PHM s/p revision cervical surgery on 01/03/24 (with Dr[address] Tamayo at [facility]), tonsillar cancer s/p radiation and tonsillectomy, afib previously on dabigatron (discontinued ~5 days prior to surgery) s/p PVI 2021, HTN who presented from
home to ED [facility] for cardiac arrest 01/06. Per record review, he was recently discharged from [facility] following spinal surgery. At home he reported chest/back pain and his found him unresponsive. ACLS by EMS with ROSC en route to hospital. In
ED, found to be in PEA and bicarb x2, calcium, epi x3 administered with continued ACLS, no shocks. ROSC achieved and levophed drip started. Throughout his admission, he has required intermittent cardene drip to control blood pressures.
#Cardiac arrest
#PEA
#hypertension and hypotension
- Unclear etiology of cardiac arrest, possibly cardiac arrhythmia. Unclear downtime, per previous documentation about 10 minutes.
- On admission, Chest CT w IV contrast negative for PE. Head CT negative for intracranial hemorrhage
- Echo 01/06: EF 60-65%, no regional wall motion abnormalities
- BNP 1930, troponin 0.35 --> 0.162 --> 0.155
- Remains intubated. Continue mechanical ventilation per respiratory
- Hall in situ, clear yellow urine. Adequate UOP. Continue to monitor I&Os.
- Previously on cooling protocol (initiated at 01/06). S/p rewarming protocol 01/07 --> euthermic.
- Febrile overnight. Tmax/most recent: 100.7 @ 0310 01/11. Now 100.2 @ 0800 01/11. Continue tylenol, zosyn. Continue to follow temperature trend.
- Cardiology following. Has required cardene gtt intermittently to manage hypertension, this is off now. Currently requiring levophed for pressure support.
- Neuro following. EEG consistent with severe diffuse cerebral dysfunction.
- Head CT 01/08 consistent with diffuse cytotoxic edema, hypoxic-ischemic encephalopathy, hydrocephalus.
- Head CT 01/10 overall no significant changes to account for new anisocoria that developed overnight; CT report also notes 'downward herniation of the cerebellar tonsils redemonstrated' when compared to prior head CT.
- Nuclear medicine brain scan 01/10 indicates blood flow to brain.
- Continue serial CMP, CBC, neurological exams
- Continue IVF, electrolyte supplementation prn, rectal aspirin, heparin
- Sedation discontinued 01/10. Avoid fentanyl and propofol if appropriate, to accurately assess neurologic function. Not eligible for apnea test at this time.
- Overall poor prognosis. Progression of physical exam findings (new anisocoria 01/10, absent cough/gag with deep suctioning) in combination with EEG and CT findings are not reassuring. As of 01/10 he is not overbreathing the ventilator (set rate 18
breaths/min), however this is in the context of recent sedation which has not had sufficient washout time. The nuclear nuclear medicine brain scan 01/10 indicates that there is perfusion to brain tissue, which is neither evidence for nor against a
diagnosis of brain .
- I spoke to patient's and 2 sons at bedside 01/10 morning. We discussed new physical exam findings and imaging results, and what these mean in terms of his prognosis. We also discussed sedation and blood pressure management. They are aware that
this his condition is terminal and Ponce's preference would be to donate organs if possible. They are overwhelmed by feeling responsible for deciding the day or time of withdrawing care, and would prefer a clear sign such as being declared brain .
They are also frustrated with certain interactions regarding organ donation. Assured family that our priority is caring for Ponce the way he would want and supporting them.
- Again spoke with family this AM and reviewed new result from the perfusion scan. At this time they would like to repeat perfusion scan on Sunday to check if there is any 'brain activity.' I clarified with them that this scan shows blood flow to
brain, but not brain activity. They are generally realistic though have a slim hope that brain activity will improve. We again discussed EEG results and CT findings of cerebral edema and herniation, and overall prognosis. Also reviewed that he is
not a candidate for an apnea test because of his recent sedation. Support provided to family. Discussed with liquor merchant, neurology, nursing
#paroxysmal afib s/p ablation, PVI 2021
#sinus tachycardia
- Dabigatran reportedly held for about 5 days prior to surgery
- Hold dabigatron
- HR 90s this AM
- Continue to monitor
#Aspiration pneumonia
- Continue zosyn
- Tmax 100.7
#Tonsillar cancer s/p radiation and tonsillectomy 2006
#Cervical myelopathy
#S/p C2-C5 laminectomy 07/2023
#Cervical hardware failure, kyphotic deformity, listhesis
#S/p revision cervical surgery with C2-T2 fusion 01/03/24
#KATTY
- Suspect secondary to poor renal perfusion during cardiac arrest
- Cr 1.4 on admission --> 0.7 today
#Daily alcohol use
- Monitor for signs/symptoms of alcohol withdrawal
- Supplement thiamine
#peptic ulcer disease/GERD
#H/o GI bleed
- IV protonix
#Hypothyroidism
- Continue home levothyroxine 200mcg
- TSH 0.04 low, T4 2.22 high. Recheck TSH when stable
#H/o prostate cancer s/p prostatectomy
#Sleep apnea
#s/p uvuloplasty
Code status: full
VTE ppx: heparin
Diet: NPO
Dispo planning: TBD
Anticipated Discharge: > 48 hours
Subjective/Interval History
-
Date of Service: January 12, 2024
Overnight, febrile to 100.7. He remains intubated, not on sedation. Still on norepinephrine gtt 5mcg/min.
Objective Data
-
Labs:
Laboratory Results
01/12/24 01/12/24
00:20 04:19
WBC 12.9 H
Hgb 10.3 L
Hct 30.5 L
Plt Count 195
APTT 86.6 H 80.7 H
Sodium 158 H D
Potassium 3.1 L
Chloride 123 H
Carbon Dioxide 23
BUN 7 L
Creatinine 0.8
Glucose 108 H
Calcium 9.3
Total Bilirubin 1.2
AST 54
ALT 17
Alkaline Phosphatase 207 H
Vital Signs:
Vital Signs
Temp Pulse Resp BP Pulse Ox
100.7 F H 93 13 104/54 94
01/12/24 03:10 01/12/24 06:00 01/12/24 06:00 01/11/24 23:59 01/12/24 07:23
I&O
01/11/24 01/12/24 01/13/24
06:59 06:59 06:59
Intake Total 3326.0 / 3505.7 3288.9 / 3288.9
Output Total 1640 / 1890 6506 / 6506
Balance 1686.0 / 1615.7 -3217.1 / -3217.1
Review of Systems
-
Unable to obtain full review of systems at this time due to: Patient Intubation
Physical Exam
-
General: Intubated
HEENT: Normocephalic, Atraumatic, Anicteric, [place] Conjunctivae and Other (pupils UNequal, R 8mm, L 4mm; pupils unresponsive to light; absent corneal reflex)
Respiratory: Rhonchi (throughout posterior lung oneal, R > L) and Other (intubated and not initiating spontaneous breaths (ventilator set resp rate 18))
Cardiac: Regular Rhythm and S1/S2
GI: Soft and Nondistended
Genito-urinary: Clear Urine and Hall
Musculoskeletal: No Cyanosis and Other (pitting edema bilateral extremities symmetric)
Skin: Warm, Dry and IV Access / Catheter Site (L arm PICC, R A line)
Neuro: Other (no cough or gag reflex with deep suctioning; pupils unresponsive to light, absent corneal reflex; unresponsive to painful stimuli, sternal rub; occasional non-purposeful dorsiflexion of toes); Negative Awake
Data Reviewed
-
CT Scan: Image personally visualized and interpreted, Report Reviewed by me, Discussed with Physician, Discussed with Nurse and Discussed with Family
Medical Tests (Nuc Med, Echo etc): Image personally visualized and interpreted, Report Reviewed by me, Discussed with Physician, Discussed with Nurse and Discussed with Family
Labs: Labs Reviewed by me, Discussed with Physician, Discussed with Nurse and Discussed with Family
[2024-01-12] MEDS: KCL ELIXIR 40 MEQ TUBE (11:15)
[2024-01-12] MEDS: D5W 1000 IV ×2 (11:15→23:47)
--- NOTE | 2024-01-12 11:29 | W.PN.NEURO.1 ---
Today's Communication / Plan
-
-Heparin drip, resume OAC when able, unless withdrawal from care is sought
Neuro Assessment/Plan
Assessment
63 year-old male with cardiac, completed TTM. Down time was approximately 10 mins. 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
CT Head 01/09/24: diffuse cerebral edema
Continuous EEG 01/09/24: no clear posterior dominant rhythm, little variability and muscle artifact obscuring aspects of the recording. Of what was visible, no clear seizure activity was seen. The study is consistent with severe diffuse cerebral
dysfunction, nonspecific in etiology.
I. Cardiac arrest x2, unclear total downtime, presumed to be 10 minutes initially and additional this after arrival to emergency department.
II. Recent C2-C5 hardware repair/laminectomy
Prognosis for patient is extremely poor based on unreactive EEG and CT of head demonstrating diffuse changes suggestive of edema. Additionally, patient demonstrating pupillary asymmetry suggestive of tonsillar herniation. Patient unchanged after
receiving hypertonic saline
Plan
-Heparin drip, resume OAC when able, unless withdrawal from care is sought
-DVT prophylaxis.
We will follow as needed
Subjective/Objective
Subjective Data
Date of Service: January 12, 2024
Objective Data
Vital Signs
Temp Pulse Resp BP Pulse Ox
37.9 C 91 18 104/54 96
01/12/24 08:00 01/12/24 09:30 01/12/24 09:30 01/11/24 23:59 01/12/24 11:07
Lab Results
01/12/24 04:19
PT 16.3 Sec (11.4-14.6) H 01/07/24 15:54
INR 1.33 01/07/24 15:54
APTT 80.7 Sec (23.4-35.0) H 01/12/24 04:19
Sodium 158 mmol/L (135-145) H D 01/12/24 04:19
Potassium 3.1 mmol/L (3.5-5.1) L 01/12/24 04:19
BUN 7 mg/dl (9-20) L 01/12/24 04:19
Glucose 108 mg/dl (70-99) H 01/12/24 04:19
Calcium 9.3 mg/dl (8.4-10.2) 01/12/24 04:19
Phosphorus 3.4 mg/dl (2.5-4.5) 01/11/24 04:25
Nze-S-Hbyykbxsppe Pept 368 pg/ml 01/10/24 04:31
LDL Cholesterol, Calc 91 mg/dl 01/08/24 04:11
Patient Allergies
No Known Allergies Allergy (Verified 01/07/24 16:30)
Data Reviewed
-
Labs: Report Reviewed
Past History
Past History
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
ED Past Surgical History: None
Social History
Personal:
Living: with family
Family History
Family History: Other (Reviewed and noncontributory)
Medications
-
Medications:
Generic Name Dose Route Start Last Admin
Trade Name Freq PRN Reason Stop Dose Admin
Acetaminophen 650 mg 01/07/24 19:41
Acetaminophen 650 Mg Rectal Suppository RECTAL 02/04/24 19:40
Q4HPRN PRN
if unable to give via TUBE
Acetaminophen 650 mg 01/07/24 22:00 01/12/24 09:22
Acetaminophen (Oral Solution) 650 Mg/20.3 Ml Cup TUBE 02/04/24 21:59 650 mg
Q6H MARISOL Administration
Aspirin 300 mg 01/08/24 08:00 01/12/24 07:48
Aspirin 300 Mg Rectal Suppository RECTAL 02/05/24 07:59 300 mg
DAILY MARISOL Administration
Carboxymethylcellulose Sodium 1 drops 01/07/24 20:00 01/12/24 07:34
Carboxymethylcellulose Ophth Gel (Celluvisc) Droperette BOTH EYES 02/04/24 19:59 1 drops
BID MARISOL Administration
Piperacillin Sod/Tazobactam Sod 3.375 gram in 50 mls @ 100 mls/hr 01/07/24 20:00 01/12/24 07:47
Zosyn IV 50 mls
Q6H MARISOL Administration
Norepinephrine Bitartrate 4 mg in 250 mls @ 0 mls/hr 01/11/24 04:45 01/12/24 05:00
Levophed IV 250 mls
PER PROTOCOL MARISOL Administration
Protocol
Per Protocol
Heparin Sodium 25,000 units in 250 mls @ 0 mls/hr 01/11/24 18:30 01/12/24 05:00
Heparin 27753 Units/250 Ml IV 250 mls
PER PROTOCOL MARISOL Administration
Protocol
Per Protocol
Sodium Chloride 1,000 mls @ 100 mls/hr 01/11/24 19:15 01/12/24 04:13
Nss IV 1,000 mls
.Q10H MARISOL Administration
Dextrose 1,000 mls @ 75 mls/hr 01/12/24 11:00 01/12/24 11:15
D5w IV 1,000 mls
.[id number] MARISOL Administration
Insulin Aspart 0 units 01/09/24 12:00 01/12/24 11:20
Insulin Aspart Moderate Resistance 300 Units/3 Ml Pen.Injctr SC 02/06/24 11:59 Not Given
Q6 MARISOL
Protocol
Levothyroxine Sodium 175 mcg 01/10/24 11:00 01/12/24 04:11
Levothyroxine 175 Mcg Tablet TUBE 02/07/24 10:59 175 mcg
DAILY @ 0600 MARISOL Administration
Metoprolol Tartrate 2.5 mg 01/09/24 00:34 01/12/24 11:10
Metoprolol 5 Mg/5 Ml Vial IV 02/06/24 00:33 Not Given
Q6 MARISOL
Pantoprazole Sodium 40 mg 01/08/24 08:00 01/12/24 07:36
Pantoprazole Sodium 40 Mg/10 Ml Vial IV 02/05/24 07:59 40 mg
DAILY MARISOL Administration
Sodium Chloride 0 flush 01/07/24 20:00
Sodium Chloride 0.9% (Flush) Syringe IV 02/04/24 19:59
PER PROTOCOL MARISOL
Thiamine HCl 200 mg 01/08/24 14:00 01/12/24 07:38
Thiamine (100 Mg/Ml) 2 Ml Vial IV 02/05/24 13:59 200 mg
DAILY MARISOL Administration
[2024-01-12 11:31] LABS: Glucose - Point of Care 95 mg/dl (70-99)
--- NOTE | 2024-01-12 12:00 | PTCARENOTE ---
Pt remains intubated on ventilator. FIO2 increased to 55%...pt desated to 87% while lying flat. Sats currently 94% after increase in FIO2. ETT moved to left side of mouth. Remains on levophed gtt..currently @ 6mcg to maintain MAP > 65. IVF's
changed to D5W @ 75ml/hr per MD orders. Dolls eyes noted at noon assessment...(R) pupil 6/nonreactive...(L) pupil 3-4/nonreactive. Will continue to monitor closely.
--- NOTE | 2024-01-12 13:40 | PTCARENOTE ---
Extensive conversation w/ family...all questions answered and emotional support provided. Reviewed that nursing care and that GOL's focus is different. Reinforced that nursing's first priority is the patient, patient care and family support.
--- NOTE | 2024-01-12 14:40 | PTCARENOTE ---
Pt desats when right lung is down w/ repositioning...low sat of 80% noted. Sats improved to 92-94% after repositioning completed. Will continue to monitor closely.
--- NOTE | 2024-01-12 16:00 | PTCARENOTE ---
No major changes in assessment since previous documentation. Sats 95%. VS documented. Will continue to monitor.
--- NOTE | 2024-01-12 16:21 | CHAP ---
Met with family members at bedside - emotional and spiritual support provided. , Tiffanie, is emotionally strong, but feels the weight of so much stress. Assurance of fast food sales assistant's on-going availability given.
--- NOTE | 2024-01-12 16:31 | W.PN.UPDATE ---
Update Note
Progress Note Update
Chart reviewed, no cardiac recommendations for now. Reviewed with Dr Islas, happy to return to care if patient prognosis changess or clinical question arises.
[2024-01-12 17:32] LABS: Blood Urea Nitrogen 4 mg/dl (9-20); Calcium 8.8 mg/dl (8.4-10.2); Carbon Dioxide 24 mmol/L (22-30); Chloride 124 mmol/L (98-107); Estimated Creatinine Clearance 103 ml/min; Glucose 145 mg/dl (70-99); Potassium 3.6 mmol/L (3.5-5.1); Sodium 156 mmol/L (135-145); eGFR > 60.00
[2024-01-12 18:08] LABS: Glucose - Point of Care 137 mg/dl (70-99)
[2024-01-13 00:03] LABS: Glucose - Point of Care 134 mg/dl (70-99)
[2024-01-13] MEDS: ZOSYN 50 IV ×4 (01:49→20:27)
[2024-01-13] MEDS: LEVOPHED 250 IV ×2 (04:01→17:50)
[2024-01-13] MEDS: SYNTHROID 175 MCG TUBE (04:01)
[2024-01-13] MEDS: TYLENOL ORAL SOLUTION 650 MG TUBE ×4 (04:01→21:09)
[2024-01-13] MEDS: LOPRESSOR IV ×3 (04:01→17:35)
[2024-01-13 04:27] LABS: B.E. 5.4 mmol/L; HCO3 28.9 mmol/L (21-28); Hematocrit 30.8 % (39.0-52.0); Hemoglobin 10.4 g/dL (13.0-18.0); Mean Corp Hgb Conc. 33.8 g/dL (33.0-37.0); Mean Corpuscular Hgb 31.7 pg (27.0-31.0); Mean Corpuscular Volume 93.9 fL (80.0-94.0); Mean Platelet Volume 9.1 fL (7.4-10.4); O2 Saturation % 98.6 % (94-98); PCO2 37 mmHg (35-48); PO2 75 mmHg (83-108); Platelet Count 177 10^3/uL (130-400); Red Blood Cell Count 3.28 10^6/uL (4.70-6.10); Red Cell Dist. Width 14.4 % (11.5-14.5); White Blood Cell Count 14.3 10^3/uL (4.8-10.8)
[2024-01-13 04:44] LABS: APTT 98.5 Sec (23.4-35.0)
[2024-01-13 05:15] VITALS: BMI 27.3
--- NOTE | 2024-01-13 05:23 | PTCARENOTE ---
AM labs sent. pt with decerebrate posturing when stimulating patient. pupils remains unequal and nonreactive. levo, heparin, IVF continue. BM x2 overnight, CHG wipes, lowry care, oral care provided. care ongoing.
[2024-01-13 05:36] LABS: ALT (SGPT) 19 U/L (0-50); AST (SGOT) 49 U/L (17-59); Albumin 2.7 g/dl (3.5-5.0); Alkaline Phosphatase 179 U/L (38-126); Blood Urea Nitrogen 3 mg/dl (9-20); Calcium 8.8 mg/dl (8.4-10.2); Carbon Dioxide 27 mmol/L (22-30); Chloride 122 mmol/L (98-107); Estimated Creatinine Clearance 118 ml/min; Glucose 152 mg/dl (70-99); Magnesium 1.9 mg/dl (1.6-2.3); Phosphorus 2.9 mg/dl (2.5-4.5); Potassium 3.1 mmol/L (3.5-5.1); Sodium 156 mmol/L (135-145); Total Bilirubin 1.1 mg/dl (0.2-1.3); Total Protein 5.1 g/dl (6.3-8.2); Triglycerides 172 mg/dl (10-149); eGFR > 60.00
[2024-01-13] MEDS: NOVOLOG FLEXPEN-MODERATE RESISTANCE 1 UNITS SC (05:59)
[2024-01-13] MEDS: KCL 100 IV (05:59)
[2024-01-13] MEDS: REFRESH CELLUVISC GEL 1 DROPS BOTH EYES ×2 (07:06→20:27)
[2024-01-13] MEDS: THIAMINE INJECTION 200 MG IV (07:11)
[2024-01-13] MEDS: PROTONIX IV 40 MG IV (07:14)
[2024-01-13] MEDS: ASPIRIN 300 MG RECTAL (07:17)
--- NOTE | 2024-01-13 07:45 | PTCARENOTE ---
Assumed plan of care. Pt rec'd unresponsive on ventilator. No gag or corneal reflexes noted. (R) pupil 5/nonreactive...(L) pupil 6/nonreactive. Pt does not make any purposeful movements...decorticate posturing noted. S1 S2 reg w/ NSR on
monitor. Weak PP. Trace generalized edema....+2 hand edema (elevated on pillows)...bilateral foot drop. ETT tomlinson replaced by RPT. #7.5 ETT 24cm right lip...current vent settings: 18/500/+5/55%...sats 90-92%...fio2 increased to 60%...will
monitor. Lungs diminished w/ coarse crackles posteriorly....anteriorly clear. No secretions noted. Abdomen round...hypo BS. Right nare [place] -> LIWS. Brownish clear drainage noted. Temperature sensing lowry draining parisa urine. Lowry care
done. Skin intact except back of neck w/ well approximated bishnu and dressing from previous laminectomy. Right radial ramila...flushed and zeroed. (L) DL PICC and multiple INT's w/ NSS, heparin, and levophed gtts infusing...see interventions.
VS documented. Will continue to monitor closely.
--- NOTE | 2024-01-13 08:07 | W.PN.HOSP.TC ---
Addendum entered and electronically signed by Iraj Islas MD 01/13/24 13:51:
I saw and evaluated the patient. I reviewed the resident�s note and agree with findings and plan as documented in the resident�s note.
1. S/p cardiac arrest -PEA
Ventilator dependent respiratory failure
Elevated troponin
-Reason for PEA arrest remains unclear, patient was found unresponsive by spouse.
-CT chest PE ruled out any PE
-Patient underwent TTM protocol
-Admission EKG showing incomplete right bundle branch/left anterior fascicular block, supraventricular tachycardia.
-Echocardiogram showing ejection fraction 60 to 65%. Dilated RV with normal systolic function. Mild TR. Pulmonary artery pressure of 40 mmHg
2. Anoxic brain injury
Transtentorial herniation/cerebellar tonsil herniation
Obstructive hydrocephalus
-Initial CT head showing diffuse cytotoxic edema and hydrocephalus
-Repeat CT scan showing similar findings with transtentorial herniation and cerebellar tonsillar herniation
-Patient have unequal pupil with right dilated mydriatic pupil
-Brain perfusion scan showing blood flow to brain ruling out brain
-EEG showing diffuse cerebral dysfunction
-Plan for repeat brain perfusion scan on Sunday.
3. Paroxysmal atrial fibrillation status post ablation/PVI
-Patient underwent lumbar laminectomy and defecated and was reportedly held
-Currently on heparin drip postcardiac arrest
-Some sinus tachycardia, continue monitoring
-On heparin drip.
4. Acute hypernatremia
-Patient was getting 3% NS as part of treatment for cerebral edema
-Patient been started on slow D5 water to correct hypernatremia
-f/u Na level
5. Aspiration pneumonia - ESBL ecoli
- maintain on empiric zosyn at this point
-Patient continues to have high-grade fever. Possible central thermal dysregulation also contributing to fever.
C2-C5 laminectomy in August 21
Revision cervical spinal surgery on 01/03/24
Hypothyroidism
Alcohol use disorder
Gastroesophageal reflux disease
History of peptic ulcer disease
History of GI bleed
History of prostate cancer status post prostatectomy
Obstructive sleep apnea
Full code
Critical care time : 43 mins
01/11 Patient prognosis remains grim at this point. Despite maximal medical therapy patient have signs of advanced anoxic brain injury and imaging showing brain herniation. Had a lengthy discussion with family at bedside and patient family hesitant
of withdrawing care. I felt that patient family would have agreed for withdrawal care if we could have proved that patient is brain-, unfortunately that is not the case. Spouse is concerned about patient having possible discomfort/tachypnea
and withdrawal of care as well. Discussed possible attempt at apnea testing although patient was given fentanyl with a long half-life and cannot be done at this point per supervisor paper testing. Plan remains of possible repeat perfusion scan on Sunday to
help further guide family regarding withdrawal of care decision.
Original Note:
Today's Communication/Plan
-
see plan
Assessment / Plan
Assessment / Plan
63yo M with PHM s/p revision cervical surgery on 01/03/[address] ([address] Tamayo at [facility]), tonsillar cancer s/p radiation and tonsillectomy, afib previously on dabigatron (discontinued ~5 days prior to surgery) s/p PVI 2021, HTN who presented from
home to ED [facility] for cardiac arrest 01/06. Per record review, he was recently discharged from [facility] following spinal surgery. At home he reported chest/back pain and his found him unresponsive. ACLS by EMS with ROSC en route to hospital. In
ED, found to be in PEA and bicarb x2, calcium, epi x3 administered with continued ACLS, no shocks. ROSC achieved and levophed drip started. Throughout his admission, he has required intermittent cardene drip to control blood pressures.
#Cardiac arrest
#PEA
#hypertension and hypotension
- Unclear etiology of cardiac arrest, possibly cardiac arrhythmia. Unclear downtime, per previous documentation about 10 minutes.
- On admission, Chest CT w IV contrast negative for PE. Head CT negative for intracranial hemorrhage
- Echo 9/9: EF 60-65%, no regional wall motion abnormalities
- BNP 1930, troponin 0.35 --> 0.162 --> 0.155
- Remains intubated. Continue mechanical ventilation per respiratory. RR 18, Vt 500, PEEP +5. FiO2 requirements increasing, now 60% (previously 55%). SpO2 91%.
- Hall in situ, clear parisa urine. Adequate UOP. Continue to monitor I&Os.
- Previously on cooling protocol (initiated at 01/06). S/p rewarming protocol 01/07 --> euthermic.
- Intermittently febrile beginning 01/10 2333. Tmax: 100.7 @ 0310, 1145 01/11. Last febrile to 100.4 @ 1545 01/11. Now 99.1 @ 0745 01/12. Continue tylenol, zosyn. Continue to follow temperature trend.
- Cardiology following. Has required cardene gtt intermittently to manage hypertension, this is off now. Currently requiring levophed for pressure support. Levophed at 5, BP 131/71. HR 80s.
- Neuro following. EEG consistent with severe diffuse cerebral dysfunction.
- Head CT 01/08 consistent with diffuse cytotoxic edema, hypoxic-ischemic encephalopathy, hydrocephalus.
- Head CT 01/10 overall no significant changes to account for new anisocoria that developed overnight; CT report also notes 'downward herniation of the cerebellar tonsils redemonstrated' when compared to prior head CT.
- Nuclear medicine brain scan 01/10 indicates blood flow to brain.
- Continue serial CMP, CBC, neurological exams
- Continue IVF, electrolyte supplementation prn, rectal aspirin, heparin
- Sedation discontinued 01/10. Avoid fentanyl and propofol if appropriate, to accurately assess neurologic function. Not eligible for apnea test at this time.
- Overall poor prognosis. Progression of physical exam findings (new anisocoria 01/10, absent cough/gag with deep suctioning) in combination with EEG and CT findings are not reassuring. As of 01/10 he is not overbreathing the ventilator (set rate 18
breaths/min), however this is in the context of recent sedation which has not had sufficient washout time. The nuclear nuclear medicine brain scan 01/10 indicates that there is perfusion to brain tissue, which is neither evidence for nor against a
diagnosis of brain . Pupils remain unequal, though dilated possibly associated with levophed or endogenous catecholamines; unreactive to light bilaterally. Babinski previously absent, now positive.
- I spoke to patient's and 2 sons at bedside 01/10 AM. We discussed new physical exam findings and imaging results, and what these mean in terms of his prognosis. We also discussed sedation and blood pressure management. They are aware that this
his condition is terminal and Ponce's preference would be to donate organs if possible. They are overwhelmed by feeling responsible for deciding the day or time of withdrawing care, and would prefer a clear sign such as being declared brain . They
are also frustrated with certain interactions regarding organ donation. Assured family that our priority is caring for Ponce the way he would want and supporting them.
- Again spoke with family 01/11 AM and reviewed new result from the perfusion scan. At this time they would like to repeat perfusion scan on Sunday to check if there is any 'brain activity.' I clarified with them that this scan shows blood flow to
brain, but not brain activity. They are generally realistic though have a slim hope that brain activity will improve. We again discussed EEG results and CT findings of cerebral edema and herniation, and overall prognosis. Also reviewed that he is
not a candidate for an apnea test because of his recent sedation. Support provided to family. Discussed with supervisor paper testing, neurology, nursing
#paroxysmal afib s/p ablation, PVI 2021
#sinus tachycardia
- Dabigatran reportedly held for about 5 days prior to surgery
- Hold dabigatron
- HR 80s this AM
- Continue to monitor
#Aspiration pneumonia
- Sputum culture positive for E Coli ESBL
- Continue zosyn
- Tmax 100.7, now afebrile
- Appears improved on daily chest xray
- Not protecting airway, at risk for additional aspiration events
#Hypokalemia
- Serum K 3.1 today
- Continue IV K supplementation prn
#Hypernatremia
- Now on D5W 75ml/h
- Serum Na 156
- Slowly correct
#Tonsillar cancer s/p radiation and tonsillectomy 2006
#Cervical myelopathy
#S/p C2-C5 laminectomy 07/2023
#Cervical hardware failure, kyphotic deformity, listhesis
#S/p revision cervical surgery with C2-T2 fusion 01/03/24
#KATTY
- Suspect secondary to poor renal perfusion during cardiac arrest
- Cr 1.4 on admission --> 0.7 today
#Daily alcohol use
- Monitor for signs/symptoms of alcohol withdrawal
- Supplement thiamine
#peptic ulcer disease/GERD
#H/o GI bleed
- IV protonix
#Hypothyroidism
- Continue home levothyroxine 200mcg
- TSH 0.04 low, T4 2.22 high. Recheck TSH when stable
#H/o prostate cancer s/p prostatectomy
#Sleep apnea
#s/p uvuloplasty
Code status: full
VTE ppx: heparin
Diet: NPO
Dispo planning: TBD
Anticipated Discharge: > 48 hours
Subjective/Interval History
-
Date of Service: January 13, 2024
Overnight, increased FiO2 requirements. He remains intubated, not on sedation. Still on norepinephrine gtt 5mcg/min.
Objective Data
-
Labs:
Laboratory Results
01/13/24
04:20
WBC 14.3 H
Hgb 10.4 L
Hct 30.8 L
Plt Count 177
APTT 98.5 H
HCO3 28.9 H
Sodium 156 H
Potassium 3.1 L
Chloride 122 H
Carbon Dioxide 27
BUN 3 L
Creatinine 0.7
Glucose 152 H
Calcium 8.8
Total Bilirubin 1.1
AST 49
ALT 19
Alkaline Phosphatase 179 H
Vital Signs:
Vital Signs
Temp Pulse Resp BP Pulse Ox
99.3 F 86 18 131/65 91
01/13/24 03:40 01/13/24 06:00 01/13/24 06:00 01/12/24 23:09 01/13/24 07:55
I&O
01/12/24 01/13/24 01/14/24
06:59 06:59 06:59
Intake Total 3288.9 / 3423.7 3145.9 / 3255.7 109.8 / 109.8
Output Total 6506 / 6636 4290 / 4400 110 / 110
Balance -3217.1 / -3212.3 -1144.1 / -1144.3 -0.2 / -0.2
Review of Systems
-
Unable to obtain full review of systems at this time due to: Patient Intubation
Physical Exam
-
General: Intubated
HEENT: Normocephalic, Atraumatic, Anicteric, [place] Conjunctivae and Other (pupils unresponsive to light, R 6-7mm, L 8mm; absent corneal reflex)
Respiratory: Rhonchi (anterior lung oneal L > R) and Other (intubated and not initiating spontaneous breaths (ventilator set resp rate 18))
Cardiac: Regular Rhythm and S1/S2
GI: Soft and Nondistended
Genito-urinary: Clear Urine and Hall
Musculoskeletal: No Cyanosis and Other (1-2+ pitting edema bilateral extremities symmetric)
Skin: Warm, Dry and IV Access / Catheter Site (L arm PICC, R A line)
Neuro: Other (no cough or gag reflex with deep suctioning; pupils unresponsive to light, absent corneal reflex; unresponsive to painful stimuli, sternal rub; occasional non-purposeful movements including diffuse truncal/LE flexion with deep
palpation of abdomen; babinski previously absent, now positive); Negative Awake
Data Reviewed
-
CT Scan: Image personally visualized and interpreted, Report Reviewed by me, Discussed with Physician, Discussed with Nurse and Discussed with Family
Medical Tests (Nuc Med, Echo etc): Image personally visualized and interpreted, Report Reviewed by me, Discussed with Physician, Discussed with Nurse and Discussed with Family
Labs: Labs Reviewed by me, Discussed with Physician, Discussed with Nurse and Discussed with Family
--- NOTE | 2024-01-13 08:12 | W.PN.INTV ---
Today's Communication / Plan
Recommendations
Continue with mechanical ventilation titrating FiO2 + PEEP to keep SpO2 >94%
Start NS 0.9% with dDAVP given central DI; q6hr BMP to avoid over-correction and ultimately goal Na: 145�150
Antibiotics
Aspiration precautions keeping HOB >30-45�
Repeat nuclear brain perfusion scan tomorrow AM to re-assess for brain
Ultimate goal is organ donation; [facility] life following along
Assessment
-
Assessment: 63-year-old male former tobacco smoker (quit 12 years ago) with a PMHx of A-fib on Pradaxa, hypertension, hypothyroidism, history of PUD, sleep apnea, GERD, history of prostate cancer, history of tonsillar cancer and colonic polyps who
presented with [id number]-bzybliaa cardiac arrest. Patient was at home with , Heather, and he was sitting on the sofa and appeared to be sleeping. She tried seeing if he was awake which he was not, and she called 911 and she performed CPR until
police arrived which was about 6 minutes later and then they took over. He was given epi by EMS with ROSC obtained then brought here to the ER. He recently had a laminectomy a few days LAYER OFF and Pradaxa was held for 5 days prior and had yet to be
resumed. Patient presented to the ER pulseless with CPR started immediately. ROSC obtained after 3 rounds of CPR with epinephrine given, 2 A of bicarb and calcium. Flutter. On EKG s/p ROSC. Prehospital EKG was concerning for diffuse ST
depressions. Therapeutic hypothermia protocol was started and he was transferred to the ICU for further care with intensive services consulted for additional management/recommendations.
Impression:
#Pbr-gq-[id number] cardiac arrest x2 (arrested at home and then while arriving to ER)
#Ventilator dependent respiratory failure
#Hypoxic�ischemic encephalopathy with diffuse cytotoxic edema seen on CT head from 01/09/2024
#Multifocal pneumonia (mainly right-sided) likely due to aspiration
#Dilated right ventricle with normal RV systolic function
#Anemia
#Polyuria with hypernatremia and high urine sodium (of note, he is s/p hypertonic saline on 01/08 - 01/09) - due to central arginine vasopressin deficiency/DI
#Hypomagnesemia - resolved
#Elevated LFTs
#Elevated troponin likely due to demand ischemia with type II [place] - peaked at 0.162 on 01/07/2024
#Pulmonary hypertension (mild with PASP: 40 mmHg assuming an RAP of 3 mmHg via TTE from 01/07/2024)
#History of paroxysmal A-fib on Pradaxa
#Hypothyroidism
#Former tobacco smoker (quit approximately 12 years ago)
Plan:
-Patient reached goal temperature at 2218 on 01/08/2024 --> no longer need to keep core temperature sensing probe in place given it has been >48 hours since reaching normothermia
-Limit sedation if possible to help prognosticate
-EEG shows no seizures with severe diffuse cerebral dysfunction; neurology consulted with recs appreciated
-Hypertonic saline started on 01/08 given diffuse cerebral edema seen on CT head; this portends a very poor prognosis and these results were discussed with the family
-D5W initially started to improve serum sodium. Urine sodium checked on 01/13/2024 with urine osmolarity, and the studies are indicative of an osmotic diuresis related to DI as he has had polyuria since 01/10 with UOP>4L per 24 hrs
-Given that the patient is having osmotic diuresis with central diabetes insipidus, change D5W to NS 0.9% and will start vasopressin - will give a low dose with 0.25mcg x1 for now, and trend serum Na q6hr to avoid rapid over-correction; goal Na is
145-150 range
- If serum sodium becomes difficult to correct then consult nephrology
-[facility] aware of case and once patient declared brain vs withdrawn then they will begin organ donation process
-Neurochecks
- Nuclear brain perfusion scan on 01/11/2024 shows preserved brain flow --> unable to declare brain at this time, in addition he was on fentanyl gtt and given its effects which can be prolonged with drips, we are unable to do apnea breath test
at this time either. Repeat nuclear brain perfusion scan tomorrow AM to re-assess for brain
-Continue mechanical ventilation with no plans for SBT given his clinical status
-Titrate FiO2 + PEEP to maintain SpO2 >94%
-Keep peak pressures <30-35
-Frequent suctioning as needed
- Continue with broad-spectrum antibiotics - currently on Zosyn since evening of 01/07/2024
- Would give 7-10 days of ABx total
- Check sputum Cx - grew ESBL-E. coli
- Trend WBC
- Avoid fever at all costs given his cardiac arrest with poor neurological recovery
- Continue with tylenol q6hr for now given continued occasional low-grade fevers
- Transfuse blood products as needed to keep Hb >8, plt>20k
- Replete K>4, Mg>2
- MAP>65
-Trend LFTs
-No longer need to trend troponin given it peaked at 0.162 on 01/07/2024
-Continue with heparin drip given elevated troponin with possible cardiac etiology of cardiac arrest
-Stress ulcer prophylaxis: PPI
-DVT ppx: heparin gtt
-Guarded prognosis; emotional support provided to the family
-Patient is an organ donor and once patient is declared brain then we can start organ donation process. Otherwise if family decides to withdraw care, he will be an organ donor after circulatory arrest
Continue ICU level care for this critically ill patient.
Critical care statement: A total of 41 minutes of critical care time was provided for this patient today. This includes management of unstable vital signs, evaluation of the patient at bedside, reviewing the patient's pertinent medical records
including radiographs, microbiology, laboratory evaluations, and discussion with primary team, consultants, pharmacy, nutrition, physical therapy, case management, charge nurse, critical care nursing, and respiratory therapy.
Subjective Dataa
Subjective Data
Date of Service:
Date of Service: January 13, 2024
Chief Complaint: Viscosity Inspector Follow Up
Subjective:
Patient was seen and evaluated today at bedside. Remains unresponsive with absent gag, absent cough, absent corneal and absent pupillary reflexes. Last fever was yesterday of 100.4 �F. WBC count today worsened to 14.3 from 12.9. Sodium also
remains elevated at 156.
Review of Systems
General: Unobtainable - Pat Unresp
Objective Data
Data Reviewed
Vital Signs / I&O / Oxygen:
Vital Signs
Temp Pulse Resp BP Pulse Ox
99.1 F 88 18 131/65 93
01/13/24 07:45 01/13/24 09:30 01/13/24 09:30 01/12/24 23:09 01/13/24 09:30
Intake and Output
01/12/24 01/13/24 01/14/24
06:59 06:59 06:59
Intake Total 3288.9 / 3423.7 3145.9 / 3255.7 369.4 / 369.4
Output Total 6506 / 6636 4290 / 4400 325 / 325
Balance -3217.1 / -3212.3 -1144.1 / -1144.3 44.4 / 44.4
SaO2 [A/C] 92
SaO2 93
Physical Exam
General: Respiratory Distress (negative), Chills (negative) and Sweats (negative)
HEENT: Normocephalic, Anicteric, Moist Mucous Membranes and Other (ETT in place)
Cardiovascular: S1-S2 and Peripheral Edema (trace LE edema b/l)
Respiratory: Wheeze (negative), Rhonchi (negative), ET Tube and Other (Mechanical/coarse ventilator sounds heard bilaterally)
GI: Soft, Non Distended, Normal Bowel Sounds and NG Tube (DHT)
Neurology: Tremors (negative), Unresponsive and Other (Absent gag, absent cough and absent corneal reflexes; absent pupillary reflexes b/l with right eye +5, left eye +3; absent withdrawal to pain stimuli in all extremities; not breathing above
ventilator)
Skin: Warm, Dry, Jaundice (negative) and Other (Trace lower extremity edema bilaterally)
Labs/Micro/Reports
Lab Data
01/13/24 04:20
01/13/24 04:20
Laboratory Results
01/13/24
04:20
APTT 98.5 H
pH 7.50 H
pCO2 37
pO2 75 L
HCO3 28.9 H
O2 Delivery Level
Microbiology
01/08/24 23:50 Endotracheal Respiratory Culture - Final
Escherichia coli - ESBL
01/08/24 23:50 Endotracheal Gram Stain - Final
--- NOTE | 2024-01-13 09:02 | W.PN.NEURO.1 ---
Today's Communication / Plan
-
-Heparin drip, resume OAC when able, unless withdrawal from care is sought
Neuro Assessment/Plan
Assessment
63 year-old male with cardiac, completed TTM. Down time was approximately 10 mins. 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
CT Head 01/09/24: diffuse cerebral edema
Continuous EEG 01/09/24: no clear posterior dominant rhythm, little variability and muscle artifact obscuring aspects of the recording. Of what was visible, no clear seizure activity was seen. The study is consistent with severe diffuse cerebral
dysfunction, nonspecific in etiology.
I. Cardiac arrest x2, unclear total downtime, presumed to be 10 minutes initially and additional this after arrival to emergency department.
II. Recent C2-C5 hardware repair/laminectomy
Prognosis for patient is extremely poor based on unreactive EEG and CT of head demonstrating diffuse changes suggestive of edema. Additionally, patient demonstrating pupillary dilatation without reactivity suggestive of herniation. Brain
perfusion scan which was not demonstrative of brain
Patient unchanged after receiving hypertonic saline
Plan
-Heparin drip, resume OAC when able, unless withdrawal from care is sought
-DVT prophylaxis.
We will follow as needed
Subjective/Objective
Subjective Data
Date of Service: January 13, 2024
Patient unable to provide his own medical history.
Objective Data
Vital Signs
Temp Pulse Resp BP Pulse Ox
37.3 C 91 18 131/65 94
01/13/24 07:45 01/13/24 08:30 01/13/24 08:30 01/12/24 23:09 01/13/24 08:30
Lab Results
01/13/24 04:20
01/13/24 04:20
PT 16.3 Sec (11.4-14.6) H 01/07/24 15:54
INR 1.33 01/07/24 15:54
APTT 98.5 Sec (23.4-35.0) H 01/13/24 04:20
Sodium 156 mmol/L (135-145) H 01/13/24 04:20
Potassium 3.1 mmol/L (3.5-5.1) L 01/13/24 04:20
BUN 3 mg/dl (9-20) L 01/13/24 04:20
Glucose 152 mg/dl (70-99) H 01/13/24 04:20
Calcium 8.8 mg/dl (8.4-10.2) 01/13/24 04:20
Phosphorus 2.9 mg/dl (2.5-4.5) 01/13/24 04:20
Ujn-I-Ivbrhzidkyi Pept 368 pg/ml 01/10/24 04:31
LDL Cholesterol, Calc 91 mg/dl 01/08/24 04:11
Patient Allergies
No Known Allergies Allergy (Verified 01/07/24 16:30)
Review of Systems
-
Unable to obtain full review of systems at this time due to: Patient Intubation and Other (Unresponsive)
History Source: Patient
All other systems: Reviewed and negative
Physical Exam
-
General: No Apparent Distress and Intubated
Eyes: PERRLA (sluggish)
HEENT: Normocephalic and Atraumatic
Neck: Limited Range of Motion
Respiratory: Other (intubated)
Cardiac: No JVD
GI: Non-distended
Skin: Unremarkable
Extremities: No Clubbing, No Cyanosis and No Edema
Psych: Unable to Assess
Extended Neurological Exam
Mood & Affect: Unable to Assess
Attention Span & Concentration: Unresponsive to Verbal Stimuli and Unresponsive to Physical Stimuli
Memory: Unable to Assess
Tremor: Hand Tremor Absent and Head Tremor Absent
Speech: Unable to Assess
Cranial Nerve II: Left Eye: Unreactive and Unable to Assess Visual Gonzalez; Negative Pupillary Size Unremarkable (6 mm)
Cranial Nerve II: Right Eye: Unreactive and Unable to Assess Visual Gonzalez; Negative Pupillary Size Unremarkable (6 mm)
Cranial Nerve V: Facial Sensation: Unable to Assess
Cranial Nerve VII: Facial Symmetry: Normal Facial Symmetry
Cranial Nerve VIII: Hearing: Unable to Assess
Cranial Nerves IX, X: Palate Movement: Unable to Assess
Cranial Nerve XI: Shoulder Shrug: Unable to Assess
Cranial Nerve XII: Tongue Protusion: Unable to Assess
Muscle Strength, Overall: Spontaneously Moves (Irregularly, full-body proximal lasting 0.5 second)
Pronator Drift: Unable to Assess
Cold Sensation: Unable to Assess
Vibration Sensation: Unable to Assess
Coordination: Unable to Assess
Gait & Station: Unable to Assess
Data Reviewed
-
CT-Perfusion: Report Reviewed (Brain perfusion scan which was not demonstrative of brain )
Labs: Report Reviewed
Reviewed with: Physician, Nurse and Family
Old Records: Summarized
[2024-01-13 09:30] VITALS: BP_SYST 152
[2024-01-13 10:31] LABS: Osmolality Urine 614 mOsm/kg (300-900)
[2024-01-13 10:46] LABS: Urine Sodium > 250 mmol/L (30-90)
[2024-01-13] MEDS: HEPARIN 25000 UNITS/250 ML IV (11:02)
[2024-01-13] MEDS: NOVOLOG FLEXPEN-MODERATE RESISTANCE SC ×2 (11:42→17:35)
[2024-01-13] MEDS: D5W 1000 IV (11:42)
[2024-01-13 11:51] LABS: Glucose - Point of Care 135 mg/dl (70-99)
--- NOTE | 2024-01-13 12:00 | PTCARENOTE ---
No major changes in physical assessment since am. Weaning parameters changed for levophed gtt...will titrate to maintain SBP > 90...see intervention. IVF's increased per and urine studies sent. Family at bedside...fully updated by
nursing and MD's. Will continue to monitor closely.
--- NOTE | 2024-01-13 16:00 | PTCARENOTE ---
No major changes in physical assessment. BP and sats labile w/ repositioning. Incontinent for small loose BM. Remains on heparin and levophed gtts. IVF's changed to NSS @ 120ml/hr. DDAVP given x 1. Will continue to monitor closely.
[2024-01-13] MEDS: NSS 1000 IV (16:06)
[2024-01-13] MEDS: DDAVP 50.0625 MCG IV (16:06)
[2024-01-13 16:30] VITALS: BP_SYST 82
[2024-01-13 17:00] VITALS: BP_SYST 150
[2024-01-13 17:21] LABS: Blood Urea Nitrogen 7 mg/dl (9-20); Calcium 8.6 mg/dl (8.4-10.2); Carbon Dioxide 27 mmol/L (22-30); Chloride 113 mmol/L (98-107); Estimated Creatinine Clearance 118 ml/min; Glucose 129 mg/dl (70-99); Potassium 3.2 mmol/L (3.5-5.1); Sodium 150 mmol/L (135-145); eGFR > 60.00
[2024-01-13 17:30] VITALS: BP_SYST 86
[2024-01-13] MEDS: KCL ELIXIR 40 MEQ TUBE ×2 (17:54→20:45)
[2024-01-13 21:12] VITALS: BP_SYST 81
--- NOTE | 2024-01-13 21:30 | PTCARENOTE ---
Report received from previous shift RN [id number]. Pt in bed with several family members at bedside. Pt is unresponsive, absent cough/gag, absent corneal reflexes, no grasp. Pupils unreactive, 6mm, scleral edema noted (R more so than L). #7.5 ETT secured
to R lip at 24cm, vent settings AC 18/500/60%/+5, lung sounds decreased throughout w coarse crackles. Suctioned pt for small amount thin vazquez sputum via ETT. Telemetry rhythm reveals SR, HR 80's, generalized anasarca noted, b/l hand edema noted,
palpable peripheral pulses present. +BS, abdomen soft round, NPO status maintained. R nare NGT to LIWS, green/brown drainage noted. Incont loose brown bm, incontinence care provided. Thermistor Hall catheter draining parisa/tea colored urine, Hall
care performed. Skin as documented. R radial arterial line transduced, zeroed and flushed. R AC int flushed and patent, capped. R upper arm int with IVF per order. L DL PICC flushed and patent: Heparin drip infusing at therapeutic rate of 1600
units/hr (16ml/hr) via purple lumen; Levophed infusing via yellow lumen to maintain SBP > 90mmHg (see flowsheet for titration details). Safe environment maintained, plan reviewed w pt's spouse at bedside. Repositioning pt Q2H for skin integrity.
Will continue to monitor closely.
[2024-01-13 22:54] LABS: Blood Urea Nitrogen 8 mg/dl (9-20); Calcium 8.7 mg/dl (8.4-10.2); Carbon Dioxide 27 mmol/L (22-30); Chloride 115 mmol/L (98-107); Estimated Creatinine Clearance 103 ml/min; Glucose 116 mg/dl (70-99); Potassium 3.8 mmol/L (3.5-5.1); Sodium 152 mmol/L (135-145); eGFR > 60.00
[2024-01-14] MEDS: NSS 1000 IV ×3 (00:22→17:01)
[2024-01-14 00:32] LABS: Glucose - Point of Care 88 mg/dl (70-99)
[2024-01-14] MEDS: LOPRESSOR IV ×2 (00:59→05:05)
[2024-01-14] MEDS: NOVOLOG FLEXPEN-MODERATE RESISTANCE SC ×4 (00:59→18:36)
--- NOTE | 2024-01-14 01:07 | PTCARENOTE ---
No change in patient assessment.
Pt's large extended family at bedside. Family discussions held. Emotional support provided.
Will continue to monitor closely.
[2024-01-14] MEDS: ZOSYN 50 IV ×4 (01:35→19:24)
[2024-01-14] MEDS: HEPARIN 25000 UNITS/250 ML IV ×2 (02:40→18:30)
[2024-01-14 04:34] LABS: Venous Blood Gas B.E. 3.2 mmol/L (-4 to +4); Venous Blood Gas HCO3 26.9 mmol/L (22-27); Venous Blood Gas O2 Sat % 99.5 %; Venous Blood Gas pCO2 37 mmHg (35-48); Venous Blood Gas pH 7.47 (7.32-7.43); Venous Blood Gas pO2 201 mmHg (30-50)
[2024-01-14 04:42] VITALS: BMI 27.6
[2024-01-14] MEDS: TYLENOL ORAL SOLUTION 650 MG TUBE ×3 (04:49→15:12)
[2024-01-14] MEDS: LEVOPHED 250 IV ×2 (04:50→15:12)
[2024-01-14] MEDS: SYNTHROID 175 MCG TUBE (05:04)
[2024-01-14 05:12] LABS: APTT 118.6 Sec (23.4-35.0)
--- NOTE | 2024-01-14 05:37 | PTCARENOTE ---
Continuing to reposition pt Q2H in bed for skin integrity. Repositioned ETT to center lip; mouth care provided, lip moisturizer applied. Pt's AM PTT result supratherapeutic, adjusted Heparin infusion per protocol.
Pt's arterial line intermittently with dampened waveform.
No change in pt assessment. Pt's one sister remains at bedside.
Will continue to monitor closely.
[2024-01-14 05:50] LABS: Blood Urea Nitrogen 9 mg/dl (9-20); Calcium 8.7 mg/dl (8.4-10.2); Carbon Dioxide 27 mmol/L (22-30); Chloride 114 mmol/L (98-107); Estimated Creatinine Clearance 118 ml/min; Glucose 95 mg/dl (70-99); Potassium 3.5 mmol/L (3.5-5.1); Sodium 148 mmol/L (135-145); eGFR > 60.00
[2024-01-14] MEDS: KCL ELIXIR 40 MEQ TUBE (06:24)
[2024-01-14 07:00] VITALS: BP_SYST 82
--- NOTE | 2024-01-14 07:54 | W.PN.INTV ---
Today's Communication / Plan
Recommendations
Ventilator support
Perfusion scan
Heparin drip
Minimize sedation
Consider withdrawal
[facility] involved
Assessment
-
Assessment: 63-year-old male former tobacco smoker (quit 12 years ago) with a PMHx of A-fib on Pradaxa, hypertension, hypothyroidism, history of PUD, sleep apnea, GERD, history of prostate cancer, history of tonsillar cancer and colonic polyps who
presented with sgi-oi-auksljkz cardiac arrest. Patient was at home with , Heather, and he was sitting on the sofa and appeared to be sleeping. She tried seeing if he was awake which he was not, and she called 911 and she performed CPR until
police arrived which was about 6 minutes later and then they took over. He was given epi by EMS with ROSC obtained then brought here to the ER. He recently had a laminectomy a few days CARBONIZER and Pradaxa was held for 5 days prior and had yet to be
resumed. Patient presented to the ER pulseless with CPR started immediately. ROSC obtained after 3 rounds of CPR with epinephrine given, 2 A of bicarb and calcium. Flutter. On EKG s/p ROSC. Prehospital EKG was concerning for diffuse ST
depressions. Therapeutic hypothermia protocol was started and he was transferred to the ICU for further care with intensive services consulted for additional management/recommendations.
Impression:
#Ctu-rr-hqkmzdur cardiac arrest x2 (arrested at home and then while arriving to ER)
#Ventilator dependent respiratory failure
#Hypoxic�ischemic encephalopathy with diffuse cytotoxic edema seen on CT head from 01/09/2024
#Multifocal pneumonia (mainly right-sided) likely due to aspiration
#Dilated right ventricle with normal RV systolic function
#Anemia
#Polyuria with hypernatremia and high urine sodium (of note, he is s/p hypertonic saline on 01/08 - 01/09) - due to central arginine vasopressin deficiency/DI
#Hypomagnesemia - resolved
#Elevated LFTs
#Elevated troponin likely due to demand ischemia with type II [place] - peaked at 0.162 on 01/07/2024
#Pulmonary hypertension (mild with PASP: 40 mmHg assuming an RAP of 3 mmHg via TTE from 01/07/2024)
#History of paroxysmal A-fib on Pradaxa
#Hypothyroidism
#Former tobacco smoker (quit approximately 12 years ago)
Plan:
Critically ill on a ventilator unresponsive
Ventilator settings reviewed-reviewed with CUT FILER
Airway pressures reviewed and adequate
VAP prevention protocol
Follow radiographs
Follow occasional ABG
Aspiration precautions
Nebulizers if needed-currently not bronchospastic
Monitor for recurrent arrhythmias
Heparin drip continues
Status post targeted temperature management-reached goal temperature 01/08/2024
Neurochecks continue
Neurology following-correspondence reviewed-prognosis is extremely poor based on unreactive EEG and CT head demonstrating diffuse changes suggesting of edema in addition to pupillary dilation without reactivity suggestive of herniation
Initial brain perfusion scan was not demonstrated of brain yet
Limit sedation
EEG shows no seizures with severe diffuse cerebral dysfunction; neurology consulted with recs appreciated
Hypertonic saline started on 01/09/24 given diffuse cerebral edema seen on CT head; this portends a very poor prognosis and these results were discussed with the family
Nuclear brain perfusion scan on 01/11/2024 shows preserved brain flow --> unable to declare brain at this time, in addition he was on fentanyl gtt and given its effects which can be prolonged with drips, we are unable to do apnea breath test at
this time either.
Repeat nuclear brain perfusion scan 01/14/2024
Monitor electrolytes
Replace as needed
Continues on normal saline-serum sodium 148
Vasopressin/DDAVP as needed
Consider nephrology evaluation if serum sodium difficult to manage
[facility] aware of case and once patient declared brain vs withdrawn then they will begin organ donation process-discussed the case with them
Avoid fevers-continue Tylenol as needed
Cultures reviewed
Zosyn continues
Follow occasional chest x-ray
Trend WBCs
Monitor hemoglobin
Transfuse as needed
Trend liver functions
DVT prophylaxis-on heparin drip
GI prophylaxis-on PPI
Dr. Tam reviewed with , sister, and son at the bedside-prognosis unfortunately quite poor-they understand that if patient not brain- but minimal chance for meaningful recovery they can withdraw extraordinary means of life support
Critical care statement: A total of 50 minutes of critical care time was provided for this patient today. This includes management of unstable vital signs, evaluation of the patient at bedside, reviewing the patient's pertinent medical records
including radiographs, pressor management, ventilator management, microbiology, laboratory evaluations, and discussion with primary team, consultants, pharmacy, nutrition, physical therapy, case management, charge nurse, critical care nursing, and
respiratory therapy.
Subjective Dataa
Subjective Data
Date of Service:
Date of Service: January 14, 2024
Chief Complaint: Legal Recovery Specialist Follow Up and Vent Management Follow Up
Subjective:
Patient unresponsive, no pupillary reaction, negative corneals, no gag reflex, review of systems unobtainable, mild secretions
Review of Systems
General: Other ( per HPI)
Objective Data
Data Reviewed
Vital Signs / I&O / Oxygen:
Vital Signs
Temp Pulse Resp BP Pulse Ox
97.7 F 81 18 131/65 93
01/14/24 04:00 01/14/24 06:30 01/13/24 21:30 01/12/24 23:09 01/14/24 06:30
Intake and Output
01/13/24 01/14/24 01/15/24
06:59 06:59 06:59
Intake Total 3145.9 / 3305.7 4312.0 / 4312.0
Output Total 4290 / 4400 2450 / 2450
Balance -1144.1 / -1094.3 1862.0 / 1862.0
SaO2 [A/C] 91
SaO2 93
Physical Exam
General: Respiratory Distress (negative), Comfortable, Chills (negative) and Sweats (negative)
HEENT: Normocephalic, Anicteric, Moist Mucous Membranes and Other (ETT in place)
Cardiovascular: Regular Rhythm and Peripheral Edema (trace LE edema b/l)
Respiratory: Wheeze (negative), Rhonchi (negative), ET Tube and Other (Mechanical/coarse ventilator sounds heard bilaterally)
GI: Soft, Non Distended, Normal Bowel Sounds and NG Tube (DHT)
Neurology: Tremors (negative), Unresponsive and Other (Absent gag, absent cough and absent corneal reflexes; absent pupillary reflexes b/l with right eye +5, left eye +3; absent withdrawal to pain stimuli in all extremities; not breathing above
ventilator)
Skin: Warm, Good Color, Cyanosis (n), Jaundice (negative) and Other (Trace lower extremity edema bilaterally)
Labs/Micro/Reports
Lab Data
01/13/24 04:20
Laboratory Results
01/14/24
04:23
APTT 118.6 H
Microbiology
01/08/24 23:50 Endotracheal Respiratory Culture - Final
Escherichia coli - ESBL
01/08/24 23:50 Endotracheal Gram Stain - Final
--- NOTE | 2024-01-14 08:00 | PTCARENOTE ---
Received pt via handoff. Pt unresponsive w/ no cough or gag reflex. No grasp and slight decorticate posturing in LE. Pupils +5-+6 non reactive. NSR with generalized anasarca > in upper extremities. #7.5 ETT 24@Lip, vent settings 18/500/60%/5. Absent
bowel sounds, round and soft. Vinton in the right nare. Thermistor lowry in place and draining parisa urine. Mikaela zeroed with good waveform. Levo, heparin and NS gtts running see flowsheet. Family at bedside.
[2024-01-14] MEDS: NSS (PRESERVATIVE FREE) 10 ML IV (08:01)
--- NOTE | 2024-01-14 08:01 | W.PN.HOSP.TC ---
Addendum entered and electronically signed by Priti Ruiz MD, Resident 01/16/24 12:00:
Addendum for CDI
Coma
Addendum entered and electronically signed by Yoni Martin MD 01/14/24 10:17:
I saw and evaluated the patient. I reviewed the resident�s note and agree with findings and plan as documented in the resident�s note.
Addendum entered and electronically signed by Yoni Martin MD 01/14/24 09:39:
I saw and examined the patient.
The CLAY PROCESSING LABOURER or PA's note was reviewed and I agree with the note.
Comment: Patient unresponsive
NAD
RRR, normal S1/S2
CTAB
+BS/soft/NT/ND
Out of hospital PEA cardiac arrest:
-Etiology of cardiac arrest unclear
-was on cooling protocol on admission, now completed
-cont ACMV
-CT brain 01/11/24: Stable exam suggesting global hypoxic ischemic injury and possible obstructive hydrocephalus.
-CT brain perfusion 01/11/24: No scintigraphic evidence for brain .
-EEG consistent with severe diffuse cerebral dysfunction.
-currently on Levophed
-repeat CT brain perfusion today
-extremely poor prognosis, hospice appropriate
Aspiration pneumonia:
-CXR 01/14/24 (read by me): Partial obscuration of the left hemidiaphragm, suggestive of left lower lobe pneumonia or subsegmental atelectasis. Small left pleural effusion may also be present. Tubes and lines remain in satisfactory position.
-Sputum culture positive for ESBL E Coli
-Continue zosyn
Other problems:
Paroxysmal afib s/p ablation, PVI 2021: Currently in SR, cont heparin gtt/IV BB
Hypokalemia, resolved
Hypernatremia, resolved with D5W and DDAVP
Tonsillar cancer s/p radiation and tonsillectomy 2006
Cervical myelopathy
h/o C2-C5 laminectomy 07/2023
Cervical hardware failure, kyphotic deformity, listhesis s/p revision cervical surgery with C2-T2 fusion 01/03/24
KATTY, now resolved, was likely due to cardiac arrest
Daily alcohol use: cont Thiamsin
GERD with PUD: cont PPI
Hypothyroidism: cont Levoxyl
h/o prostate cancer s/p prostatectomy
FLORES
h/o uvuloplasty
Total critical care time spent = 35 min
Original Note:
Today's Communication/Plan
-
see plan, repeat perfusion scan today
Assessment / Plan
Assessment / Plan
63yo M with PHM s/p revision cervical surgery on 01/03/[address] ([address] Tamayo at [facility]), tonsillar cancer s/p radiation and tonsillectomy, afib previously on dabigatron (discontinued ~5 days prior to surgery) s/p PVI 2021, HTN who presented from
home to ED [facility] for cardiac arrest 01/06. Per record review, he was recently discharged from [facility] following spinal surgery. At home he reported chest/back pain and his found him unresponsive. ACLS by EMS with ROSC en route to hospital. In
ED, found to be in PEA and bicarb x2, calcium, epi x3 administered with continued ACLS, nonshockable rhythm. ROSC achieved and levophed drip started. Throughout his admission, he has required intermittent cardene drip to control blood pressures.
#Cardiac arrest, [id number]
#PEA, nonshockable rhythm
#hypertension and hypotension
- Unclear etiology of cardiac arrest, possibly cardiac arrhythmia. Unclear downtime, per previous documentation about 10 minutes.
- On admission, Chest CT w IV contrast negative for PE. Head CT negative for intracranial hemorrhage
- Echo 01/06: EF 60-65%, no regional wall motion abnormalities
- BNP 1930, troponin 0.35 --> 0.162 --> 0.155
- Remains intubated. Continue mechanical ventilation per respiratory. RR 18, Vt 500, PEEP +5, FiO2 60%. SpO2 93%
- Hall in situ, clear parisa urine. Adequate UOP. Continue to monitor I&Os.
- Previously on cooling protocol (initiated at 01/06). S/p rewarming protocol 01/07 --> euthermic.
- Intermittently febrile beginning 01/10 2333. Tmax: 100.7 @ 0310, 1145 01/11. Last febrile to 100.4 @ 1545 01/11. Now 97.7 @ 0400 01/13. Continue tylenol, zosyn. Continue to follow temperature trend.
- Cardiology following. Has required cardene gtt intermittently to manage hypertension, this is off now. Currently requiring levophed for pressure support. Levophed at 6, BP 123/72. HR 80s.
- Neuro following. EEG consistent with severe diffuse cerebral dysfunction.
- Head CT 01/08 consistent with diffuse cytotoxic edema, hypoxic-ischemic encephalopathy, hydrocephalus.
- Head CT 01/10 overall no significant changes to account for new anisocoria that developed overnight; CT report also notes 'downward herniation of the cerebellar tonsils redemonstrated' when compared to prior head CT.
- Nuclear medicine brain scan 01/10 indicates blood flow to brain.
- Continue serial CMP, CBC, neurological exams
- Continue IVF, electrolyte supplementation prn, rectal aspirin, heparin
- Sedation discontinued 01/10. Avoid fentanyl and propofol if appropriate, to accurately assess neurologic function. Not eligible for apnea test at this time.
- Repeat perfusion scan today, scheduled for 2:30pm
- Overall poor prognosis. Progression of physical exam findings in combination with EEG and CT findings are not reassuring. As of 01/10 he is not overbreathing the ventilator (set rate 18 breaths/min), however this is in the context of recent
sedation which has not had sufficient washout time. The nuclear nuclear medicine brain scan 01/10 indicates that there is perfusion to brain tissue, which is neither evidence for nor against a diagnosis of brain . Pupils now equal, 6mm
bilaterally; unreactive to light.
- I spoke to patient's and 2 sons at bedside 01/10 AM. We discussed new physical exam findings and imaging results, and what these mean in terms of his prognosis. We also discussed sedation and blood pressure management. They are aware that this
his condition is terminal and Ponce's preference would be to donate organs if possible. They are overwhelmed by feeling responsible for deciding the day or time of withdrawing care, and would prefer a clear sign such as being declared brain . They
are also frustrated with certain interactions regarding organ donation. Assured family that our priority is caring for Ponce the way he would want and supporting them.
- Again spoke with family 01/11 AM and reviewed new result from the perfusion scan. At this time they would like to repeat perfusion scan on Sunday to check if there is any 'brain activity.' I clarified with them that this scan shows blood flow to
brain, but not brain activity. They are generally realistic though have a slim hope that brain activity will improve. We again discussed EEG results and CT findings of cerebral edema and herniation, and overall prognosis. Also reviewed that he is
not a candidate for an apnea test because of his recent sedation. Support provided to family. Discussed with vineyard supervisor, neurology, nursing
#paroxysmal afib s/p ablation, PVI 2021
#sinus tachycardia
- Dabigatran reportedly held for about 5 days prior to surgery
- Hold dabigatron
- HR 80s this AM
- Continue to monitor
#Aspiration pneumonia
- Sputum culture positive for E Coli ESBL
- Continue zosyn
- Tmax 100.7, now afebrile
- Appears improved on daily chest xray
- Not protecting airway, at risk for additional aspiration events
#Hypokalemia
- Serum K 3.5 today
- s/p IV K supplementation, continue prn
#Hypernatremia
- S/p D5W, Ddavp x1 01/12
- Serum Na improving, 148 today
#Tonsillar cancer s/p radiation and tonsillectomy 2006
#Cervical myelopathy
#S/p C2-C5 laminectomy 07/2023
#Cervical hardware failure, kyphotic deformity, listhesis
#S/p revision cervical surgery with C2-T2 fusion 01/03/24
#KATTY
- Suspect secondary to poor renal perfusion during cardiac arrest
- Cr 1.4 on admission --> 0.7 today
#Daily alcohol use
- Monitor for signs/symptoms of alcohol withdrawal
- Supplement thiamine
#peptic ulcer disease/GERD
#H/o GI bleed
- IV protonix
#Hypothyroidism
- Continue home levothyroxine 200mcg
- TSH 0.04 low, T4 2.22 high. Recheck TSH when stable
#H/o prostate cancer s/p prostatectomy
#Sleep apnea
#s/p uvuloplasty
Code status: full
VTE ppx: heparin
Diet: NPO
Dispo planning: TBD
Anticipated Discharge: > 48 hours
Subjective/Interval History
-
Date of Service: January 14, 2024
He remains intubated, not on sedation. Ventilator settings RR 18, Vt 500, +5, 60%. Norepinephrine gtt at 6 mcg/min.
Objective Data
-
Labs:
Laboratory Results
01/13/24 01/14/24 01/14/24
22:07 04:23 11:25
APTT 118.6 H Pending
Sodium 152 H 148 H
Potassium 3.8 3.5
Chloride 115 H 114 H
Carbon Dioxide 27 27
BUN 8 L 9
Creatinine 0.8 0.7
Glucose 116 H 95
Calcium 8.7 8.7
01/14/24 01/14/24
12:00 18:00
APTT
Sodium Pending Pending
Potassium Pending Pending
Chloride Pending Pending
Carbon Dioxide Pending Pending
BUN Pending Pending
Creatinine Pending Pending
Glucose Pending Pending
Calcium Pending Pending
Vital Signs:
Vital Signs
Temp Pulse Resp BP Pulse Ox
97.7 F 81 18 131/65 93
01/14/24 04:00 01/14/24 06:30 01/13/24 21:30 01/12/24 23:09 01/14/24 06:30
I&O
01/13/24 01/14/24 01/15/24
06:59 06:59 06:59
Intake Total 3145.9 / 3305.7 4312.0 / 4312.0
Output Total 4290 / 4400 2450 / 2450
Balance -1144.1 / -1094.3 1862.0 / 1862.0
Review of Systems
-
Unable to obtain full review of systems at this time due to: Patient Intubation
Physical Exam
-
General: Intubated
HEENT: Normocephalic, Atraumatic, Anicteric, Callaghan Conjunctivae and Other (pupils fixed, equal 6mm, unresponsive to light; absent corneal reflex)
Respiratory: Rhonchi (anterior lung oneal) and Other (intubated and not initiating spontaneous breaths (ventilator set resp rate 18))
Cardiac: Regular Rhythm and S1/S2
GI: Soft and Nondistended
Genito-urinary: Clear Urine and Hall
Musculoskeletal: No Cyanosis and Other (1-2+ pitting edema difusely)
Skin: Warm, Dry and IV Access / Catheter Site (L arm PICC, R A line)
Neuro: Other (no cough or gag reflex with deep suctioning; pupils unresponsive to light, absent corneal reflex; unresponsive to painful stimuli, sternal rub; occasional non-purposeful movements ); Negative Awake
Data Reviewed
-
Diagnostic Radiology: Image personally visualized and interpreted
CT Scan: Image personally visualized and interpreted, Report Reviewed by me, Discussed with Physician, Discussed with Nurse and Discussed with Family
Medical Tests (Nuc Med, Echo etc): Image personally visualized and interpreted, Report Reviewed by me, Discussed with Physician, Discussed with Nurse and Discussed with Family
Labs: Labs Reviewed by me, Discussed with Physician and Discussed with Nurse
[2024-01-14 08:11] LABS: Glucose - Point of Care 134 mg/dl (70-99)
[2024-01-14] MEDS: ASPIRIN 300 MG RECTAL (10:00)
[2024-01-14] MEDS: THIAMINE INJECTION 200 MG IV (10:00)
[2024-01-14] MEDS: REFRESH CELLUVISC GEL 1 DROPS BOTH EYES ×2 (10:00→19:25)
[2024-01-14] MEDS: PROTONIX IV 40 MG IV (10:01)
--- NOTE | 2024-01-14 11:45 | W.PN.INTV ---
Documented by User: Luz Underwood MD, Resident 01/14/24 11:59
Today's Communication / Plan
Recommendations
Potassium chloride 10% elixir given due to hypokalemia at 3.2 on 01/12. We will continue with ventilation with a goal to keep SpO2 at greater than 94%. Giving normal saline 0.9% with goal sodium between 145�150. Continue Zosyn. Continue
aspiration precautions. Patient is scheduled for a nuclear brain perfusion scan today in the morning. Patient will possibly be an organ donor based on discussion with family.
Assessment
-
Assessment: 63-year-old male former tobacco smoker (quit 12 years ago) with a PMHx of A-fib on Pradaxa, hypertension, hypothyroidism, history of PUD, sleep apnea, GERD, history of prostate cancer, history of tonsillar cancer and colonic polyps who
presented with [id number] cardiac arrest. Patient was at home with , Heather, and he was sitting on the sofa and appeared to be sleeping. She tried seeing if he was awake which he was not, and she called 911 and she performed CPR until
police arrived which was about 6 minutes later and then they took over. He was given epi by EMS with ROSC obtained then brought here to the ER. He recently had a laminectomy a few days [facility] and Pradaxa was held for 5 days prior and had yet to be
resumed. Patient presented to the ER pulseless with CPR started immediately. ROSC obtained after 3 rounds of CPR with epinephrine given, 2 A of bicarb and calcium. Flutter. On EKG s/p ROSC. Prehospital EKG was concerning for diffuse ST
depressions. Therapeutic hypothermia protocol was started and he was transferred to the ICU for further care with intensive services consulted for additional management/recommendations.
Impression:
#Pbu-hc-yyjjnhaz cardiac arrest x2 (arrested at home and then while arriving to ER)
#Ventilator dependent respiratory failure
#Hypoxic�ischemic encephalopathy with diffuse cytotoxic edema seen on CT head from 01/09/2024
#Multifocal pneumonia (mainly right-sided) likely due to aspiration
#Dilated right ventricle with normal RV systolic function
#Anemia
#Polyuria with hypernatremia and high urine sodium (of note, he is s/p hypertonic saline on 01/08 - 01/09) - due to central arginine vasopressin deficiency/DI
#Hypomagnesemia - resolved
#Elevated LFTs
#Elevated troponin likely due to demand ischemia with type II CO - peaked at 0.162 on 01/07/2024
#Pulmonary hypertension (mild with PASP: 40 mmHg assuming an RAP of 3 mmHg via TTE from 01/07/2024)
#History of paroxysmal A-fib on Pradaxa
#Hypothyroidism
#Former tobacco smoker (quit approximately 12 years ago)
Plan:
Critically ill on a ventilator unresponsive
Ventilator settings reviewed-reviewed with RAW HIDE TRIMMER
Continue with ventilation titrating FiO2 and PEEP to keep SpO2 greater than 94%
Airway pressures reviewed and adequate
VAP prevention protocol
Follow radiographs
Follow occasional ABG
Aspiration precautions
Nebulizers if needed-currently not bronchospastic
Monitor for recurrent arrhythmias
Heparin drip continues
Status post targeted temperature management-reached goal temperature 01/08/2024
Neurochecks continue
Neurology following-correspondence reviewed-prognosis is extremely poor based on unreactive EEG and CT head demonstrating diffuse changes suggesting of edema in addition to pupillary dilation without reactivity suggestive of herniation
Initial brain perfusion scan was not demonstrated of brain yet
Limit sedation
EEG shows no seizures with severe diffuse cerebral dysfunction; neurology consulted with recs appreciated
Hypertonic saline started temporarily on 01/09/24 given diffuse cerebral edema seen on CT head; this portends a very poor prognosis and these results were discussed with the family
Patient currently on normal saline 0.9% with a goal sodium of 145�150
Nuclear brain perfusion scan on 01/11/2024 shows preserved brain flow --> unable to declare brain at this time, in addition he was on fentanyl gtt and given its effects which can be prolonged with drips, we are unable to do apnea breath test at
this time either.
Awaiting nuclear brain perfusion scan 01/14/2024
Monitor electrolytes - potassium chloride 10% elixir given on 01/14/2024 due to hypokalemia at 3.2 on 01/12
Replace as needed
Continues on normal saline-serum sodium 148
Vasopressin/DDAVP as needed
Consider nephrology evaluation if serum sodium difficult to manage
[facility] aware of case and once patient declared brain vs withdrawn then they will begin organ donation process-discussed the case with them
Avoid fevers-continue Tylenol as needed
Cultures reviewed
Zosyn continues
Follow occasional chest x-ray
Trend WBCs
Monitor hemoglobin
Transfuse as needed
Trend liver functions
DVT prophylaxis-on heparin drip
GI prophylaxis-on PPI
Prognosis unfortunately quite poor. Family understands that if patient not brain- but minimal chance for meaningful recovery they can withdraw extraordinary means of life support
Critical care statement: A total of 50 minutes of critical care time was provided for this patient today. This includes management of unstable vital signs, evaluation of the patient at bedside, reviewing the patient's pertinent medical records
including radiographs, pressor management, ventilator management, microbiology, laboratory evaluations, and discussion with primary team, consultants, pharmacy, nutrition, physical therapy, case management, charge nurse, critical care nursing, and
respiratory therapy.
Subjective Dataa
Subjective Data
Date of Service:
Date of Service: January 14, 2024
Chief Complaint: Digital Forensic Examiner Follow Up and Vent Management Follow Up
Subjective:
Patient is currently intubated without sedation. Patient remains unresponsive and does not respond to painful stimuli. Fixed pupils unresponsive to light. Absent corneal reflex.
Review of Systems
General: Unobtainable - Pat Unresp
Genitourinary: Hall
Objective Data
Data Reviewed
Vital Signs / I&O / Oxygen:
Vital Signs
Temp Pulse Resp BP Pulse Ox
97.7 F 90 18 131/65 90
01/14/24 04:00 01/14/24 10:00 01/13/24 21:30 01/12/24 23:09 01/14/24 11:39
Intake and Output
01/13/24 01/14/24 01/15/24
06:59 06:59 06:59
Intake Total 3145.9 / 3305.7 4312.0 / 4469.5 787.5 / 787.5
Output Total 4290 / 4400 2450 / 2560 310 / 310
Balance -1144.1 / -1094.3 1862.0 / 1909.5 477.5 / 477.5
SaO2 [A/C] 93
SaO2 90
Physical Exam
General: Respiratory Distress (negative), Comfortable, Chills (negative) and Sweats (negative)
HEENT: Normocephalic, Anicteric, Moist Mucous Membranes and Other (ETT in place)
Cardiovascular: Regular Rhythm and Peripheral Edema (trace LE edema b/l)
Respiratory: Wheeze (negative), Rhonchi (negative), ET Tube and Other (Mechanical/coarse ventilator sounds heard bilaterally)
GI: Soft, Non Distended, Normal Bowel Sounds and NG Tube (DHT)
Neurology: Tremors (negative), Unresponsive and Other (Absent gag, absent cough and absent corneal reflexes; absent pupillary reflexes b/l; absent withdrawal to pain stimuli in all extremities; not breathing above ventilator)
Skin: Warm, Good Color, Cyanosis (n), Jaundice (negative) and Other (Trace lower extremity edema bilaterally, generalized anasarca)
Labs/Micro/Reports
Lab Data
01/13/24 04:20
Laboratory Results
01/14/24
04:23
APTT 118.6 H
Microbiology
01/08/24 23:50 Endotracheal Respiratory Culture - Final
Escherichia coli - ESBL
01/08/24 23:50 Endotracheal Gram Stain - Final

Documented by User: Boo Tam MD 01/14/24 14:45
Today's Communication / Plan
Recommendations
Potassium chloride 10% elixir given due to hypokalemia at 3.2 on 01/12. We will continue with ventilation with a goal to keep SpO2 at greater than 94%. Giving normal saline 0.9% with goal sodium between 145�150. Continue Zosyn. Continue
aspiration precautions. Patient is scheduled for a nuclear brain perfusion scan today in the morning. Patient will possibly be an organ donor based on discussion with family.
I reviewed this patients case independently and in conjunction with the resident. I personally examined the patient. Patient's complex medical history, laboratory evaluations, events over the last 24 hours, radiographs, microbiological data were
all personally reviewed.
Agree with documented assessment and plan
Critical care statement: A total of 50 minutes of critical care time was provided for this patient today. This includes management of unstable vital signs, evaluation of the patient at bedside, reviewing the patient's pertinent medical records
including radiographs, microbiology, laboratory evaluations, and discussion with primary team, consultants, pharmacy, charge nurse, critical care nursing, and respiratory therapy.
Boo Tam MD, [facility], [facility]
--- NOTE | 2024-01-14 12:00 | PTCARENOTE ---
All systems reassessed, no change in status, gtts running see flowsheet. Labs drawn. Family remains at bedside.
[2024-01-14 12:01] LABS: APTT 110.7 Sec (23.4-35.0)
[2024-01-14] MEDS: LOPRESSOR 2.5 MG IV ×2 (12:15→18:03)
[2024-01-14 12:25] LABS: Blood Urea Nitrogen 9 mg/dl (9-20); Calcium 8.8 mg/dl (8.4-10.2); Carbon Dioxide 28 mmol/L (22-30); Chloride 111 mmol/L (98-107); Estimated Creatinine Clearance 103 ml/min; Glucose 90 mg/dl (70-99); Potassium 3.6 mmol/L (3.5-5.1); Sodium 147 mmol/L (135-145); eGFR > 60.00
[2024-01-14 12:32] LABS: Glucose - Point of Care 80 mg/dl (70-99)
--- NOTE | 2024-01-14 12:32 | CM ---
Reviewed the chart notes. Patient remains intubated. Patient is scheduled for a nuclear brain perfusion scan today. CM continues to be available to patient/family and is monitoring medical plan for needs at discharge.
Plan: Will depend on family's decision.
[2024-01-14 12:45] VITALS: BP_SYST 57
[2024-01-14 13:42] VITALS: BP_SYST 105
--- NOTE | 2024-01-14 15:25 | PTCARENOTE ---
All pt systems reassessed. Transported down to [facility]. No change in status, will continue to monitor.
[2024-01-14 15:49] LABS: B.E. 1.3 mmol/L; HCO3 25.9 mmol/L (21-28); O2 Saturation % 95.6 % (94-98); PCO2 40 mmHg (35-48); PO2 69 mmHg (83-108); pH 7.42 (7.35-7.45)
[2024-01-14 16:19] LABS: B.E. -1.6 mmol/L; HCO3 28.9 mmol/L (21-28); O2 Saturation % 93.9 % (94-98); PO2 82 mmHg (83-108)
[2024-01-14 16:21] LABS: PCO2 81 mmHg (35-48); pH 7.16 (7.35-7.45)
--- NOTE | 2024-01-14 16:28 | W.PN.UPDATE ---
Update Note
Progress Note Update
Apnea test completed showing no spontaneous breaths. No spontaneous breaths taken over 10 minutes time.
ABG taken following completion of apnea test. Awaiting results.
Spoke with the patient's family and loved ones and updated them on his on current status.
NM Brain Scan W/flow-brn conducted on 01/14/24 showed no demonstrable intracranial blood flow, pattern of which is consistent with brain .
--- NOTE | 2024-01-14 16:29 | W.PN.UPDATE ---
Update Note
Progress Note Update
Reevaluated the patient multiple times throughout the day
Perfusion scan consistent with brain
Contacted neurology
Neurology performed bedside neuroexam including cold calorics and confirmed brain
Subsequently apnea test was performed on 100%-ABGs documented-no spontaneous respirations-again confirmed brain
Family updated multiple times throughout the day--they all understand the patient is brain-
[facility] following-corresponded with them multiple times throughout the day
Reviewed with hospitalist-they will pronounce
Patient will likely go to [facility]/donor floor for additional testing and organ procurement
Reviewed with critical care nursing
Total critical care time spent today 85 minutes
--- NOTE | 2024-01-14 16:53 | W.PN.DEATH ---
Pronouncement of
-
Called to see patient to pronounce.
Prior testing including brain perfusion and cold calorics by neurology confirmed brain .
Apnea test performed for confirmation, no spontaneous respirations. Then resumed mechanical ventilation.
No spontaneous neurological activity. Dilated nonreactive pupils.
Vitals maintained artificially for organ donation.
Patient not responsive to verbal stimuli.
Patient is pronounced .
Time of : 16:44
Date of : 01/14/24
Cause of : Anoxic brain injury secondary to cardiac arrest
Family Notified: Yes
--- NOTE | 2024-01-14 17:11 | W.PN.NEURO.1 ---
Today's Communication / Plan
-
63 yr. old male with h/o cardiac arrest who suffered catastrophic irreversible anoxic brain injury
Brain protocol completed with no evidence for brain stem function
Neuro Assessment/Plan
Assessment
63 year-old male with cardiac, completed TTM. Down time was approximately 10 mins. 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
CT Head 01/09/24: diffuse cerebral edema
Continuous EEG 01/09/24: no clear posterior dominant rhythm, little variability and muscle artifact obscuring aspects of the recording. Of what was visible, no clear seizure activity was seen. The study is consistent with severe diffuse cerebral
dysfunction, nonspecific in etiology.
I. Cardiac arrest x2, unclear total downtime, presumed to be 10 minutes initially and additional this after arrival to emergency department.
II. Recent C2-C5 hardware repair/laminectomy
Prognosis for patient is extremely poor based on unreactive EEG and CT of head demonstrating diffuse cerebral edema. Additionally, patient has pupillary dilatation without reactivity suggestive of herniation. Brain perfusion scan was
demonstrative of brain
Brain protocol completed with no dolls eye response to Cold Calorics
Plan
- Pat fulfilled brain criteria.
Terminal wean
Subjective/Objective
Subjective Data
Date of Service: January 14, 2024
Pat is unresponsive on ventilator off sedation
Objective Data
Vital Signs
Temp Pulse Resp BP Pulse Ox
36.4 C 121 18 131/65 87
01/14/24 12:25 01/14/24 16:30 01/13/24 21:30 01/12/24 23:09 01/14/24 16:30
Lab Results
01/13/24 04:20
PT 16.3 Sec (11.4-14.6) H 01/07/24 15:54
INR 1.33 01/07/24 15:54
APTT 110.7 Sec (23.4-35.0) H 01/14/24 11:38
Sodium 147 mmol/L (135-145) H 01/14/24 11:38
Potassium 3.6 mmol/L (3.5-5.1) 01/14/24 11:38
BUN 9 mg/dl (9-20) 01/14/24 11:38
Glucose 90 mg/dl (70-99) 01/14/24 11:38
Calcium 8.8 mg/dl (8.4-10.2) 01/14/24 11:38
Phosphorus 2.9 mg/dl (2.5-4.5) 01/13/24 04:20
Sxq-I-Cxdybjtofwi Pept 368 pg/ml 01/10/24 04:31
LDL Cholesterol, Calc 91 mg/dl 01/08/24 04:11
Patient Allergies
No Known Allergies Allergy (Verified 01/07/24 16:30)
Physical Exam
-
General: Other (Intubated vent dependent)
Eyes: Other (pupils dilated 8mm NR)
HEENT: Normocephalic, Atraumatic, Anicteric and Other
Neck: No Bruits Bilaterally
Respiratory: Other (Vent dependent)
Cardiac: Other (Vent dependent)
GI: Other (No Bowel sounds)
Skin: Other
Extremities: Edema +1
Psych: Other
Extended Neurological Exam
Mood & Affect: Unable to Assess and Other
Attention Span & Concentration: Unresponsive to Verbal Stimuli, Unresponsive to Physical Stimuli and Other (NA)
Memory: Other (NA)
Tremor: Hand Tremor Absent and Head Tremor Absent
Involuntary Movement: None
Speech: Other (Intubated NR)
Cranial Nerve II: Left Eye: Unable to Assess
Cranial Nerve II: Right Eye: Unable to Assess
Cranial Nerves III, IV, : Extraocular Movement: Absent Doll's Eyes and Other (No respond to Cold water infusion in ear canal)
Cranial Nerve V: Facial Sensation: Other (NR. Corneal and conjunctival response absent)
Cranial Nerve VII: Facial Symmetry: Other (NR)
Cranial Nerve VIII: Hearing: Other (NR)
Cranial Nerves IX, X: Palate Movement: Other (NR)
Cranial Nerve XI: Shoulder Shrug: Other (NR)
Cranial Nerve XII: Tongue Protusion: Other (NR)
Muscle Strength, Overall: Other (Flaccid)
Muscle Bulk & Tone: Other (Flaccid)
Pronator Drift: Other (NA)
Deep Tendon Reflexes: Absent
Cold Sensation: Other
Vibration Sensation: Other
Touch Sensation: Other
Coordination: Other
Babinski Sign: Other
Gait & Station: Other
--- NOTE | 2024-01-14 17:27 | W.DCSUMMARY ---
Discharge Summary
Discharge Data
Date of Admission: 01/07/24
Date of Discharge: 01/14/24
-
Pending Results: No
Hospital Course
Discharging Physician : Dr. Ruiz, Dr. Deleon
Disposition :
Primary care physician : Zay Quispe
Principal Discharge diagnosis : Cardiac arrest out of hospital, pulseless electrical activity, nonshockable rhythm, anoxic brain injury, brain , aspiration pneumonia, acute kidney injury
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
Hospital Course : Presented to ED 01/07/24 via EMS for out of hospital cardiac arrest. At home he reported chest/back pain and his found him unresponsive. ACLS by EMS and ROSC achieved en route to hospital. In ED, he was found to be in PEA and
bicarb x2, calcium, epi x3 administered with continued ACLS, nonshockable rhythm. ROSC was achieved, levophed drip started, mechanically ventilated, and admitted to ICU. Downtime was estimated to be about 10 minutes. On admission chest CTA was
negative for pulmonary embolism, and head CT was negative for acute stroke or intracranial hemorrhage. Echo showed no regional wall motion abnormalities, ejection fraction 60-65%. Unable to ascertain cause of cardiac arrest. Target temperature
management was initiated and hypothermia was maintained for 24 hours followed by gradual rewarming protocol. EEG consistent with severe diffuse cerebral dysfunction. Repeat head CTs demonstrated diffuse cytotoxic edema and cerebellar tonsillar
herniation. Condition unchanged following hypertonic saline. Nuclear medicine brain scan 01/14/24 demonstrated no perfusion to brain. Neurologic testing, physical exam, and apnea test consistent with brain . Time of declared 164 on
01/14/24. His vital signs were artificially maintained and mechanical ventilation was continued to allow for organ donation according to patient's wishes per his family and medical decision maker.
Important imaging findings :
Head CT 01/06
FINDINGS:
The ventricles are normal in size, configuration, and position for age. There is no intra- or extra-axial mass, hemorrhage, or fluid collection. No areas of abnormal mass effect or attenuation are noted. Mild mucosal thickening of the left
ethmoid and sphenoid sinuses. No depressed calvarial fracture.
IMPRESSION:
No acute intracranial abnormality noted.
Chest CTA 01/06
IMPRESSION:
1. No evidence of pulmonary embolism.
2. Confluent right lower lobe consolidation likely reflects combination of atelectasis and pneumonia. Additional scattered bilateral multifocal pneumonia as described.
Head CT 01/08
IMPRESSION:
Findings consistent with diffuse cytotoxic edema reflecting hypoxic-ischemic encephalopathy, with supratentorial and infratentorial brain swelling. Mass effect results in cerebral sulcal effacement, as well as effacement of posterior fossa cisterns.
There is also mass effect compressing the aqueduct of Sylvius and fourth ventricle, with secondary mild hydrocephalus having developed. No katt herniation identified. No midline shift.
Accentuated hyper density of the falx and tentorium, as described, likely the result of diffuse brain hypodensity. This also likely contributes to appearance suggesting slight uniform thickening in the appearance of the tentorium. The possibility of
diffuse uniform subdural hematoma along the tentorium is felt to be less likely; this may be assessed on follow-up imaging.
Head CT 01/10
FINDINGS:
Prominent appearance of the lateral and third ventricles, similar to prior. Stable appearance of diffuse effacement of the sulci and gyri compatible with global anoxic injury. Downward herniation of the cerebellar tonsils redemonstrated. There is
no intra- or extra-axial mass, hemorrhage, or fluid collection. Visualized paranasal sinuses are free of mucosal disease. No depressed calvarial fracture.
IMPRESSION:
Stable exam suggesting global hypoxic ischemic injury and possible obstructive hydrocephalus.
Nuclear medicine brain scan 01/10
FINDINGS:
There is blood flow to the brain and symmetric radiopharmaceutical activity seen throughout both cerebral hemispheres. There is no scintigraphic evidence for brain .
IMPRESSION:
No scintigraphic evidence for brain .
Nuclear medicine brain scan 01/13
FINDINGS and IMPRESSION: As compared to recent prior study, there is no demonstrable intracranial blood flow, pattern of which is consistent with brain .
Procedure findings :
EEG 01/08
This EEG is abnormal due to the presence of relatively low amplitude activity, no clear posterior dominant rhythm, little to no variability and muscle artifact obscuring aspects of the recording. Of what was visible, no clear seizure activity was
seen. The study is consistent with severe diffuse cerebral dysfunction, nonspecific in etiology.
Discharge Plan
-
Patient Disposition:
Date/Time
Date/Time: 01/14/24 16:44
Discharge Date and Time
Print Language: ARMENIAN
[2024-01-14 17:30] VITALS: BP_SYST 59
[2024-01-14 18:36] LABS: Blood Urea Nitrogen 9 mg/dl (9-20); Calcium 9.3 mg/dl (8.4-10.2); Carbon Dioxide 26 mmol/L (22-30); Chloride 110 mmol/L (98-107); Estimated Creatinine Clearance 92 ml/min; Glucose 106 mg/dl (70-99); Potassium 3.7 mmol/L (3.5-5.1); Sodium 146 mmol/L (135-145); eGFR > 60.00
[2024-01-14 18:42] LABS: APTT 154.9 Sec (23.4-35.0)
[2024-01-14 18:46] LABS: Glucose - Point of Care 97 mg/dl (70-99)
[2024-01-14 19:00] VITALS: BP_SYST 115
--- NOTE | 2024-01-14 19:15 | PTCARENOTE ---
Resumed care of pt this evening. Received pt intubated and on Levo/heparin gtts via left PICC central line. Pt unresponsive to all stimuli. [facility], Daniel, following pt's status. Pt is in NSR on tele monitor, has +2 GA, and B/L pedal pulses
present w/ doppler. Pulse ox is 94% with current vent settings. Pt has rt nare [place] sump connected to low intermittent suctioning. Bowel sounds are hypoactive. Hall cath in place and is draining parisa colored urine. Pt's surgical dressing on neck
and upper back is C/D/I.
[2024-01-14 19:39] LABS: COVID-19 Antigen Negative (Negative)
[2024-01-14] MEDS: LEVOTHROID 510 MCG IV (20:19)
--- NOTE | 2024-01-14 20:30 | PTCARENOTE ---
Synthroid gtt initiated by this RN per order.
[2024-01-14 21:00] VITALS: BP_SYST 78
--- NOTE | 2024-01-14 22:50 | PTCARENOTE ---
Pt transferred via [facility] transport team to [facility]. Pts personal belongings taken by family.
[2024-01-16 07:56] LABS: 24 Hour Urine Total Volume Random mL; Chloride, Urine 247 mmol/L; Creatinine, Urine per Volume 69 mg/dL; Urine Collection Length Random hr
== END 2024-01-14 22:50 | disposition expired | DRG 207 ==
LOC: ICU 17:57
PROVIDERS: Clinical Nurse Specialist Family Health; Hospitalist; Internal Medicine Critical Care Medicine; Nurse Practitioner Family; Nurse Practitioner Primary Care; Student in an Organized Health Care Education/Training Program; ADMITTING PHYSICIAN Hospitalist; ATTENDING PHYSICIAN Internal Medicine; CONSULT PHYSICIAN Internal Medicine; CONSULT PHYSICIAN Internal Medicine Critical Care Medicine; EMERGENCY PHYSICIAN Student in an Organized Health Care Education/Training Program; FAMILY PHYSICIAN Family Medicine; OTHER PHYSICIAN Psychiatry & Neurology Neurology
PROC: 5A1955Z Respiratory Ventilation, Greater than 96 Consecutive Hours (ICD-10-PCS; 2024-01-07)
DX: J96.90 Respiratory failure, unspecified, unspecified whether with hypoxia or hypercapnia (principal); I21.A1 Myocardial infarction type 2; J69.0 Pneumonitis due to inhalation of food and vomit; G93.6 Cerebral edema; G93.5 Compression of brain; I48.92 Unspecified atrial flutter; E87.1 Hypo-osmolality and hyponatremia; I45.2 Bifascicular block; N17.9 Acute kidney failure, unspecified; G93.1 Anoxic brain damage, not elsewhere classified; E87.0 Hyperosmolality and hypernatremia; J98.11 Atelectasis; I47.10 Supraventricular tachycardia, unspecified; I46.9 Cardiac arrest, cause unspecified; E87.6 Hypokalemia; I48.0 Paroxysmal atrial fibrillation; H57.02 Anisocoria
CPT/HCPCS: 93308; 51702; 70450; 71045; 71275; 78601; 80048; 80053; 80061; 81003; 81015; 82248; 82330; 82436; 82550; 82553; 82570; 82805; 82962; 83036; 83605; 83735; 83880; 83935; 84100; 84132; 84134; 84295; 84300; 84302; 84439; 84443; 84478; 84484; 85025; 85027; 85610; 85730; 86850; 86900; 86901; 87070; 87077; 87186; 87205; 87811; 93005; 94002; 94003; 95714; 96374; 99291; A9521; J2597; Q9967